=== PATIENT | female | born 1965 | race Caucasian/White ===

== ENCOUNTER 2016-12-08 18:38 | Emergency (ER) | payer OTHER ==
[~2016-12-08] VITALS: Ht 154.9 cm; Wt 57.7 kg
[2016-12-08 18:45] VITALS: TEMP 36.6; Ht 154.9 cm; Wt 57.7 kg
[2016-12-08] MEDS ORDERED: SODIUM CHLORIDE 0.9% 1000ML 1,000 ML IV STA (19:01)
[2016-12-08] MEDS ORDERED: TIZA4CAP PO (19:08)
[2016-12-08] MEDS ORDERED: MYCO250C26 PO (19:08)
[2016-12-08] MEDS ORDERED: MELATAB2 PO (19:08)
[2016-12-08] MEDS ORDERED: PRLSR20 PO (19:08)
[2016-12-08] MEDS ORDERED: B-COTAB18 PO (19:08)
[2016-12-08] MEDS ORDERED: DULO60CA44 PO (19:08)
[2016-12-08] MEDS ORDERED: CHOL1000 PO (19:08)
[2016-12-08] MEDS ORDERED: VITACAP26 PO (19:08)
[2016-12-08] MEDS ORDERED: MELO15TA4 PO (19:08)
[2016-12-08 19:22] LABS: BASO % 0.5 %; BASO ABS # 0.03 K/uL (0-0.2); COMPLETE YES; EOS % 1.7 %; HEMATOCRIT 37.5 % (37-47); IG% 0.2 %; LYMPH % 45.7 %; LYMPH ABS # 2.89 K/uL (1.2-3.4); MEAN CORPUSCULAR HEMOGLOBIN 29.9 pg (25-34); MEAN CORPUSCULAR HGB CONC 34.4 g/dl (32-36); MEAN PLATELET VOLUME 10.2 fL (7.4-10.4); MONO % 5.8 %; NEUT % 46.1 %; PLATELET COUNT 196 K/uL (130-400); RED BLOOD COUNT 4.31 M/uL (4.2-5.4); WHITE BLOOD COUNT 6.33 K/uL (4.8-10.8)
[2016-12-08 19:44] LABS: ALT/SGPT 57 U/L (12-78); AST/SGOT 30 U/L (15-37); BLOOD UREA NITROGEN 13 mg/dl (7-18); BUN/CREATININE RATIO 17.7 (10-20); CARBON DIOXIDE 28 mmol/L (21-32); CHLORIDE 108 mmol/L (98-107); CREATININE 0.73 mg/dl (0.60-1.20); GLUCOSE 97 mg/dl (70-99); POTASSIUM 3.7 mmol/L (3.5-5.1); SODIUM 143 mmol/L (136-145)
[2016-12-08 19:47] LABS: ALKALINE PHOSPHATASE 75 U/L (45-117)
--- NOTE | 2016-12-08 20:46 | DIAGNOSTIC IMAGING REPORT ---
PA CHEST WITH ABDOMINAL SERIES CLINICAL HISTORY: Constipation. Generalized abdominal pain. FINDINGS: A PA chest radiograph is obtained. No prior studies are available for comparison at the time of dictation. The examination is degraded by patient rotation. The cardiomediastinal silhouette is unremarkable. Nonspecific interstitial thickening is noted. A tiny calcified granulomas noted in the right lung base. There is no airspace consolidation or pleural effusion. No pneumothorax is seen. The bony thorax is grossly intact. Supine and erect abdominal radiographs are obtained. No prior studies are available for comparison at the time of dictation. There is a nonobstructed abdominal bowel gas pattern noting moderate to severe constipation. No intraperitoneal free air is seen. Cholecystectomy clips are noted. There are no abnormal abdominal calcifications. A small phlebolith is identified in the pelvis. The lumbosacral spine and bony pelvis appear intact. IMPRESSION: 1. No active disease in the chest. 2. Moderate to severe constipation. Electronically signed by: Bassem Ramos M.D. 12/08/2016 8:44 PM Dictated Date/Time: 12/08/2016 8:43 PM
--- NOTE | 2016-12-08 21:15 | EMERGENCY ROOM VISIT NOTE ---
History First contact with patient: 18:54 Chief Complaint: ABDOMINAL PAIN Stated Complaint: ABD/INTESTINAL PAIN Nursing Triage Summary: Abdomenal pain in right lower and left upper quads. + nausea. Pain in back and legs. Pt has h/o diverticulitis with colostomy x2 with reversal. History of Present Illness The patient is a 51 year old female who presents to the Emergency Room with complaints of abdominal pain and constipation. The patient states that she has had pain in the right lower quadrant and left upper quadrants for one month but the pain has increased over the past several days. The patient has not had a bowel movement since November 22. The patient did a fleets enema 2 days ago without any results. The patient is now complaining of nausea but denies any vomiting. The patient denies any urinary symptoms of frequency, urgency or dysuria. The patient has a history of diverticulitis with rupture 2. The patient had colostomies with reversals 2. Her last: Surgery was in 2002 and this was performed in [place]. The patient saw her PCP on November 26 for her abdominal pain and was referred to Dr. dalton. She does not have an appointment for another 2 weeks therefore she came to the emergency room. The patient denies any chronic narcotic use. She has not tried anything orally for the constipation such as MiraLAX, Dulcolax, magnesium citrate. Review of Systems 10 system review was performed and was negative unless stated otherwise history of present illness. Social History Smoking Status: Current Every Day Smoker Alcohol Use: none Drug Use: none Marital Status: single Housing Status: other (lives with her mother and her grandson) Occupation Status: unemployed Current/Historical Medications Scheduled B-Complex Vitamins (Vitamin B Complex), 1 TAB PO DAILY Cholecalciferol (Vitamin D3), 1 TAB PO DAILY Duloxetine Hcl (Cymbalta), 60 MG PO DAILY Melatonin (Melatonin Maximum Strengt), 1 TAB PO HS Meloxicam (Meloxicam), 1 TAB PO DAILY Mycophenolate Mofetil (Cellcept), 2 CAP PO BID Omeprazole (Prilosec), 20 MG PO DAILY Tizanidine (Zanaflex), 4 MG PO BID Vitamins C & E (Vitamin C), 1 CAP PO DAILY Allergies Coded Allergies: Aspirin (Unverified Allergy, Unknown, unknown, 12/08/16) Sulfamethoxazole w/Trimethoprim (Unverified Allergy, Unknown, unknown, 12/08) Physical Exam Vital Signs Date Time Temp Pulse Resp B/P Pulse Ox O2 Delivery O2 Flow Rate FiO2 12/08/16 20:17 60 20 129/80 99 Room Air 12/08/16 18:45 36.6 96 18 138/82 96 Room Air Physical Exam GENERAL: 51-year-old white female appears in no acute distress. MENTAL Status: Alert and oriented 3 MOUTH: Mucosa is moist NECK: Supple, no lymphadenopathy noted. No carotid bruits noted. LUNGS: Clear auscultation without wheezes rales or rhonchi. CARDIAC: Regular rate and rhythm without murmur. Pulses is full and equal throughout. BACK: No CVA tenderness noted. ABDOMEN: Patient has hypoactive bowel sounds in bilateral upper quadrants and right lower quadrant. Bowel sounds are absent in the left lower quadrant. The patient's abdomen is firm and has diffuse tenderness to palpation. EXTREMITIES: No cyanosis or edema noted. Medical Decision & Procedures ER Provider Diagnostic Interpretation: PA CHEST WITH ABDOMINAL SERIES CLINICAL HISTORY: Constipation. Generalized abdominal pain. FINDINGS: A PA chest radiograph is obtained. No prior studies are available for comparison at the time of dictation. The examination is degraded by patient rotation. The cardiomediastinal silhouette is unremarkable. Nonspecific interstitial thickening is noted. A tiny calcified granulomas noted in the right lung base. There is no airspace consolidation or pleural effusion. No pneumothorax is seen. The bony thorax is grossly intact. Supine and erect abdominal radiographs are obtained. No prior studies are available for comparison at the time of dictation. There is a nonobstructed abdominal bowel gas pattern noting moderate to severe constipation. No intraperitoneal free air is seen. Cholecystectomy clips are noted. There are no abnormal abdominal calcifications. A small phlebolith is identified in the pelvis. The lumbosacral spine and bony pelvis appear intact. IMPRESSION: 1. No active disease in the chest. 2. Moderate to severe constipation. Electronically signed by: Bassem Ramos M.D. 12/08/2016 8:44 PM Laboratory Results 12/08/16 19:10 Red Blood Count 4.31, Mean Corpuscular Volume 87.0, Mean Corpuscular Hemoglobin 29.9, Mean Corpuscular Hemoglobin Concent 34.4, Mean Platelet Volume 10.2, Neutrophils (%) (Auto) 46.1, Lymphocytes (%) (Auto) 45.7, Monocytes (%) (Auto) 5.8, Eosinophils (%) (Auto) 1.7, Basophils (%) (Auto) 0.5, Neutrophils # (Auto) 2.92, Lymphocytes # (Auto) 2.89, Monocytes # (Auto) 0.37, Eosinophils # (Auto) 0.11, Basophils # (Auto) 0.03 12/08/16 19:10 Test 12/08/16 19:10 White Blood Count 6.33 K/uL (4.8-10.8) Red Blood Count 4.31 M/uL (4.2-5.4) Hemoglobin 12.9 g/dL (12.0-16.0) Hematocrit 37.5 % (37-47) Mean Corpuscular Volume 87.0 fL (80-100) Mean Corpuscular Hemoglobin 29.9 pg (25-34) Mean Corpuscular Hemoglobin Concent 34.4 g/dl (32-36) Platelet Count 196 K/uL (130-400) Mean Platelet Volume 10.2 fL (7.4-10.4) Neutrophils (%) (Auto) 46.1 % Lymphocytes (%) (Auto) 45.7 % Monocytes (%) (Auto) 5.8 % Eosinophils (%) (Auto) 1.7 % Basophils (%) (Auto) 0.5 % Neutrophils # (Auto) 2.92 K/uL (1.4-6.5) Lymphocytes # (Auto) 2.89 K/uL (1.2-3.4) Monocytes # (Auto) 0.37 K/uL (0.11-0.59) Eosinophils # (Auto) 0.11 K/uL (0-0.5) Basophils # (Auto) 0.03 K/uL (0-0.2) RDW Standard Deviation 41.3 fL (36.4-46.3) RDW Coefficient of Variation 12.9 % (11.5-14.5) Immature Granulocyte % (Auto) 0.2 % Immature Granulocyte # (Auto) 0.01 K/uL (0.00-0.02) Anion Gap 7.0 mmol/L (3-11) Est Creatinine Clear Calc Drug Dose 76.1 ml/min Estimated GFR () 112.1 Estimated GFR (Non- 96.7 BUN/Creatinine Ratio 17.7 (10-20) Calcium Level 9.0 mg/dl (8.5-10.1) Total Bilirubin 0.5 mg/dl (0.2-1) Direct Bilirubin < 0.1 mg/dl (0-0.2) Aspartate Amino Transf (AST/SGOT) 30 U/L (15-37) Alanine Aminotransferase (ALT/SGPT) 57 U/L (12-78) Alkaline Phosphatase 75 U/L (45-117) Total Protein 7.5 gm/dl (6.4-8.2) Albumin 4.0 gm/dl (3.4-5.0) Lipase 148 U/L (73-393) Medications Administered Medications (Trade) Dose Ordered Sig/Arnold Route Start Time Stop Time Status Last Admin Dose Admin Sodium Chloride (Nss 1000ml) 1,000 ml @ 999 mls/hr Q1H1M STAT IV 12/08/16 19:01 12/08/16 20:01 DC 12/08/16 19:20 999 MLS/HR ED Course The patient was evaluated. IV access was obtained. The patient was given 1 L normal saline wide-open. The patient was offered pain medication but declined. CBC and differential, renal profile, LFTs and lipase levels were ordered. Abdominal series x-ray was ordered and interpreted by the radiologist and myself as above with moderate to severe constipation no obstruction was noted.. Labs are reviewed and were unremarkable. The patient was informed of all findings. The patient's case was discussed with Dr. Stearns who agreed with treatment plan. He recommended that the patient do magnesium Citrate followed by MiraLAX daily. I spoke with the patient. She states she has done that magnesium Citrate and does not tolerate it. She states she vomits immediately. The patient was then given instructions on taking an alternate plan of MiraLAX and Dulcolax. This will be given to the patient at discharge. The patient was discharged home in stable condition. Medical Decision Differential diagnosis include bowel obstruction, fecal impaction, constipation Impression Primary Impression: Constipation Departure Information Dispostion Home / Self-Care Condition GOOD Referrals No Doctor, Assigned (PCP) Forms Call Back Authorization, HOME CARE DOCUMENTATION FORM, IMPORTANT VISIT INFORMATION Patient Instructions Constipation, [employer] Additional Instructions Push fluids. Take half a bottle of MiraLAX with 32 ounces of Gatorade. 4-6 hours later take the second half of the bottle of MiraLAX with 32 ounces of Gatorade and 4 Ducolav. If you do not have a bowel movement within 24 hours, return to the ER. Recommend continuing MiraLAX daily as directed on the label. Follow-up with your family doctor next week for reevaluation. Keep your scheduled appointment with Dr. dalton
[2016-12-08 21:19] VITALS: BP 133/90; PULSE 57; O2SAT 97
[2017-02-01] MEDS ORDERED: B-COTAB18 PO (12:55)
[2017-02-01] MEDS ORDERED: LINA1CAP PO (12:55)
[2017-02-01] MEDS ORDERED: CHOL100010 PO (12:55)
[2017-02-01] MEDS ORDERED: ASCA500 PO (12:55)
[2017-02-01] MEDS ORDERED: CETI10TA10 PO (12:55)
== END 2016-12-08 21:29 | disposition home or self-care (01) ==
LOC: C.EDB 18:40 → C.EDA 21:29
DX: K59.00 Constipation, unspecified (principal); R11.0 Nausea; F17.210 Nicotine dependence, cigarettes, uncomplicated; Z79.899 Other long term (current) drug therapy

== ENCOUNTER → 2017-01-31 | Outpatient (CLI) | payer OTHER ==
[~2017-01-31] MED LIST: ASCA500 PO; B-COTAB18 PO; CETI10TA10 PO; CHOL1000 PO; CHOL100010 PO; DULO60CA44 PO; LINA1CAP PO; MELATAB2 PO; MELO15TA4 PO; MYCO250C26 PO; OPTIRAY 320 IV PRN; PRLSR20 PO; TIZA4CAP PO; VITACAP26 PO
--- NOTE | 2017-01-31 13:43 | DIAGNOSTIC IMAGING REPORT ---
CT OF THE ABDOMEN AND PELVIS WITH CONTRAST CLINICAL HISTORY: Abdominal pain of multiple sites. Constipation. COMPARISON STUDY: The bowel series December 08, 2016. TECHNIQUE: Following IV administration of 110 mL of Optiray-320, axial images of the abdomen and pelvis were obtained from the lung bases to the proximal femurs. Images were reviewed in the axial, sagittal, and coronal planes. IV contrast was administered without complication. Oral contrast was administered. CT DOSE: 273.79 mGy.cm FINDINGS: The liver, spleen, adrenal glands and pancreas are unremarkable. There is no significant biliary ductal dilatation status post cholecystectomy. There is no hydronephrosis. A 6 mm hypodense lesion within the midpole of the right kidney is too small to characterize but likely reflects a cyst. There is no hydronephrosis. There is no evidence for a bowel obstruction. There is a large amount stool within the colon. There is minimal stool within the rectum. The appendix is not visualized. There is no lymphadenopathy or ascites. There is moderate atherosclerotic plaque of the abdominal aorta which is normal in caliber. No suspicious osseous lesions are present. IMPRESSION: 1. No acute process within the abdomen or pelvis. 2. Large amount of stool within the colon. No bowel obstruction. Electronically signed by: Malcolm Christine M.D. 01/31/2017 1:42 PM Dictated Date/Time: 01/31/2017 1:35 PM
== END | disposition home or self-care (01) ==
LOC: C.CTS 10:19
PROVIDERS: ATTEND Internal Medicine
DX: R10.9 Unspecified abdominal pain (principal)

== ENCOUNTER → 2017-02-11 | Day surgery (SDC) | payer OTHER ==
[2017-02-01 12:58] VITALS: Ht 154.9 cm; Wt 58.6 kg
[~2017-02-11] VITALS: Ht 154.9 cm; Wt 58.6 kg
[~2017-02-11] MED LIST changes: -CHOL1000 PO; +LIDOCAINE HCL 2% 2 ML VIAL (20MG/ML) ONE; +MIDAZOLAM HCL 1 MG/ML 2ML VIAL ONE; +ONDANSETRON INJ 2 MG/ML 2 ML VIAL ONE; -OPTIRAY 320 IV PRN; +PROPOFOL IV EMULSION 10 MG/ML 20 ML VIAL IV ONE; -VITACAP26 PO
--- NOTE | 2017-02-11 14:16 | Endo History and Physical ---
History & Physical Date of Service: February 11, 2017. Chief Complaint: abdominal pain,bloating and constipation Referring Physician: no PCP assigned History of Present Illness 52 yo CF who presents for Colonoscopy secondary to abdominal pain, bloating and constipation. Past Surgical History Hx Cardiac Surgery: No Hx Internal Defibrillator: No Hx Pacemaker: No Hx Abdominal Surgery: Yes (COLON RESECTION WITH COLOSTOMY AND REVERSAL X2, ABD SURGERY FOR INFECTION) Hx of Implantable Prosthesis: No Hx Post-Op Nausea and Vomiting: No Hx Cancer Surgery: No Hx Thoracic Surgery: No Hx Orthopedic: Yes (TRIGGER FINGER) Hx Urinary Tract Surgery: No Family History Colon CA, IBD Social History Smoking Status: Current Every Day Smoker Hx Substance Use: No Hx Alcohol Use: No Allergies Coded Allergies: Aspirin (Verified Allergy, Unknown, NOSE BLEEDS, 02/11/17) Sulfamethoxazole w/Trimethoprim (Verified Allergy, Unknown, HIVES, 02/11/17) Current Medications Reported Home Medications Medications Dose Route/Sig Max Daily Dose Days Date Category Vitamin C (Ascorbic Acid) 500 Mg Tab 1 Tab PO QAM 02/01/17 Reported Vitamin B Complex (B-Complex Vitamins) 1 Tab Tab 1 Tab PO QAM 02/01/17 Reported Vitamin D (Cholecalciferol) 1,000 Unit Tab 1 Tab PO QAM 02/01/17 Reported Zyrtec (Cetirizine Hcl) 10 Mg Tab 10 Mg PO QAM 02/01/17 Reported Linzess (Linaclotide) 145 Mcg Cap 1 Cap PO QAM 02/01/17 Reported Melatonin Maximum Strengt (Melatonin) 5 Mg Tab 1 Tab PO HS 12/08/16 Reported Cellcept (Mycophenolate Mofetil) 250 Mg Cap 1 Cap PO BID 12/08/16 Reported Meloxicam 15 Mg Tab 1 Tab PO HS 12/08/16 Reported Zanaflex (Tizanidine HCl) 4 Mg Cap 4 Mg PO BID 12/08/16 Reported Prilosec (Omeprazole) 20 Mg Capcr 20 Mg PO HS 12/08/16 Reported Cymbalta (Duloxetine Hcl) 60 Mg Cap 60 Mg PO HS 12/08/16 Reported Vital Signs Weight (Kilograms): 58.64 Height (Feet): 5 Height (Inches): 1 Date Time Temp Pulse Resp B/P Pulse Ox O2 Delivery O2 Flow Rate FiO2 02/11/17 13:51 36.7 95 20 117/79 96 Room Air Physical Exam General Appearance: WD/WN, no apparent distress Respiratory/Chest: Auscultation: breath sounds normal Cardiovascular: Heart Auscultation: RRR Abdomen: Bowel Sounds: normal Inspection & Palpation: soft, non-distended, no tenderness, guarding & rebound Assessment and Plan Assessment: 52 yo CF who presents for Colonoscopy secondary to abdominal pain, bloating and constipation. Plan: Proceed with colonoscopy.
--- NOTE | 2017-02-11 14:49 | Discharge Instructions ---
Endoscopy Patient Instructions Date / Procedure(s) Performed February 11, 2017. Colonoscopy Allergy Information Coded Allergies: Aspirin (Verified Allergy, Unknown, NOSE BLEEDS, 02/11/17) Sulfamethoxazole w/Trimethoprim (Verified Allergy, Unknown, HIVES, 02/11/17) Discharge Date / Findings February 11, 2017. Normal colonoscopy Medication Instructions Stopped Medication(s): stopped all meds on Saturday OK to resume all medications today as prescribed Reported Home Medications Medications Dose Route/Sig Max Daily Dose Days Date Category Vitamin C (Ascorbic Acid) 500 Mg Tab 1 Tab PO QAM 02/01/17 Reported Vitamin B Complex (B-Complex Vitamins) 1 Tab Tab 1 Tab PO QAM 02/01/17 Reported Vitamin D (Cholecalciferol) 1,000 Unit Tab 1 Tab PO QAM 02/01/17 Reported Zyrtec (Cetirizine Hcl) 10 Mg Tab 10 Mg PO QAM 02/01/17 Reported Linzess (Linaclotide) 145 Mcg Cap 1 Cap PO QAM 02/01/17 Reported Melatonin Maximum Strengt (Melatonin) 5 Mg Tab 1 Tab PO HS 12/08/16 Reported Cellcept (Mycophenolate Mofetil) 250 Mg Cap 1 Cap PO BID 12/08/16 Reported Meloxicam 15 Mg Tab 1 Tab PO HS 12/08/16 Reported Zanaflex (Tizanidine HCl) 4 Mg Cap 4 Mg PO BID 12/08/16 Reported Prilosec (Omeprazole) 20 Mg Capcr 20 Mg PO HS 12/08/16 Reported Cymbalta (Duloxetine Hcl) 60 Mg Cap 60 Mg PO HS 12/08/16 Reported Provider Instructions Activity Restrictions - No exercising or heavy lifting for 24 hours. - Do not drink alcohol the day of the procedure. - Do not drive a car or operate machinery until the day after the procedure. - Do not make any important decisions or sign important papers in 24 hours after the procedure. Following Day: - Return to full activity which may include returning to work/school. Diet Start your diet with liquids and light foods (jello, soup, juice, toast). Then eat your usual diet if not nauseated. Treatment For Common After Affects For mild abdominal pain, bloating, or excessive gas: - Rest - Eat lightly - Lie on right side Follow-Up Information Follow-up with no PCP assigned as scheduled Anesthesia Information What You Should Know You have had a procedure that required some medicine to reduce anxiety and discomfort. This treatment is called moderate sedation. After receiving the treatment, you may be sleepy, but you will be able to breathe on your own. The effects of the treatment may last for several hours. Follow these instructions along with Activity/Diet recommendations noted above: * Do NOT do anything where dizziness or clumsiness would be dangerous. * Rest quietly at home today, then you can be up and about tomorrow. * Have a responsible person stay with you the rest of today. * You may have had an I.V. today. If so, you may take the dressing off later today. Recommendations Call your doctor if: * Trouble breathing * Continuous vomiting for more than 24 hours * Temperature above 101 degrees * Severe abdominal pain or bloating * Pain not relieved by pain medicine ordered * There is increased drainage or redness from any incision * A large amount of rectal bleeding greater than 2-3 tablespoons. (If you had a polyp/s removed or have hemorrhoids, a small amount of blood - from the rectum is to be expected.) * You have any unanswered questions or concerns. IN THE EVENT OF A SERIOUS EMERGENCY, GO TO THE NEAREST EMERGENCY ROOM Your discharge instructions were prepared by provider Jeff Stapleton. Patient Instructions Signature Page Glenny Silva Patient (or Guardian) Signature/Date: I have read and understand the instructions given to me by my caregivers. Caregiver/RN/Doctor Signature/Date: The above-named patient and/or guardian has received patient instructions on this date. + Original Patient Signature Page (only) stays with chart. Please make copy for patient.
--- NOTE | 2017-02-11 14:58 | GI REPORT ---
Procedure Date: 02/11/2017 2:16 PM Procedure: Colonoscopy Indications: Generalized abdominal pain, Incidental constipation noted Medicines: Monitored Anesthesia Care Complications: No immediate complications. Estimated Blood Loss: Estimated blood loss: none. Procedure: Pre-Anesthesia Assessment: - Prior to the procedure, a History and Physical was performed, and patient medications and allergies were reviewed. The patient's tolerance of previous anesthesia was also reviewed. The risks and benefits of the procedure and the sedation options and risks were discussed with the patient. All questions were answered, and informed consent was obtained. Prior Anticoagulants: The patient has taken no previous anticoagulant or antiplatelet agents. ASA Grade Assessment: II - A patient with mild systemic disease. After reviewing the risks and benefits, the patient was deemed in satisfactory condition to undergo the procedure. After I obtained informed consent, the scope was passed under direct vision. Throughout the procedure, the patient's blood pressure, pulse, and oxygen saturations were monitored continuously. The scope was introduced through the anus and advanced to the ileocolonic anastomosis. The colonoscopy was performed without difficulty. The patient tolerated the procedure well. The quality of the bowel preparation was good. The terminal ileum, ileocecal valve, appendiceal orifice, and rectum were photographed. Findings: There was evidence of a prior end-to-side ileo-colonic anastomosis in the ascending colon. This was patent and was characterized by healthy appearing mucosa. The anastomosis was not traversed. Impression: - Patent end-to-side ileo-colonic anastomosis, characterized by healthy appearing mucosa. - No specimens collected. Recommendation: - Resume previous diet. - Continue present medications. - Repeat colonoscopy in 10 years for surveillance. - Return to primary care physician as previously scheduled. Jeff Stapleton, 02/11/2017 2:57:30 PM This report has been signed electronically. Note Initiated On: 02/11/2017 2:16 PM I attest to the content of the Intraoperative Record and orders documented therein, exceptions below
[2017-02-11 15:15] VITALS: BP 109/78; PULSE 78; O2SAT 98
--- NOTE | 2017-02-11 16:02 | Anesthesiology Progress Note ---
Anesthesia Post Op Note Date & Time February 11, 2017 at 16:01 Vital Signs Pain Intensity: 0 Vital Signs Past 12 Hours Date Time Temp Pulse Resp B/P Pulse Ox O2 Delivery O2 Flow Rate FiO2 02/11/17 15:15 78 20 109/78 98 Room Air 02/11/17 14:59 75 16 101/58 98 Room Air 02/11/17 14:43 84 16 93/56 96 Room Air 02/11/17 13:51 36.7 95 20 117/79 96 Room Air Notes Mental Status: alert / awake / arousable, participated in evaluation Pt Amnestic to Procedure: Yes Nausea / Vomiting: adequately controlled Pain: adequately controlled Airway Patency, RR, SpO2: stable & adequate BP & HR: stable & adequate Hydration State: stable & adequate Anesthetic Complications: no major complications apparent
== END | disposition home or self-care (01) ==
LOC: C.GI 13:31
PROVIDERS: ATTEND Internal Medicine
DX: R10.84 Generalized abdominal pain (principal); K59.00 Constipation, unspecified; F17.200 Nicotine dependence, unspecified, uncomplicated; Z90.49 Acquired absence of other specified parts of digestive tract; Z80.0 Family history of malignant neoplasm of digestive organs

== ENCOUNTER 2017-11-29 16:56 | Inpatient (IN) | payer OTHER ==
[~2017-11-29] VITALS: Ht 154.9 cm; Wt 55.6 kg
[~2017-11-29 16:56] MED LIST changes: -DULO60CA44 PO; -LIDOCAINE HCL 2% 2 ML VIAL (20MG/ML) ONE; -MELATAB2 PO; -MELO15TA4 PO; -MIDAZOLAM HCL 1 MG/ML 2ML VIAL ONE; -MYCO250C26 PO; -ONDANSETRON INJ 2 MG/ML 2 ML VIAL ONE; -PRLSR20 PO; -PROPOFOL IV EMULSION 10 MG/ML 20 ML VIAL IV ONE; -TIZA4CAP PO
[2017-11-29] MEDS ORDERED: SODIUM CHLORIDE 0.9% 1000ML 1,000 ML IV STA (17:22)
[2017-11-29] MEDS ORDERED: CEFEPIME IV 2,000 MG in DEXTROSE 5% 100ML 100 ML IV STA (17:22)
[2017-11-29] MEDS ORDERED: ACETAMINOPHEN IV 100 ML IV STA (17:22)
[2017-11-29] MEDS ORDERED: VANCOMYCIN INJ 1,250 MG in SODIUM CHLORIDE 0.9% 500ML 500 ML IV STA (17:22)
[2017-11-29] MEDS ORDERED: VANCOMYCIN CONSULT ACTIVE PRN ×2 (17:30→19:45)
[2017-11-29] MEDS ORDERED: CYM/30 PO (17:48)
[2017-11-29] MEDS ORDERED: LINA72CA PO (17:48)
--- NOTE | 2017-11-29 17:55 | EMERGENCY ROOM VISIT NOTE ---
ED Visit Note First contact with patient: 17:06 CHIEF COMPLAINT: Left hand/arm infection HISTORY OF PRESENTING ILLNESS: This is a 52-year-old female who presents to the emergency department with complaint of left arm infection that started a few days ago. Patient states that she was playing with a puppy and got scratched on her left hand 5 days ago. She began to have some redness and swelling in the hand and went to another emergency department on Saturday evening, where she was given IM Rocephin and sent home on Keflex, which she has been taking. She states that the pain and swelling in her hand and arm have been getting progressively worse and last night she noticed red streaking up her arm. She saw her PCP today and he sent her to the ER for further evaluation. She states that she has constant pain, cannot move her fingers or make a fist due to pain and swelling, has excruciating pain with bending or straightening the elbow, rates her pain as 10/10. She has been taking Tylenol for her pain without improvement. She reports some associated chills, but denies any fevers, denies any numbness or tingling in the arm or fingers. She has noticed a small amount of yellow drainage from the wound on her left hand. She is right-hand dominant. Her tetanus is up-to-date. She is a current every day smoker, but is not a diabetic. She is on CellCept as a treatment for lupus. REVIEW OF SYSTEMS: A complete 10 point review of systems was reviewed with the patient with pertinent positives and negatives as per history of present illness. All else were negative. PAST MEDICAL HISTORY: Reviewed in chart. SOCIAL HISTORY: Lives at home with family. She is a current everyday smoker. She denies alcohol and recreational drugs. ALLERGIES: Reviewed in chart. PHYSICAL EXAM: CONSTITUTIONAL: Pleasant and cooperative. No acute distress, but appears in significant pain during exam. Mildly dehydrated, but otherwise well appearing and well nourished. HEENT: Normocephalic, atraumatic. Pupils equal, round and reactive to light, EOMI. TMs normal. Pharynx normal. Tacky mucous membranes. NECK: Supple, full active range of motion without discomfort. RESPIRATORY: Clear to auscultation bilaterally with no wheezing, crackles, rhonchi or stridor. Equal expansion bilaterally. CARDIOVASCULAR: Regular rate and rhythm with no murmurs, rubs or gallops. Normal peripheral perfusion. No edema. GASTROINTESTINAL: Soft, nontender, nondistended. No palpable masses or HSM. Bowel sounds present in all quadrants. MUSCULOSKELETAL: There is a superficial wound noted over the MCP joint of the left fifth finger, tender to palpation, with a small amount of yellow purulent discharge noted. There is diffuse erythema and swelling of the left hand, wrist , forearm, extending up to the mid upper arm. Significantly tender to palpation. There is red streaking noted on the anterior portion of the forearm extending proximal to the elbow joint. Patient has significant tenderness with passive flexion and extension of the fingers and wrist, unable to fully bend or straighten the elbow due to pain. The forearm compartments are soft to palpation. She is unable to approximate her thumb and fingers of the left hand , unable to make a fist. Sensation intact to light touch. Full range of motion of all other joints without discomfort. INTEGUMENTARY: No rash or other significant dermatologic conditions noted. NEUROLOGIC: Alert and oriented X 4 with normal affect. Normal speech. Normal gait observed. ED COURSE AND MEDICAL DECISION MAKING: CC: Patient presenting with complaint of left hand/arm cellulitis DIFFERENTIAL DIAGNOSIS: Includes, but not limited to cellulitis, abscess, MRSA infection, osteomyelitis, tenosynovitis, joint infection, sepsis/bacteremia, among others. INTERPRETATION OF LABS: No leukocytosis, no anemia, no significant electrolyte abnormality, normal renal function, normal liver enzymes. Coagulation factors within normal limits. ESR and CRP are elevated. IMAGING: L HAND MIN 3 VIEWS ROUTINE CLINICAL HISTORY: Cellulitis. Possible osteomyelitis. Redness. COMPARISON: None. DISCUSSION: No fractures or dislocations are visualized. There are no radiopaque foreign bodies. No air is visualized in the soft tissues. There are minor arthritic changes. There are no conventional radiographic findings to indicate acute osteomyelitis IMPRESSION: 1. No evidence of fracture 2. No evidence of osteomyelitis ----- L FOREARM 2 VIEWS ROUTINE CLINICAL HISTORY: Left forearm pain. Infection. EVALUATE FOR OSTEOMYELITIS COMPARISON: None. DISCUSSION: No fractures or dislocations are visualized. There are no radiopaque foreign bodies. There is no conventional radiographic evidence of osteomyelitis. IMPRESSION: 1. No evidence of fracture 2. No evidence of osteomyelitis ----- L HUMERUS MIN 2 VIEWS ROUTINE CLINICAL HISTORY: Left upper arm pain INFECTION COMPARISON: None. DISCUSSION: No fractures or dislocations are visualized. No radiopaque foreign bodies are visualized. There is no evidence of osteomyelitis. IMPRESSION: Unremarkable conventional radiographic evaluation of the left humerus. MEDICATION RECONCILIATION: I attest that I have personally reviewed the patient 's current medication list. INITIAL VITAL SIGNS REVIEW: I reviewed the patient's initial vital signs and interpret them as follows: T: Afebrile; BP: Normotensive; HR: Tachycardic; RR : Within the; Pulse Ox: Limits within normal limits on room air. Blood pressure screening: The patient was found to have normal blood pressure on screening and does not require follow-up for repeat blood pressure check. SUMMARY: Patient was evaluated at bedside, history and physical exam performed. Patient is alert and oriented, no acute distress, but does appear to be in significant pain, resting in the stretcher. Patient has moderate swelling of the left hand and forearm with red streaking noted extending from the hand to mid upper arm. Patient has significant pain with passive flexion and extension of the fingers, wrist, and elbow, as well as pain with palpation of the tendons in the wrist and hand. Orders were placed at bedside for labs, IV fluids, wound culture, blood cultures , IV cefepime and vancomycin for broad coverage, x-rays of the left hand, forearm, and humerus to evaluate for cellulitis. I offered the patient something for pain, she does not want any narcotics, therefore IV Tylenol was ordered for pain. Given the patient's pain with manipulation of the tendons, I am concerned for tenosynovitis, as well as worsening cellulitis and potential bacteremia given the streaking up the arm. Patient discussed with Dr. Mcbride, who also examined the patient and agrees with my assessment and plan. Labs and imaging reviewed as above, consistent with findings of cellulitis, no evidence of osteomyelitis, soft tissue gas, or fluid collections. On my review of the patient's x-rays, there is a small lucency overlying the mid proximal phalanx of the fifth finger, which does correlate with patient's open wound. I spoke on the phone with Dr. Corley, radiologist, who reassessed the films and feels that this lucency represents a bony process and is not consistent with a soft tissue foreign body. I spoke with Dr. Blank, orthopedics, who agrees with our management thus far the patient. He did not recommend placing the patient in a splint at this time , he agrees to the consult and requested the patient be kept NPO after midnight if the potential for surgery arises. [facility] Patient reassessed multiple times throughout ED stay, she remained stable and appears comfortable. Patient was updated on all results and plan for admission, she verbalized understanding and was agreeable to this plan. Patient was stable at time of admission. Current/Historical Medications Scheduled Ascorbic Acid (Vitamin C), 500 MG PO QAM B-Complex Vitamins (Vitamin B Complex), 1 TAB PO QAM Cetirizine Hcl (Zyrtec), 10 MG PO QAM Cholecalciferol (Vitamin D), 1,000 INTER.UNIT PO QAM Duloxetine HCl (Cymbalta), 30 MG PO DAILY Duloxetine Hcl (Cymbalta), 60 MG PO HS Linaclotide (Linzess), 72 MCG PO QAM Melatonin (Melatonin Maximum Strengt), 5 MG PO HS Meloxicam (Meloxicam), 15 MG PO HS Mycophenolate Mofetil (Cellcept), 250 MG PO BID Omeprazole (Prilosec), 20 MG PO HS Tizanidine (Zanaflex), 4 MG PO BID Allergies Coded Allergies: Aspirin (Verified Allergy, Unknown, NOSE BLEEDS, 02/11/17) Sulfamethoxazole w/Trimethoprim (Verified Allergy, Unknown, HIVES, 02/11/17) Vital Signs Date Time Temp Pulse Resp B/P (MAP) Pulse Ox O2 Delivery O2 Flow Rate FiO2 11/29/17 19:00 89 16 109/59 96 Room Air 11/29/17 17:02 36.8 110 20 106/64 97 Room Air Laboratory Results 11/29/17 17:58 Red Blood Count 4.37, Mean Corpuscular Volume 87.9, Mean Corpuscular Hemoglobin 29.7, Mean Corpuscular Hemoglobin Concent 33.9, Mean Platelet Volume 10.3, Neutrophils (%) (Auto) 69.1, Lymphocytes (%) (Auto) 22.3, Monocytes (%) (Auto) 7.2, Eosinophils (%) (Auto) 0.9, Basophils (%) (Auto) 0.2, Neutrophils # (Auto) 7.00, Lymphocytes # (Auto) 2.26, Monocytes # (Auto) 0.73, Eosinophils # (Auto) 0.09, Basophils # (Auto) 0.02 11/29/17 17:58 Test 11/29/17 17:58 White Blood Count 10.13 K/uL (4.8-10.8) Red Blood Count 4.37 M/uL (4.2-5.4) Hemoglobin 13.0 g/dL (12.0-16.0) Hematocrit 38.4 % (37-47) Mean Corpuscular Volume 87.9 fL (80-100) Mean Corpuscular Hemoglobin 29.7 pg (25-34) Mean Corpuscular Hemoglobin Concent 33.9 g/dl (32-36) Platelet Count 171 K/uL (130-400) Mean Platelet Volume 10.3 fL (7.4-10.4) Neutrophils (%) (Auto) 69.1 % Lymphocytes (%) (Auto) 22.3 % Monocytes (%) (Auto) 7.2 % Eosinophils (%) (Auto) 0.9 % Basophils (%) (Auto) 0.2 % Neutrophils # (Auto) 7.00 K/uL (1.4-6.5) Lymphocytes # (Auto) 2.26 K/uL (1.2-3.4) Monocytes # (Auto) 0.73 K/uL (0.11-0.59) Eosinophils # (Auto) 0.09 K/uL (0-0.5) Basophils # (Auto) 0.02 K/uL (0-0.2) RDW Standard Deviation 41.4 fL (36.4-46.3) RDW Coefficient of Variation 12.8 % (11.5-14.5) Immature Granulocyte % (Auto) 0.3 % Immature Granulocyte # (Auto) 0.03 K/uL (0.00-0.02) Erythrocyte Sedimentation Rate 34 mm/hr (0-21) Prothrombin Time 9.7 SECONDS (9.0-12.0) Prothromb Time International Ratio 0.9 (0.9-1.1) Activated Partial Thromboplast Time 30.6 SECONDS (21.0-31.0) Partial Thromboplastin Ratio 1.2 Anion Gap 5.0 mmol/L (3-11) Est Creatinine Clear Calc Drug Dose 68.6 ml/min Estimated GFR () 109.5 Estimated GFR (Non- 94.5 BUN/Creatinine Ratio 28.7 (10-20) Calcium Level 9.3 mg/dl (8.5-10.1) Total Bilirubin 0.9 mg/dl (0.2-1) Direct Bilirubin 0.2 mg/dl (0-0.2) Aspartate Amino Transf (AST/SGOT) 30 U/L (15-37) Alanine Aminotransferase (ALT/SGPT) 46 U/L (12-78) Alkaline Phosphatase 104 U/L (45-117) C-Reactive Protein 14.40 mg/dl (0-0.29) Total Protein 8.2 gm/dl (6.4-8.2) Albumin 3.7 gm/dl (3.4-5.0) Medications Administered Medications (Trade) Dose Ordered Sig/Arnold Route Start Time Stop Time Status Last Admin Dose Admin Sodium Chloride 1,000 ml @ 999 mls/hr Q1H1M STAT IV 11/29/17 17:22 11/29/17 18:22 DC 11/29/17 18:49 999 MLS/HR Acetaminophen 100 ml @ 400 mls/hr NOW STAT IV 11/29/17 17:22 11/29/17 17:36 DC 11/29/17 18:50 400 MLS/HR Cefepime HCl 2000 mg/Dextrose 112.5 ml @ 200 mls/hr NOW STAT IV 11/29/17 17:22 11/29/17 17:55 DC 11/29/17 18:49 200 MLS/HR Vancomycin HCl 1250 mg/Sodium Chloride 275 ml @ 125 mls/hr 1800 IV 11/29/17 18:00 11/29/17 20:11 DC 11/29/17 18:00 125 MLS/HR Departure Information Referrals Matthew Dudley PA-C (PCP) Patient Instructions [facility]
[2017-11-29] MEDS ORDERED: VANCOMYCIN INJ 1,250 MG in SODIUM CHLORIDE 0.9% 250ML 250 ML IV SCH (18:00)
[2017-11-29 18:19] LABS: BASO % 0.2 %; BASO ABS # 0.02 K/uL (0-0.2); EOS % 0.9 %; EOS ABS # 0.09 K/uL (0-0.5); HEMATOCRIT 38.4 % (37-47); IG# 0.03 K/uL (0.00-0.02); LYMPH % 22.3 %; LYMPH ABS # 2.26 K/uL (1.2-3.4); MEAN CELL VOLUME 87.9 fL (80-100); MEAN CORPUSCULAR HEMOGLOBIN 29.7 pg (25-34); MEAN CORPUSCULAR HGB CONC 33.9 g/dl (32-36); MEAN PLATELET VOLUME 10.3 fL (7.4-10.4); MONO % 7.2 %; MONO ABS # 0.73 K/uL (0.11-0.59); NEUT % 69.1 %; PLATELET COUNT 171 K/uL (130-400); RED CELL DISTRIBUTION WIDTH CV 12.8 % (11.5-14.5); RED CELL DISTRIBUTION WIDTH SD 41.4 fL (36.4-46.3); WHITE BLOOD COUNT 10.13 K/uL (4.8-10.8)
[2017-11-29 18:30] LABS: INR 0.9 (0.9-1.1); PTT PATIENT 30.6 SECONDS (21.0-31.0)
[2017-11-29 18:41] LABS: ALBUMIN 3.7 gm/dl (3.4-5.0); CALCIUM 9.3 mg/dl (8.5-10.1); CREATININE 0.74 mg/dl (0.60-1.20); POTASSIUM 3.5 mmol/L (3.5-5.1)
--- NOTE | 2017-11-29 18:42 | DIAGNOSTIC IMAGING REPORT ---
L HAND MIN 3 VIEWS ROUTINE CLINICAL HISTORY: Cellulitis. Possible osteomyelitis. Redness. COMPARISON: None. DISCUSSION: No fractures or dislocations are visualized. There are no radiopaque foreign bodies. No air is visualized in the soft tissues. There are minor arthritic changes. There are no conventional radiographic findings to indicate acute osteomyelitis IMPRESSION: 1. No evidence of fracture 2. No evidence of osteomyelitis Electronically signed by: Rodo Corley M.D. 11/29/2017 6:41 PM Dictated Date/Time: 11/29/2017 6:40 PM
[2017-11-29 18:43] LABS: TOTAL PROTEIN 8.2 gm/dl (6.4-8.2)
--- NOTE | 2017-11-29 18:46 | DIAGNOSTIC IMAGING REPORT ---
L HUMERUS MIN 2 VIEWS ROUTINE CLINICAL HISTORY: Left upper arm pain INFECTION COMPARISON: None. DISCUSSION: No fractures or dislocations are visualized. No radiopaque foreign bodies are visualized. There is no evidence of osteomyelitis. IMPRESSION: Unremarkable conventional radiographic evaluation of the left humerus. Electronically signed by: Rodo Corley M.D. 11/29/2017 6:45 PM Dictated Date/Time: 11/29/2017 6:44 PM
--- NOTE | 2017-11-29 18:47 | DIAGNOSTIC IMAGING REPORT ---
L FOREARM 2 VIEWS ROUTINE CLINICAL HISTORY: Left forearm pain. Infection. EVALUATE FOR OSTEOMYELITIS COMPARISON: None. DISCUSSION: No fractures or dislocations are visualized. There are no radiopaque foreign bodies. There is no conventional radiographic evidence of osteomyelitis. IMPRESSION: 1. No evidence of fracture 2. No evidence of osteomyelitis Electronically signed by: Rodo Corley M.D. 11/29/2017 6:46 PM Dictated Date/Time: 11/29/2017 6:45 PM
[2017-11-29] MEDS ORDERED: MELO-83 PO (19:08)
[2017-11-29] MEDS ORDERED: MYCO250C26 PO (19:08)
[2017-11-29] MEDS ORDERED: PRLSR20 PO (19:08)
[2017-11-29] MEDS ORDERED: MELATAB2 PO (19:08)
[2017-11-29] MEDS ORDERED: DULO60CA44 PO (19:08)
[2017-11-29] MEDS ORDERED: TIZA4CAP PO (19:08)
[2017-11-29] MEDS ORDERED: POLYETHYLENE (MIRALAX) 17 GM PACK PO PRN (19:30)
[2017-11-29] MEDS ORDERED: ALUMINUM/MAGNESIUM/SIMETH (MAALOX MAX) 30 ML UDC PO PRN (19:30)
[2017-11-29] MEDS ORDERED: ZOLPIDEM TARTRATE 5 MG TAB PO PRN (19:30)
[2017-11-29] MEDS ORDERED: ACETAMINOPHEN 325 MG TAB PO PRN (19:30)
[2017-11-29] MEDS ORDERED: MAGNESIUM HYDROXIDE SUSP 30 ML UDC PO PRN (19:30)
[2017-11-29] MEDS ORDERED: PIPERACILL/TAZOBAC CONSULT ACTIVE PRN (19:45)
[2017-11-29 20:18] VITALS: O2SAT 96
--- NOTE | 2017-11-29 20:25 | Pharmacy Progress Note ---
Pharmacy Abx Initial Consult Date of Service Nov 29, 2017. Pharmacy Dosing Scope Date of Consult: 11/29/17 Consultation requested by: Dr. Ramírez Pharmacy is consulted to initiate Vancomycin and Zosyn IV dosing therapy, order appropriate labs and adjust drug dose/frequency. Subjective The patient is a 52 year old female admitted on . Objective Height (Feet): 5 Height (Inches): 1.00 Weight (Kilograms): 55.600 Vital Signs (Past 12Hrs) Vital Signs Past 12 Hours Date Time Temp Pulse Resp B/P (MAP) Pulse Ox O2 Delivery O2 Flow Rate FiO2 11/29/17 19:00 89 16 109/59 96 Room Air 11/29/17 17:02 36.8 110 20 106/64 97 Room Air Lab Results (24Hrs) Laboratory Tests (24 Hours) Test 11/29/17 17:58 C-Reactive Protein 14.40 mg/dl (0-0.29) H Erythrocyte Sedimentation Rate 34 mm/hr (0-21) H White Blood Count 10.13 K/uL (4.8-10.8) Red Blood Count 4.37 M/uL (4.2-5.4) Hemoglobin 13.0 g/dL (12.0-16.0) Hematocrit 38.4 % (37-47) Mean Corpuscular Volume 87.9 fL (80-100) Mean Corpuscular Hemoglobin 29.7 pg (25-34) Mean Corpuscular Hemoglobin Concent 33.9 g/dl (32-36) Platelet Count 171 K/uL (130-400) Mean Platelet Volume 10.3 fL (7.4-10.4) Neutrophils (%) (Auto) 69.1 % Lymphocytes (%) (Auto) 22.3 % Monocytes (%) (Auto) 7.2 % Eosinophils (%) (Auto) 0.9 % Basophils (%) (Auto) 0.2 % Neutrophils # (Auto) 7.00 K/uL (1.4-6.5) H Lymphocytes # (Auto) 2.26 K/uL (1.2-3.4) Monocytes # (Auto) 0.73 K/uL (0.11-0.59) H Eosinophils # (Auto) 0.09 K/uL (0-0.5) Basophils # (Auto) 0.02 K/uL (0-0.2) Micro Results Date/Time Source Procedure Growth Status 11/29/17 18:31 Blood Blood Culture Pending Received 11/29/17 17:58 Blood Blood Culture Pending Received 11/29/17 17:30 Abscess Swab Gram Stain - Preliminary Resulted 11/29/17 17:30 Abscess Swab Wound Culture Pending Resulted Risk Factors for Resistance * Immunocompromised: on cellcept for lupus * Antimicrobial use within the last 90 days: Had one dose of rocephin and a course of keflex as an outpatient. Assessment & Plan Assessment 52 year old female admitted for IV antibiotic treatment for cellulitis after a puppy scratch. Symptoms grew worse after starting keflex. She noticed a small amount of yellow drainage from the wound this morning. * Blood and abscess cultures pending * Renal function at baseline Plan Vancomycin and Zosyn for treatment of cellulitis/abscess. Vancomycin IV * Loading dose: 1250 mg (22 mg/kg) * Maintenance dose: 750 mg IV (13 mg/kg) every 14 hours * Goal trough level for cellulitis : 10 to 15 mcg/mL * Trough level ordered for 12/01 @0730 Piperacillin/tazobactam * 3.375g bolus administered over 30 minutes, then 3.375 g IV extended infusion every 8 hours for CrCl greater than 20 mL/min Pharmacy will continue to follow and will adjust dose/frequency as necessary. Thank you.
[2017-11-29 20:40] VITALS: BP 114/68; PULSE 83; TEMP 36.8; Ht 154.9 cm; Wt 55.6 kg
[2017-11-29] MEDS ORDERED: NON-FORMULARY MEDICATION (Melatonin (Melatonin Maximum Strengt) 5 MG) PO SCH (21:00)
[2017-11-29] MEDS: MYCOPHENOLATE MOFETIL 250 MG CAP (CELLCEPT) PO SCH (21:36)
[2017-11-29] MEDS: KETOROLAC TROMETHAMINE 15 MG/ML VIAL IV PRN (21:36)
[2017-11-29] MEDS: DULOXETINE (CYMBALTA) 30 MG CAP PO SCH (21:38)
[2017-11-29] MEDS: PANTOprazole SOD 40 MG TAB PO SCH (21:38)
--- NOTE | 2017-11-29 21:58 | History and Physical ---
History & Physical Date & Time of Service: Nov 29, 2017 at 21:58 Chief Complaint: Left Arm Cellulitis, Left Upper Extremity Swelling Primary Care Physician: Matthew Dudley PA-C History of Present Illness Source: patient, hospital records The patient is a 52-year-old female presents to the emergency department with left arm discomfort, redness and swelling after a dog bite to her left hand 5 days ago. She reports that the swelling and redness initially began in her hand , since that time extended up her arm not involving the axilla. She is unable to clench her fists or bend her elbow. She had been seen at a local emergency department 2 evenings ago, was given IM ceftriaxone, and sent home on Keflex which she has been taking. She denies fevers, but has had chills. She has noticed a small amount of yellow drainage from the wound on her left hand. She is on CellCept as a treatment for lupus. Family History Noncontributory Social History Smoking Status: Current Every Day Smoker Smokeless Tobacco Use: No Alcohol Use: none Drug Use: none Marital Status: single Housing status: lives with family Occupational Status: unemployed Immunizations History of Influenza Vaccine: Unknown History of Tetanus Vaccine?: Yes History of Pneumococcal: No History of Hepatitis B Vaccine: Unknown Multi-Drug Resistant Organisms History of MDRO: No Allergies Coded Allergies: Aspirin (Verified Allergy, Unknown, NOSE BLEEDS, 02/11/17) Sulfamethoxazole w/Trimethoprim (Verified Allergy, Unknown, HIVES, 02/11/17) Home Medications Scheduled Ascorbic Acid (Vitamin C), 500 MG PO QAM B-Complex Vitamins (Vitamin B Complex), 1 TAB PO QAM Cetirizine Hcl (Zyrtec), 10 MG PO QAM Cholecalciferol (Vitamin D), 1,000 INTER.UNIT PO QAM Duloxetine HCl (Cymbalta), 30 MG PO DAILY Duloxetine Hcl (Cymbalta), 60 MG PO HS Linaclotide (Linzess), 72 MCG PO QAM Melatonin (Melatonin Maximum Strengt), 5 MG PO HS Meloxicam (Meloxicam), 15 MG PO HS Mycophenolate Mofetil (Cellcept), 250 MG PO BID Omeprazole (Prilosec), 20 MG PO HS Tizanidine (Zanaflex), 4 MG PO BID Review of Systems The patient denies chest pain, palpitations, shortness of breath, dyspnea on exertion, cough, lower extremity swelling, sore throat, fevers, sweats, weight change, nausea, vomiting, diarrhea , constipation, abdominal pain, pelvic pain, blood in urine or stool, dysuria, urinary frequency or urgency, lightheadedness , dizziness, headache, memory loss, loss of consciousness, abnormal bruising or bleeding, imbalance, focal or generalized weakness, numbness or tingling in right arm or bilateral legs, generalized arthralgias or myalgias, back or neck pain, or night sweats. The review of systems is otherwise negative other than for that already noted above, and at least 10 systems have been reviewed. Physical Exam Vital Signs Date Time Temp Pulse Resp B/P (MAP) Pulse Ox O2 Delivery O2 Flow Rate FiO2 11/29/17 20:40 36.8 83 18 114/68 Room Air 11/29/17 20:18 72 16 110/62 96 Room Air 11/29/17 19:00 89 16 109/59 96 Room Air 11/29/17 17:02 36.8 110 20 106/64 97 Room Air The patient is awake, alert and oriented 3, well developed and well nourished, normocephalic and atraumatic, lying in bed and in no acute distress. HEENT--PERRL, EOMI, mucous membranes and oropharynx normal. Neck--supple. No JVD. No bruits. Thyroid normal, trachea midline, no adenopathy. Heart--normal S1 and S2. No murmurs, rubs or gallops. Lungs--clear bilaterally, no respiratory distress, no accessory muscle use. Abdomen--normal bowel sounds and soft. Nontender. Nondistended, no hernias or masses. Extremities--right upper extremity with no cyanosis or clubbing or edema. Left upper extremity extremely tender to touch proximity to elbow, wrist and warm, decreased range of motion. Healing open wound between fourth and fifth fingers at bases. Dermatologic-- as above Neurologic--cranial nerves II through XII grossly intact. Rheumatologic--normal range of motion. Psychiatric--normal affect. Diagnostics Laboratory Results Results Past 24 Hours Test 11/29/17 17:58 Range/Units White Blood Count 10.13 4.8-10.8 K/uL Red Blood Count 4.37 4.2-5.4 M/uL Hemoglobin 13.0 12.0-16.0 g/dL Hematocrit 38.4 37-47 % Mean Corpuscular Volume 87.9 80-100 fL Mean Corpuscular Hemoglobin 29.7 25-34 pg Mean Corpuscular Hemoglobin Concent 33.9 32-36 g/dl Platelet Count 171 130-400 K/uL Mean Platelet Volume 10.3 7.4-10.4 fL Neutrophils (%) (Auto) 69.1 % Lymphocytes (%) (Auto) 22.3 % Monocytes (%) (Auto) 7.2 % Eosinophils (%) (Auto) 0.9 % Basophils (%) (Auto) 0.2 % Neutrophils # (Auto) 7.00 1.4-6.5 K/uL Lymphocytes # (Auto) 2.26 1.2-3.4 K/uL Monocytes # (Auto) 0.73 0.11-0.59 K/uL Eosinophils # (Auto) 0.09 0-0.5 K/uL Basophils # (Auto) 0.02 0-0.2 K/uL RDW Standard Deviation 41.4 36.4-46.3 fL RDW Coefficient of Variation 12.8 11.5-14.5 % Immature Granulocyte % (Auto) 0.3 % Immature Granulocyte # (Auto) 0.03 0.00-0.02 K/uL Erythrocyte Sedimentation Rate 34 0-21 mm/hr Prothrombin Time 9.7 9.0-12.0 SECONDS Prothromb Time International Ratio 0.9 0.9-1.1 Activated Partial Thromboplast Time 30.6 21.0-31.0 SECONDS Partial Thromboplastin Ratio 1.2 Sodium Level 134 136-145 mmol/L Potassium Level 3.5 3.5-5.1 mmol/L Chloride Level 103 98-107 mmol/L Carbon Dioxide Level 26 21-32 mmol/L Anion Gap 5.0 3-11 mmol/L Blood Urea Nitrogen 21 7-18 mg/dl Creatinine 0.74 0.60-1.20 mg/dl Est Creatinine Clear Calc Drug Dose 68.6 ml/min Estimated GFR () 109.5 Estimated GFR (Non- 94.5 BUN/Creatinine Ratio 28.7 10-20 Random Glucose 93 70-99 mg/dl Calcium Level 9.3 8.5-10.1 mg/dl Total Bilirubin 0.9 0.2-1 mg/dl Direct Bilirubin 0.2 0-0.2 mg/dl Aspartate Amino Transf (AST/SGOT) 30 15-37 U/L Alanine Aminotransferase (ALT/SGPT) 46 12-78 U/L Alkaline Phosphatase 104 45-117 U/L C-Reactive Protein 14.40 0-0.29 mg/dl Total Protein 8.2 6.4-8.2 gm/dl Albumin 3.7 3.4-5.0 gm/dl Microbiology Results 11/29/17 Blood Culture, Received Pending 11/29/17 Blood Culture, Received Pending 11/29/17 Gram Stain - Preliminary, Resulted 11/29/17 Wound Culture, Resulted Pending Diagnostic Radiology Patient Name: RALPH VEGA Unit Number: [id number] Dictated: 11/29/171843 Transcribed: 11/29/171843 ARG Printed Date/Time: [~ rep prt dt]/[~ rep prt tm] [~ rep ct labl] - [~ rep ct ivnm] [facility] [place] [address] Dictated: 11/29/171843 Transcribed: 11/29/171843 ARG Printed Date/Time: [~ rep prt dt]/[~ rep prt tm] [~ rep ct labl] - [~ rep ct ivnm] [~ rep ct add3]] L HUMERUS MIN 2 VIEWS ROUTINE CLINICAL HISTORY: Left upper arm pain INFECTION COMPARISON: None. DISCUSSION: No fractures or dislocations are visualized. No radiopaque foreign bodies are visualized. There is no evidence of osteomyelitis. IMPRESSION: Unremarkable conventional radiographic evaluation of the left humerus. Electronically signed by: Rodo Corley M.D. 11/29/2017 6:45 PM Dictated Date/Time: 11/29/2017 6:44 PM The status of this report is Signed. Draft = Not yet reviewed or approved by Radiologist. Signed = Reviewed and approved by Radiologist. <AttendingPhy></AttendingPhy> <FamilyPhy>Matthew Dudley PA-C</FamilyPhy> < PrimaryPhy>Matthew Dudley PA-C</PrimaryPhy> <UnitNumber>[id number]</ UnitNumber> <VisitNumber>[id number]</VisitNumber> <PatientName>RALPH VEGA</PatientName> <DateOfBirth>1965</DateOfBirth> <Location>[facility]</ Location> <ServiceDate>11/29/17</ServiceDate> <MNE>ESINDI</MNE> <OrderingPhy> Ivonne Mallory</OrderingPhy> <OrderingPhyMNE>f rep ord dr greene</ OrderingPhyMNE> <DictatingPhyMNE>f rep dict dr greene</DictatingPhyMNE> <CCListMNE> f rep ct mne</CCListMNE> <AdmittingPhyMNE>f pt admit dr greene</AdmittingPhyMNE> < AttendingPhyMNE>f pt attend dr greene</AttendingPhyMNE> <ConsultingPhyMNE>f pt consult dr greene</ConsultingPhyMNE> <FamilyPhyMNE>f pt fam dr greene</FamilyPhyMNE> <OtherPhyMNE>f pt other dr greene</OtherPhyMNE> < PrimaryPhyMNE>f pt prim care dr greene</PrimaryPhyMNE> <ReferringPhyMNE>f pt referring dr greene</ReferringPhyMNE> Patient Name: RALPH VEGA Unit Number: [id number] Dictated: 11/29/171839 Transcribed: 11/29/171839 ARG Printed Date/Time: [~ rep prt dt]/[~ rep prt tm] [~ rep ct labl] - [~ rep ct ivnm] [facility] [place] [place] [address] Dictated: 11/29/171839 Transcribed: 11/29/171839 ARG Printed Date/Time: [~ rep prt dt]/[~ rep prt tm] [~ rep ct labl] - [~ rep ct ivnm] [~ rep ct add3]] L HAND MIN 3 VIEWS ROUTINE CLINICAL HISTORY: Cellulitis. Possible osteomyelitis. Redness. COMPARISON: None. DISCUSSION: No fractures or dislocations are visualized. There are no radiopaque foreign bodies. No air is visualized in the soft tissues. There are minor arthritic changes. There are no conventional radiographic findings to indicate acute osteomyelitis IMPRESSION: 1. No evidence of fracture 2. No evidence of osteomyelitis Electronically signed by: Rodo Corley M.D. 11/29/2017 6:41 PM Dictated Date/Time: 11/29/2017 6:40 PM The status of this report is Signed. Draft = Not yet reviewed or approved by Radiologist. Signed = Reviewed and approved by Radiologist. <AttendingPhy></AttendingPhy> <FamilyPhy>Matthew Dudley PA-C</FamilyPhy> < PrimaryPhy>Matthew Dudley PA-C</PrimaryPhy> <UnitNumber>[id number]</ UnitNumber> <VisitNumber>[id number]</VisitNumber> <PatientName>GARY RALPH Tabatha</PatientName> <DateOfBirth>1965</DateOfBirth> <Location>[facility]</ Location> <ServiceDate>11/29/17</ServiceDate> <MNE>ESINDI</MNE> <OrderingPhy> Ivonne Mallory JOB PLACEMENT COUNSELOR</OrderingPhy> <OrderingPhyMNE>f rep ord dr greene</ OrderingPhyMNE> <DictatingPhyMNE>f rep dict dr greene</DictatingPhyMNE> <CCListMNE> f rep ct jc</CCListMNE> <AdmittingPhyMNE>f pt admit dr greene</AdmittingPhyMNE> < AttendingPhyMNE>f pt attend dr greene</AttendingPhyMNE> <ConsultingPhyMNE>f pt consult dr greene</ConsultingPhyMNE> <FamilyPhyMNE>f pt fam dr greene</FamilyPhyMNE> <OtherPhyMNE>f pt other dr greene</OtherPhyMNE> < PrimaryPhyMNE>f pt prim care dr greene</PrimaryPhyMNE> <ReferringPhyMNE>f pt referring dr greene</ReferringPhyMNE> L FOREARM 2 VIEWS ROUTINE CLINICAL HISTORY: Left forearm pain. Infection. EVALUATE FOR OSTEOMYELITIS COMPARISON: None. DISCUSSION: No fractures or dislocations are visualized. There are no radiopaque foreign bodies. There is no conventional radiographic evidence of osteomyelitis. IMPRESSION: 1. No evidence of fracture 2. No evidence of osteomyelitis Electronically signed by: Rodo Corley M.D. 11/29/2017 6:46 PM Dictated Date/Time: 11/29/2017 6:45 PM The status of this report is Signed. Draft = Not yet reviewed or approved by Radiologist. Signed = Reviewed and approved by Radiologist. <AttendingPhy></AttendingPhy> <FamilyPhy>Matthew Dudley PA-C</FamilyPhy> < PrimaryPhy>Matthew Dudley PA-C</PrimaryPhy> <UnitNumber>[id number]</ UnitNumber> <VisitNumber>[id number]</VisitNumber> <PatientName>GARYRALPH</PatientName> <DateOfBirth>1965</DateOfBirth> <Location>[facility]</ Location> <ServiceDate>11/29/17</ServiceDate> <MNE>ESINDI</MNE> <OrderingPhy> Ivonne Mallory</OrderingPhy> <OrderingPhyMNE>f rep ord dr greene</ OrderingPhyMNE> <DictatingPhyMNE>f Impression Assessment and Plan Left upper extremity cellulitis/tenosynovitis/immunocompromised patient-- Admit to medical surgical floor. N.p.o. after midnight Vancomycin IV, Zosyn IV. Orthopedic consult to see in the a.m. Hold Mobic. Place on Toradol 15 mg IV every 4 hours as needed. Lupus-- Continue CellCept, duloxetine and tizanidine. GERD/irritable bowel syndrome-- Patient will bring in her own Linzess. Change omeprazole to 40 mg at bedtime Seasonal allergy-- Cetirizine 10 mg daily. Level of Care Med/Surg Advanced Directives Existing Advance Directive: No Existing Living Will: No Existing Power of Treating Plant Pumper: No Resuscitation Status FULL RESUSCITATION VTE Prophylaxis VTE Risk Assessment Done? Y/N: Yes Risk Level: Low Given or contraindicated: SCD's Social Service Consult None Apply
[2017-11-29] MEDS: PIPERACILL/TAZOBAC IV 3.375 GM in DEXTROSE 5% 100ML 100 ML IV SCH (22:26)
[2017-11-29 23:18] VITALS: BP 77/41; PULSE 62; TEMP 36.6; O2SAT 97
[2017-11-29 23:31] VITALS: BP 81/49; PULSE 75
[2017-11-29 23:44] VITALS: BP 78/48; PULSE 64
[2017-11-30] MEDS ORDERED: INFLUENZA VIRUS QUAD VACCINE 0.5 ML SYR IM. ONE (01:00)
[2017-11-30] MEDS ORDERED: INFLUENZA ADMINISTRATION CHARGE ONE (01:00)
[2017-11-30] MEDS: VANCOMYCIN INJ 750 MG in SODIUM CHLORIDE 0.9% 250ML 250 ML IV SCH ×2 (03:30→17:39)
[2017-11-30] MEDS: PIPERACILL/TAZOBAC IV 3.375 GM in DEXTROSE 5% 100ML 100 ML IV SCH ×3 (05:37→21:14)
[2017-11-30] MEDS: KETOROLAC TROMETHAMINE 15 MG/ML VIAL IV PRN ×3 (05:45→16:27)
[2017-11-30 07:13] VITALS: BP 112/72; PULSE 75; TEMP 36.6; O2SAT 99
[2017-11-30] MEDS: LINZESS~ORDER AWAITING ACTION SCH ×2 (08:00)
[2017-11-30] MEDS: LACTOBACILLUS ACIDOPHILUS (FLORANEX) TAB PO SCH ×4 (09:13→20:00)
[2017-11-30] MEDS: MYCOPHENOLATE MOFETIL 250 MG CAP (CELLCEPT) PO SCH ×2 (09:14→20:00)
[2017-11-30] MEDS: CETIRIZINE HCL 10 MG TAB PO SCH (09:14)
[2017-11-30] MEDS: VITAMIN B COMPLEX TAB PO SCH (09:15)
[2017-11-30] MEDS: ASCORBIC ACID 500 MG TAB PO SCH (09:15)
[2017-11-30] MEDS: CHOLECALCIFEROL 1000 INTER.UNIT TAB PO SCH (09:16)
[2017-11-30 10:19] LABS: CREATININE 0.61 mg/dl (0.60-1.20)
[2017-11-30] MEDS: D5NSS + 20MEQ KCL 1,000 ML IV SCH ×2 (11:41→21:14)
--- NOTE | 2017-11-30 12:57 | Orthopedic Consultation ---
Orthopedic Consultation Date of Consultation: Nov 30, 2017. Attending Physician: Galen Cai MD Reason for Consultation: Left hand infection History of Present Illness The patient is a 52-year-old female who has developed redness and swelling after a dog nail scratch to her left hand 6 days ago. She did not really have any pain or erythema until about 3 days after the scratch from the nail. She states that the swelling and redness initially began in her hand. She initially went to [place] emergency room where she was given intramuscular injection of ceftriaxone and sent home with Keflex. This was on Saturday. On Saturday she had increasing pain and erythema. She is evaluated by her parents care physician who referred her to the emergency room. She has been admitted for treatment for IV antibiotics and further evaluation. She is on CellCept as a treatment for lupus. Past Medical/Surgical History Medical Problems: (1) Constipation Status: Acute Social History Smoking Status: Current Every Day Smoker Smokeless Tobacco Use: No Alcohol Use: none Drug Use: none Marital Status: single Housing Status: other Occupation Status: unemployed Allergies Coded Allergies: Aspirin (Verified Allergy, Unknown, NOSE BLEEDS, 02/11/17) Sulfamethoxazole w/Trimethoprim (Verified Allergy, Unknown, HIVES, 02/11/17) Home Medications Scheduled Ascorbic Acid (Vitamin C), 500 MG PO QAM B-Complex Vitamins (Vitamin B Complex), 1 TAB PO QAM Cetirizine Hcl (Zyrtec), 10 MG PO QAM Cholecalciferol (Vitamin D), 1,000 INTER.UNIT PO QAM Duloxetine HCl (Cymbalta), 30 MG PO DAILY Duloxetine Hcl (Cymbalta), 60 MG PO HS Linaclotide (Linzess), 72 MCG PO QAM Melatonin (Melatonin Maximum Strengt), 5 MG PO HS Meloxicam (Meloxicam), 15 MG PO HS Mycophenolate Mofetil (Cellcept), 250 MG PO BID Omeprazole (Prilosec), 20 MG PO HS Tizanidine (Zanaflex), 4 MG PO BID Current Inpatient Medications Current Inpatient Medications Medications (Trade) Dose Ordered Sig/Arnold Route Start Time Stop Time Status Last Admin Dose Admin Acetaminophen (Tylenol Tab) 650 mg Q4H PRN PO 11/29/17 19:30 12/29/17 19:29 Al Hydrox/Mg Hydrox/Simethicone (Maalox Max Susp) 15 ml Q4H PRN PO 11/29/17 19:30 12/29/17 19:29 Magnesium Hydroxide (Milk Of Magnesia Susp) 30 ml Q6H PRN PO 11/29/17 19:30 12/29/17 19:29 Polyethylene (Miralax Powder Packet) 17 gm DAILY PRN PO 11/29/17 19:30 12/29/17 19:29 Zolpidem Tartrate (Ambien Tab) 5 mg HSZ PRN PO 11/29/17 19:30 12/29/17 19:29 Ascorbic Acid (Vitamin C Tab) 500 mg QAM PO 11/30/17 09:00 12/30/17 08:59 11/30/17 09:15 500 MG Cetirizine HCl (zyrTEC TAB) 10 mg QAM PO 11/30/17 09:00 12/30/17 08:59 11/30/17 09:14 10 MG Cholecalciferol (Vitamin D Tab) 1,000 inter.unit QAM PO 11/30/17 09:00 12/30/17 08:59 11/30/17 09:16 1,000 INTER.UNIT Duloxetine HCl (Cymbalta Cap) 90 mg HS PO 11/29/17 21:00 12/29/17 20:59 11/29/17 21:38 90 MG Mycophenolate Mofetil (Cellcept Cap) 250 mg BID PO 11/29/17 21:00 12/29/17 20:59 11/30/17 09:14 250 MG Vitamin B Complex (Vitamin B Complex) 1 tab QAM PO 11/30/17 09:00 12/30/17 08:59 11/30/17 09:15 1 TAB Miscellaneous Information (Order Awaiting Action) 1 ea QS N/A 11/30/17 00:00 12/30/17 00:00 Pantoprazole Sodium (Protonix Tab) 40 mg HS PO 11/29/17 21:00 12/29/17 20:59 11/29/17 21:38 40 MG Tizanidine HCl (Zanaflex Tab) 4 mg BID PO 11/29/17 21:00 12/29/17 20:59 11/30/17 09:14 4 MG Vancomycin HCl 750 mg/Sodium Chloride 265 ml @ 125 mls/hr Q14H IV 11/30/17 04:00 12/09/17 17:59 11/30/17 03:30 125 MLS/HR Miscellaneous Information (Consult) 1 ea UD PRN N/A 11/29/17 19:45 12/29/17 19:44 Piperacillin Sod/ Tazobactam Sod 3.375 gm/Dextrose 115 ml @ 28.75 mls/ hr Q8H IV 11/29/17 22:00 12/09/17 21:59 11/30/17 05:37 28.75 MLS/HR Miscellaneous Information (Consult) 1 ea UD PRN N/A 11/29/17 19:45 12/29/17 19:44 Ketorolac Tromethamine (Toradol Inj) 15 mg Q4H PRN IV 11/29/17 19:45 12/04/17 19:44 11/30/17 11:41 15 MG Lactobacillus Acidophilus (Floranex Tab) 4 tab QIDM PO 11/30/17 08:30 12/30/17 08:29 11/30/17 11:49 4 TAB Potassium Chloride/Dextrose/ Sod Cl 1,000 ml @ 100 mls/hr Q10H IV 11/30/17 11:30 12/30/17 10:44 11/30/17 11:41 100 MLS/HR Physical Exam Date Time Temp Pulse Resp B/P (MAP) Pulse Ox O2 Delivery O2 Flow Rate FiO2 11/30/17 07:40 Room Air 11/30/17 07:13 36.6 75 18 112/72 (85) 99 Room Air 11/29/17 23:44 64 78/48 (58) 11/29/17 23:31 75 81/49 (60) 11/29/17 23:25 Room Air 11/29/17 23:18 36.6 62 18 77/41 (53) 97 Room Air 11/29/17 20:40 36.8 83 18 114/68 Room Air 11/29/17 20:18 72 16 110/62 96 Room Air 11/29/17 19:00 89 16 109/59 96 Room Air 11/29/17 17:02 36.8 110 20 106/64 97 Room Air Left upper extremity: There is an abrasion over the dorsal aspect of the fourth webspace. There is erythema along the ulnar border of the hand. No significant erythema along the volar aspect along the flexor tendon course of the fifth digit. There is some erythema on the volar aspect of the distal portion of the forearm just distal to the flexor crease of the wrist. She is tender to palpation in this region. She only has minor tenderness to palpation along the flexor tendon course of the hand and over the erythematous portion of the ulnar border of the hand. She does not have a lot of pain with passive flexion-extension of the finger. Palpation of the wrist joint does not elicit a lot of pain. Passive dorsiflexion of the wrist generates a fair amount of pain at terminal flexion that she locates to the region where there is some erythema. There is some mild erythema going up the rest the arm shows place a small erythema up into the ulnar side of the distal aspect of the humerus. She was normal pulses. Light touch sensation and motor function is intact. She is able to fully extend all digits she can achieve mainly full flexion she short about 10 or 20 of full flexion. She states that she was unable to do that at all prior to initiation of the IV antibiotics. She states that the pain and erythema and swelling have significantly improved since she is been started on the IV antibiotics. General Appearance: WD/WN Head: normocephalic Eyes: normal inspection ENT: normal ENT inspection Neck: supple Respiratory/Chest: chest non-tender Cardiovascular: regular rate, rhythm Laboratory Results Last 24 Hours Test 11/29/17 17:58 11/30/17 09:04 White Blood Count 10.13 K/uL Red Blood Count 4.37 M/uL Hemoglobin 13.0 g/dL Hematocrit 38.4 % Mean Corpuscular Volume 87.9 fL Mean Corpuscular Hemoglobin 29.7 pg Mean Corpuscular Hemoglobin Concent 33.9 g/dl Platelet Count 171 K/uL Mean Platelet Volume 10.3 fL Neutrophils (%) (Auto) 69.1 % Lymphocytes (%) (Auto) 22.3 % Monocytes (%) (Auto) 7.2 % Eosinophils (%) (Auto) 0.9 % Basophils (%) (Auto) 0.2 % Neutrophils # (Auto) 7.00 K/uL Lymphocytes # (Auto) 2.26 K/uL Monocytes # (Auto) 0.73 K/uL Eosinophils # (Auto) 0.09 K/uL Basophils # (Auto) 0.02 K/uL RDW Standard Deviation 41.4 fL RDW Coefficient of Variation 12.8 % Immature Granulocyte % (Auto) 0.3 % Immature Granulocyte # (Auto) 0.03 K/uL Erythrocyte Sedimentation Rate 34 mm/hr Prothrombin Time 9.7 SECONDS Prothromb Time International Ratio 0.9 Activated Partial Thromboplast Time 30.6 SECONDS Partial Thromboplastin Ratio 1.2 Sodium Level 134 mmol/L Potassium Level 3.5 mmol/L Chloride Level 103 mmol/L Carbon Dioxide Level 26 mmol/L Anion Gap 5.0 mmol/L Blood Urea Nitrogen 21 mg/dl Creatinine 0.74 mg/dl 0.61 mg/dl Est Creatinine Clear Calc Drug Dose 68.6 ml/min 83.2 ml/min Estimated GFR () 109.5 122.5 Estimated GFR (Non- 94.5 105.7 BUN/Creatinine Ratio 28.7 Random Glucose 93 mg/dl Calcium Level 9.3 mg/dl Total Bilirubin 0.9 mg/dl Direct Bilirubin 0.2 mg/dl Aspartate Amino Transf (AST/SGOT) 30 U/L Alanine Aminotransferase (ALT/SGPT) 46 U/L Alkaline Phosphatase 104 U/L C-Reactive Protein 14.40 mg/dl Total Protein 8.2 gm/dl Albumin 3.7 gm/dl Assessment & Plan Left hand infection, cellulitis, questionable flexor tenosynovitis She has been responding pretty well to the IV antibiotics. The region in her hand has improved and the motion or has significantly improved. She still has erythema over the ulnar aspect of the hand. There is also the region of the volar aspect of the wrist that is erythematous and tender to palpation. No tenderness of the wrist joint itself. Passive motion elicits pain in the volar region of the wrist. She has an MRI of both the hand and wrist ordered. We will await the results of this. And see if there is significant fluid in the flexor tendons or if there is any fluid within the region of the hand or wrist that might need surgical intervention. We will keep her nothing by mouth for now.
[2017-11-30] MEDS ORDERED: LIDOCAINE HCL 2% 2 ML VIAL (20MG/ML) ONE ×2 (14:12)
[2017-11-30] MEDS ORDERED: EpHEDrine SULFATE INJ 50 MG/ML AMP ONE (14:12)
[2017-11-30] MEDS ORDERED: SODIUM CHLORIDE 0.9% INJ 10 ML VIAL ONE (14:12)
[2017-11-30] MEDS ORDERED: PROPOFOL IV EMULSION 10 MG/ML 20 ML VIAL IV ONE (14:12)
[2017-11-30 16:21] VITALS: BP 116/70; PULSE 66; TEMP 36.6; O2SAT 99
--- NOTE | 2017-11-30 16:40 | DIAGNOSTIC IMAGING REPORT ---
MRI THE LEFT HAND WITHOUT A WITH GADOLINIUM CLINICAL HISTORY: cellulitis dog bite. COMPARISON STUDY: Conventional radiographic study dated 11/29/2017 FINDINGS: Imaging was performed before and after the administration of 5.5 cc of intravenous Gadavist. There are no areas of marrow edema to indicate osteomyelitis. There are no fluid collections to indicate an abscess. There are no pathologically enhancing masses. No tendon tears are visualized. There is superficial and deep edema within the volar aspect of the wrist. IMPRESSION: 1. Superficial and deep edema within the volar aspect of the wrist 2. No evidence of abscess 3. No evidence of osteomyelitis Electronically signed by: Rodo Corley M.D. 11/30/2017 4:39 PM Dictated Date/Time: 11/30/2017 4:37 PM
--- NOTE | 2017-11-30 16:43 | DIAGNOSTIC IMAGING REPORT ---
MRI OF THE LEFT WRIST WITHOUT A WITH GADOLINIUM CLINICAL HISTORY: cellulitis/dog bite left hand; impaired function of digits 2/3 COMPARISON STUDY: Conventional radiographic study of the hand dated 11/29/2017 FINDINGS: Imaging was performed before and after the administration of 5.5 cc of intravenous Gadavist There are no areas of marrow edema to indicate osteomyelitis. There are no fluid collections to indicate an abscess. There is superficial and deep soft tissue edema within the volar aspect of the wrist. There are no pathologically enhancing masses. There is post gadolinium bolus are tendon sheath enhancement consistent with an inflammatory process. IMPRESSION: 1. No evidence of osteomyelitis 2. No evidence of abscess 3. Inflammatory changes within the superficial and deep soft tissues of the volar wrist. Electronically signed by: Rodo Corley M.D. 11/30/2017 4:42 PM Dictated Date/Time: 11/30/2017 4:40 PM
--- NOTE | 2017-11-30 17:53 | Progress Note ---
Subjective Date of Service: Nov 30, 2017. Subjective Pt evaluation today including: conversation w/ patient, physical exam, chart review, lab review, review of studies (x-rays of left arm/hand; MRIs of left hand/wrist), conversation w/ csm consultant (ernestina PACK), review of inpatient medication list Pain: left hand, wrist, and arm - improved from yesterday PO Intake: npo for possible procedure, if deemed necessary Voiding: no voiding problems no fever/chills overnight overall the hand/wrist/arm on left feel better, but she still has hard time flexing digits 2/3 on left swelling slightly better in the hand hurts to actively flex/extend the left wrist can move the elbow and left shoulder w/o difficulty Problem List Medical Problems: (1) Constipation Status: Acute Review of Systems Constitutional: No fever, No chills Respiratory: No shortness of breath Cardiac: No chest pain Abdomen: No pain Objective Vital Signs Date Time Temp Pulse Resp B/P (MAP) Pulse Ox O2 Delivery O2 Flow Rate FiO2 11/30/17 16:30 Room Air 11/30/17 16:21 36.6 66 18 116/70 (85) 99 Room Air 11/30/17 07:40 Room Air 11/30/17 07:13 36.6 75 18 112/72 (85) 99 Room Air 11/29/17 23:44 64 78/48 (58) 11/29/17 23:31 75 81/49 (60) 11/29/17 23:25 Room Air 11/29/17 23:18 36.6 62 18 77/41 (53) 97 Room Air 11/29/17 20:40 36.8 83 18 114/68 Room Air 11/29/17 20:18 72 16 110/62 96 Room Air 11/29/17 19:00 89 16 109/59 96 Room Air Physical Exam General Appearance: no apparent distress ENT: pharynx normal Neck: no JVD Respiratory/Chest: lungs clear, no respiratory distress, no accessory muscle use Cardiovascular: regular rate, rhythm, no gallop, no murmur Abdomen: normal bowel sounds, non tender, soft, no organomegaly Extremities: no pedal edema, + pertinent finding (unable to fully flex digits 2 & 3 of the left hand; other fingers are intact w/ respect to flexion; painful to flex/extend the left wrist ) Neurologic/Psychiatric: alert, oriented x 3 Skin: + pertinent finding (dog bite/minor wound in the webspace between digits 4/5 on left hand, dorsal aspect; no drainage; scant erythema; mild erythema noted over hypothenar eminence of palmar aspect, left hand; gross swelling of entire left hand extending to the wrist; mild erythema tracking up the medial, volar aspect of the forearm stopping prior to the elbow; mild swelling of the forearm) Laboratory Results Last 24 Hours Test 11/29/17 17:58 11/30/17 09:04 White Blood Count 10.13 K/uL Red Blood Count 4.37 M/uL Hemoglobin 13.0 g/dL Hematocrit 38.4 % Mean Corpuscular Volume 87.9 fL Mean Corpuscular Hemoglobin 29.7 pg Mean Corpuscular Hemoglobin Concent 33.9 g/dl Platelet Count 171 K/uL Mean Platelet Volume 10.3 fL Neutrophils (%) (Auto) 69.1 % Lymphocytes (%) (Auto) 22.3 % Monocytes (%) (Auto) 7.2 % Eosinophils (%) (Auto) 0.9 % Basophils (%) (Auto) 0.2 % Neutrophils # (Auto) 7.00 K/uL Lymphocytes # (Auto) 2.26 K/uL Monocytes # (Auto) 0.73 K/uL Eosinophils # (Auto) 0.09 K/uL Basophils # (Auto) 0.02 K/uL RDW Standard Deviation 41.4 fL RDW Coefficient of Variation 12.8 % Immature Granulocyte % (Auto) 0.3 % Immature Granulocyte # (Auto) 0.03 K/uL Erythrocyte Sedimentation Rate 34 mm/hr Prothrombin Time 9.7 SECONDS Prothromb Time International Ratio 0.9 Activated Partial Thromboplast Time 30.6 SECONDS Partial Thromboplastin Ratio 1.2 Sodium Level 134 mmol/L Potassium Level 3.5 mmol/L Chloride Level 103 mmol/L Carbon Dioxide Level 26 mmol/L Anion Gap 5.0 mmol/L Blood Urea Nitrogen 21 mg/dl Creatinine 0.74 mg/dl 0.61 mg/dl Est Creatinine Clear Calc Drug Dose 68.6 ml/min 83.2 ml/min Estimated GFR () 109.5 122.5 Estimated GFR (Non- 94.5 105.7 BUN/Creatinine Ratio 28.7 Random Glucose 93 mg/dl Calcium Level 9.3 mg/dl Total Bilirubin 0.9 mg/dl Direct Bilirubin 0.2 mg/dl Aspartate Amino Transf (AST/SGOT) 30 U/L Alanine Aminotransferase (ALT/SGPT) 46 U/L Alkaline Phosphatase 104 U/L C-Reactive Protein 14.40 mg/dl Total Protein 8.2 gm/dl Albumin 3.7 gm/dl Assessment and Plan 52yo female - 1. left hand dog bite with resulting cellulitis of hand and forearm - MRI of left hand & wrist failed to show septic flexor tenosynovitis, abscess, or osteomyelitis. Orthopedic csm consultant appreciated - no surgical intervention at this time. Cont broad-spectrum IV antibiotics. Follow wound cx & blood cx's. Pain control. 2. SLE - cellcept; controlled. 3. DVT proph - since no surgery planned today start lovenox 40mg daily. 4. FEN - IVF - D5NS with KCL at 100cc/hr. Repeat BMP am. Continued [facility] stay due to: multiple IV medications needed
[2017-11-30] MEDS ORDERED: ENOXAPARIN 40 MG/0.4 ML SYR SQ ONE (18:30)
--- NOTE | 2017-11-30 19:03 | PROGRESS NOTE ---
DATE: 11/30/2017 SUBJECTIVE: Glenny is seen at the bedside today. She does have some interval improvement with antibiotics. She has complaints of pain in the left lower extremity, mostly in the volar aspect of the wrist. She has pain worse with wrist flexion and extension. OBJECTIVE: Left hand exam does show an open wound with eschar formation over the dorsal aspect of the small finger proximal phalanx. There is no gross purulent drainage. She has negative Kanavel signs in all of her fingers, and she has no significant erythema in the fingers or the digits. Left wrist exam shows mild pain with flexion and extension of the wrist. She has no evidence of acute septic joint. She has no palpable effusion in the wrist. She does have patchy erythema extending up to above the elbow by approximately 2 inches. Review of MRI of the upper extremity does not show evidence of abscess, does show edema within the volar wrist. No evidence of osteomyelitis, no evidence of fluid collection. ASSESSMENT: Cellulitis, left hand and wrist status post dog bite. PLAN: At this point in time, I feel this likely represents cellulitis. I do not see definitive evidence of abscess either in Parona's space or in the flexor tendons. I do not see convincing evidence of septic flexor tenosynovitis at this point in time. At this point, we will monitor. No surgical indications at this point in time. I would hold patient's immunosuppressive medications for now. We will continue to follow.
[2017-11-30] MEDS: PANTOprazole SOD 40 MG TAB PO SCH (20:01)
[2017-11-30] MEDS: DULOXETINE (CYMBALTA) 30 MG CAP PO SCH (20:01)
[2017-11-30] MEDS ORDERED: NURSING VERBAL MED ORDER ONE (21:30)
[2017-11-30 23:00] VITALS: BP 111/69; PULSE 59; TEMP 36.6; O2SAT 99
[2017-12-01] MEDS: PIPERACILL/TAZOBAC IV 3.375 GM in DEXTROSE 5% 100ML 100 ML IV SCH ×2 (05:45→14:27)
[2017-12-01 07:23] VITALS: BP 108/63; PULSE 76; TEMP 36.9; O2SAT 99
[2017-12-01 07:58] LABS: BASO % 0.6 %; BASO ABS # 0.03 K/uL (0-0.2); EOS % 3.4 %; EOS ABS # 0.16 K/uL (0-0.5); HEMATOCRIT 32.5 % (37-47); HEMOGLOBIN 10.9 g/dL (12.0-16.0); IG# 0.01 K/uL (0.00-0.02); LYMPH % 47.2 %; LYMPH ABS # 2.19 K/uL (1.2-3.4); MEAN CELL VOLUME 88.3 fL (80-100); MEAN CORPUSCULAR HEMOGLOBIN 29.6 pg (25-34); MEAN CORPUSCULAR HGB CONC 33.5 g/dl (32-36); MEAN PLATELET VOLUME 10.3 fL (7.4-10.4); MONO % 9.1 %; MONO ABS # 0.42 K/uL (0.11-0.59); NEUT % 39.5 %; NEUT ABS # 1.83 K/uL (1.4-6.5); PLATELET COUNT 156 K/uL (130-400); RED CELL DISTRIBUTION WIDTH CV 12.9 % (11.5-14.5); RED CELL DISTRIBUTION WIDTH SD 41.7 fL (36.4-46.3); WHITE BLOOD COUNT 4.64 K/uL (4.8-10.8)
[2017-12-01] MEDS: VANCOMYCIN INJ 750 MG in SODIUM CHLORIDE 0.9% 250ML 250 ML IV SCH (08:03)
[2017-12-01] MEDS: MYCOPHENOLATE MOFETIL 250 MG CAP (CELLCEPT) PO SCH (08:46)
[2017-12-01] MEDS: ASCORBIC ACID 500 MG TAB PO SCH (08:46)
[2017-12-01] MEDS: CHOLECALCIFEROL 1000 INTER.UNIT TAB PO SCH (08:47)
[2017-12-01] MEDS: CETIRIZINE HCL 10 MG TAB PO SCH (08:47)
[2017-12-01] MEDS: LACTOBACILLUS ACIDOPHILUS (FLORANEX) TAB PO SCH ×3 (08:47→17:09)
[2017-12-01] MEDS: VITAMIN B COMPLEX TAB PO SCH (08:47)
[2017-12-01 08:54] LABS: CALCIUM 8.6 mg/dl (8.5-10.1); CREATININE 0.6 mg/dl (0.60-1.20)
[2017-12-01] MEDS ORDERED: LINACLOTIDE 72 MCG PO SCH (09:00)
--- NOTE | 2017-12-01 09:13 | Orthopedic Progress Note ---
Orthopedic Progress Note Date of Service Dec 01, 2017. Subjective Reports: feeling well, pain controlled w PO medications, Denies: complaints Additional Notes: States the left hand and wrist are significantly better. No complaints of the LUE. Objective N/V intact, capillary refill less than 2 sec., A&O x3 Left hand: healing puncture wound at the dorsal aspect of the 4th interspace near the MCP joints. No erythema. No fluctuance. Little to no erythema noted on the volar or dorsal aspect of the hand, wrist, or forearm. Full ROM of the fingers and wrist LUE. Date Time Temp Pulse Resp B/P (MAP) Pulse Ox O2 Delivery O2 Flow Rate FiO2 12/01/17 07:23 36.9 76 18 108/63 (78) 99 Room Air 12/01/17 00:00 Room Air 11/30/17 23:00 36.6 59 16 111/69 (83) 99 Room Air 11/30/17 16:30 Room Air 11/30/17 16:21 36.6 66 18 116/70 (85) 99 Room Air Laboratory Results 24 Hours: Test 12/01/17 07:36 White Blood Count 4.64 K/uL Red Blood Count 3.68 M/uL Hemoglobin 10.9 g/dL Hematocrit 32.5 % Mean Corpuscular Volume 88.3 fL Mean Corpuscular Hemoglobin 29.6 pg Mean Corpuscular Hemoglobin Concent 33.5 g/dl Platelet Count 156 K/uL Mean Platelet Volume 10.3 fL Neutrophils (%) (Auto) 39.5 % Lymphocytes (%) (Auto) 47.2 % Monocytes (%) (Auto) 9.1 % Eosinophils (%) (Auto) 3.4 % Basophils (%) (Auto) 0.6 % Neutrophils # (Auto) 1.83 K/uL Lymphocytes # (Auto) 2.19 K/uL Monocytes # (Auto) 0.42 K/uL Eosinophils # (Auto) 0.16 K/uL Basophils # (Auto) 0.03 K/uL Assessment & Plan Assessment: LUE cellulitis secondary to dog bite. Plan: MRI shows no fluid collection. Exam is improving greatly with IV antibiotics. No surgical intervention at this time. Ortho to sign off. Patient may follow up with us on a prn basis.
[2017-12-01] MEDS ORDERED: ENOXAPARIN 40 MG/0.4 ML SYR SQ SCH (10:00)
[2017-12-01 14:37] VITALS: BP 108/63; PULSE 76; TEMP 36.9; O2SAT 99
[2017-12-01] MEDS ORDERED: DOXYCYCLINE HYCLATE 100 MG CAP PO SCH (15:00)
[2017-12-01 15:03] VITALS: BP 123/67; PULSE 63; TEMP 36.9; O2SAT 97
[2017-12-01] MEDS ORDERED: VANCOMYCIN INJ 1,250 MG in SODIUM CHLORIDE 0.9% 250ML 250 ML IV SCH (16:00)
[2017-12-01] MEDS ORDERED: VANCOMYCIN INJ 750 MG in SODIUM CHLORIDE 0.9% 250ML 250 ML IV SCH (16:00)
--- NOTE | 2017-12-01 16:07 | Pharmacy Progress Note ---
Pharmacy Abx Dose Short Note Date of Service Dec 01, 2017. Assessment & Plan Assessment 52 year old female receiving Vancomycin and Zosyn for treatment of cellulitis from dog bite. Doxycycline PO added today. Day # 3 of antimicrobial therapy. * Abscess culture grew coag neg staph * Blood cultures have NGTD * Renal function stable Item Value Date Time Vancomycin Level Trough 7.7 mcg/ml 12/01/17 0736 Plan Vancomycin * Trough level of 7.7 mcg/mL is subtherapeutic. * Change to 750 mg IV every 8 hours * Goal trough level for cellulitis: ~15 mcg/mL * Trough or random level ordered for: 12/02@1530 Pharmacy will continue to follow and will adjust dose/frequency as necessary. Thank you.
[2017-12-01] MEDS ORDERED: DXY100 PO (17:06)
[2017-12-01] MEDS ORDERED: LCTX PO (17:06)
[2017-12-01] MEDS ORDERED: AMOX875T PO (17:06)
--- NOTE | 2017-12-01 17:19 | Discharge Instructions ---
Discharge Instructions Date of Service Dec 01, 2017. Admission Reason for Admission: Left Arm Cellulitis due to left hand dog bite Discharge Discharge Diagnosis / Problem: Left hand and arm cellulitis - improving Discharge Goals Goal(s): Learn about illness, Diagnostic testing, Therapeutic intervention Activity Recommendations Activity Limitations: as noted below Would avoid heavy lifting with the left arm until all pain and discomfort is gone. Would lift no more than 20 pounds. . Instructions / Follow-Up Instructions / Follow-Up From Dr. Cai - You were treated for cellulitis (skin infection) of your left hand and left arm due to a recent dog bite. You responded very nicely with IV antibiotics. Your blood cultures remained negative during your stay (this means that you do NOT have bacteria in your bloodstream). Orthopedics evaluated you and based on your MRI test results you did not need surgery as there was no infection of the bone, tendons, or joints. There was NO drainable fluid collection/abscess either under the skin. Please take the following - 1. augmentin (amoxicillin-clavulanate) 875mg twice a day for 10 days. Start this TOMORROW AM on 12/02/17. 2. doxycycline 100mg twice a day for 10 days. Start this TOMORROW AM on . 3. lactinex (probiotics) 3 tabs three times a day for 10 days. These may help prevent diarrhea from #1 and #2. Also start these tomorrow. The doxycycline can cause a skin rash if you go out in the sun while taking it. If you do go out in the sun over the next 10 days be sure to use sunscreen and cover up. The doxycycline can sometimes cause heartburn as well. You likely can return to work the middle of this week (Saturday). Ideally the original dog bite location on the left hand should be well-healed and without any open area. You should also be able to perform your job duties without significant pain/ discomfort. Return to [facility] if - * you develop fever over 100.4 degrees * the dog bite starts to drain pus * the redness and swelling of the left hand/arm comes back * you are unable to move your fingers, wrist, or arm * any other concerns Follow-up - Please see your family doctor THIS 12/03/17, to recheck the arm/hand prior to going back to work. You do not need to follow-up with Dr. Lucia, the orthopedic surgeon, unless your symptoms return. I have included his office address and phone number just in case. Current Hospital Diet Patient's current hospital diet: Low Fiber Diet Discharge Diet Recommended Diet: Low Fiber Diet Procedures Procedures Performed: MRI of left hand and wrist - no evidence of abscess, fluid collection, bone infection, or tendon infection. Pending Studies Studies pending at discharge: yes List of pending studies: blood cultures, but thus far negative Work Instructions Return To Work: 3 days Lifting Limitations: no more than 20 pounds (if left arm is still uncomfortable /painful) Additional Instructions: Ms. Silva was hospitalized at [facility] from 11/29/17 to 12/01/17. She likely can return to work on 12/04/17, pending release from her primary care doctor. Medical Emergencies . Who to Call and When: Medical Emergencies: If at any time you feel your situation is an emergency, please call 911 immediately. . Non-Emergent Contact Non-Emergency issues call your: Primary Care Provider Call Non-Emergent contact if: temperature is above 100.5, your pain is not controlled, your pain is worsening, your pain is unusual for you, your pain is concerning you, wound has increased drainage, wound has increased redness, wound has increased pain, you have any medication questions . . "Provider Documentation" section prepared by Galen Cai. . VTE Core Measure Inpt VTE Proph given/why not?: Enoxaparin (Lovenox)SQ, SCD's
--- NOTE | 2017-12-01 18:48 | Discharge Summary ---
Discharge Summary Date of Service Dec 01, 2017. Discharge Summary Admission Date: Nov 29, 2017 at 19:20 Discharge Date: Dec 01, 2017 Discharge Disposition: Home Principal Diagnosis: left hand/arm cellulitis 2nd to dog bite Problems/Secondary Diagnoses: SLE Immunizations: Have You Had Influenza Vaccine: Unknown History of Tetanus Vaccine?: Yes History of Pneumococcal: No History of Hepatitis B Vaccine: Unknown Procedures: 1. MRI left hand - IMPRESSION: 1. Superficial and deep edema within the volar aspect of the wrist 2. No evidence of abscess 3. No evidence of osteomyelitis 2. MRI left wrist - IMPRESSION: 1. No evidence of osteomyelitis 2. No evidence of abscess 3. Inflammatory changes within the superficial and deep soft tissues of the volar wrist. Consultations: orthopedics - Alexander Blank MD Medication Reconciliation New Medications: Amoxicillin & Pot Clavulanate (Augmentin 875-125 mg) 1 Tab Tab 875 MG PO BID for 10 Days, #20 TAB 0 Refills start AM 12/02/17 Doxycycline Hyclate (Doxycycline Hyclate) 100 Mg Cap 100 MG PO BID for 10 Days, #20 CAP 0 Refills start AM 12/02/17 Lactobacillus Acidophilus (Floranex) 1 Tab Tab 3 TAB PO TID for 10 Days, #90 TAB 0 Refills Continued Medications: Ascorbic Acid (Vitamin C) 500 Mg Tab 500 MG PO QAM B-Complex Vitamins (Vitamin B Complex) 1 Tab Tab 1 TAB PO QAM Cetirizine Hcl (Zyrtec) 10 Mg Tab 10 MG PO QAM Cholecalciferol (Vitamin D) 1,000 Unit Tab 1000 INTER.UNIT PO QAM Duloxetine Hcl (Cymbalta) 60 Mg Cap 60 MG PO HS TAKE ONE 60 MG CAPSULE ALONG WITH ONE 30 MG CAPSULE TO EQUAL 90 MG DAILY DOSE Duloxetine HCl (Cymbalta) 30 Mg Cap 30 MG PO DAILY, CAP TAKE ONE 30 MG CAPSULE ALONG WITH ONE 60 MG CAPSULE TO EQUAL 90 MG DAILY DOSE Linaclotide (Linzess) 72 Mcg Cap 72 MCG PO QAM Melatonin (Melatonin Maximum Strengt) 5 Mg Tab 5 MG PO HS Meloxicam (Meloxicam) 15 Mg Tab 15 MG PO HS Mycophenolate Mofetil (Cellcept) 250 Mg Cap 250 MG PO BID Omeprazole (Prilosec) 20 Mg Capcr 20 MG PO HS Tizanidine (Zanaflex) 4 Mg Cap 4 MG PO BID, CAP Referrals At Discharge Follow up Referrals: Orthopedics Referral - First Available with Juvenal Lucia MD Discharge Exam Physical Exam: General Appearance: WD/WN, no apparent distress ENT: pharynx normal Neck: no JVD Respiratory/Chest: lungs clear, no respiratory distress, no accessory muscle use Cardiovascular: regular rate, rhythm, no gallop, no murmur, normal peripheral pulses Abdomen / GI: normal bowel sounds, non tender, soft, no organomegaly Extremities: no pedal edema, + pertinent finding (left hand - able to flex/ extend ALL fingers. Gross swelling of left hand is markedly improved from prior exam. No tenderness with palpation of any small joint of the left hand. left wrist with scant swelling today; able to flex/extend wrist w/o pain today; forearm - swelling much improved today. left elbow - minimal swelling, able to flex/extend the elbow without pain. ) Neurologic/Psychiatric: alert, oriented x 3 Skin: + pertinent finding (minimal erythema of left forearm and dorsal/ palmar aspect of left hand; healing superficial wound/ulcer in the webspace between digits 4/5; no drainage from this superficial wound) Hospital Course HISTORY OF PRESENT ILLNESS: The patient is a 52-year-old female with h/o Lupus who presented to the emergency department with left arm discomfort, redness and swelling after a dog bite to her left hand 5 days ago. She reported that the swelling and redness initially began in her hand and since that time extended up her to about the level of the left elbow. She was unable to clench her left fist or bend her elbow. She had been seen at a local emergency department 2 evenings ago, was given IM ceftriaxone, and sent home on Keflex which she had been taking. She denied fevers, but had had chills. She had noticed a small amount of yellow drainage from the wound on her left hand. She reported she was on CellCept as a treatment for lupus. HOSPITAL COURSE: The patient was treated with IV zosyn & vancomycin for her left hand/arm cellulitis that was due to her recent dog bite near the 5th finger. Blood cultures remained negative while hospitalized. A wound culture was taken from the original dog bite/wound and grew coag negative staph. There was initially some concern for septic flexor tenosynovitis of several fingers of the left hand but fortunately the MRI of the left hand failed to show such. It also did not show abscess or osteomyelitis. Left wrist MRI was negative for any deep tissue infection, abscess, etc. There was never evidence of any compartment syndrome. Orthopedics was consulted during her stay but due to the reassuring MRIs no surgery was recommended. She had a remarkable improvement within 48 hours of all symptoms including the ability to move the elbow, wrist, and left hand fingers. Her swelling and erythema also improved greatly with IV antibiotics. At discharge she will transition to a 10-day course each of augmentin 875mg BID as well as doxycycline 100mg BID (for MRSA and coag negative staph coverage). Of note - MRSA [employer] [employer] swab was negative during this stay. She will remain on cellcept for her SLE as previous. She was asked to f/u with her PCP within 48 hours for a recheck of the left hand /arm. She also confirmed prior to discharge that her tetanus booster was up-to-date. Total Time Spent: Less than 30 minutes This includes examination of the patient, discharge planning, medication reconciliation, and communication with other providers. Discharge Instructions Please refer to the electronic Patient Visit Report (Discharge Instructions) for additional information. Follow-Up see PCP within 48 hours for recheck of left arm/hand Additional Copies To Juvenal Lucia MD; Matthew Dudley PA-C
[2017-12-02] MEDS ORDERED: VANCOMYCIN TROUGH ONE (15:30)
== END 2017-12-01 18:28 | disposition home or self-care (01) | DRG 603 ==
LOC: C.EDB 16:58 → C.MSW 19:20 → EDBEDREQ 19:27 → EDBEDREQSVC 19:27 → ENRESERV 20:15
PROVIDERS: ADMIT Hospitalist; ATTEND Internal Medicine
DX: L03.114 Cellulitis of left upper limb (principal); M32.9 Systemic lupus erythematosus, unspecified; K21.9 Gastro-esophageal reflux disease without esophagitis; K58.9 Irritable bowel syndrome, unspecified; J30.2 Other seasonal allergic rhinitis; D89.9 Disorder involving the immune mechanism, unspecified; F17.200 Nicotine dependence, unspecified, uncomplicated; W54.0XXA Bitten by dog, initial encounter; Z88.6 Allergy status to analgesic agent; Z88.2 Allergy status to sulfonamides

== ENCOUNTER 2022-06-24 11:47 | Inpatient (IN) ==
--- NOTE | 2022-06-24 13:36 | Ultrasound Report ---
US arterial duplex LE LT CLINICAL HISTORY: blockage? discoloration. TECHNIQUE: Real-time grayscale and color and spectral Doppler ultrasound imaging of the bilateral low er extremity arteries was performed. Measurements calculated based on NASCET criteria. COMPARISON: Comparison is made to CT abdomen pelvis 01/31/2017 FINDINGS: LEFT: Common femoral artery: Monophasic waveforms. Peak systolic velocity (PSV) 82 cm/s. Deep femoral artery: Monophasic waveforms. PSV 21 cm/s. Superficial femoral artery: Monophasic waveforms. PSV 37 cm/s. Popliteal artery: Monophasic waveforms. PSV 22 cm/s. Anterior tibial artery: Monophasic waveforms. PSV 80 cm/s. Posterior tibial artery: Monophasic waveforms. PSV 22 cm/s. Peroneal artery: Monophasic waveforms. PSV attending cm/s. Dorsalis pedis: Monophasic waveforms. PSV 70 cm/s. External iliac artery: Monophasic waveforms. Peak systolic velocity: 33 cm/s. IMPRESSION: Monophasic waveforms throughout with diminished velocities. Findings compatible with proximal stenosi s. ACT 112: Negative or not required by law. Electronically signed by: Yayo Patel M.D. 06/24/2022 1:34 PM
--- NOTE | 2022-06-24 14:46 | Emergency Department Note ---
History of Present Illness General Chief complaint: Leg Injury/Pain Stated complaint: REF BY , LEG PAIN Time Seen by Provider: 06/24/22 14:32 Source: patient History of Present Illness Provider complaint: Left leg pain Onset (ago): month(s) Location: lower extremity and left Radiation: non-radiation Pain Consistency: + intermittent Maximum Pain Intensity: 10 Quality: + aching and + other (Sharp with ambulation) Relieved By: + rest Exacerbated By: + other (Ambulation) Associated symptoms: no chest pain, no cough, no fever/chills, no headaches, no nausea/vomiting or no shortness of breath This is a 67-year-old female sent here from her doctor's office for evaluation of left leg pain. The patient has had symptoms consistent with claudication since May 07. She was initially evaluated by rheumatology due to her history of lupus and RA and then eventually sent to neurology. She states that about a week ago she started having purplish and black discoloration to her left foot with an increase in pain. She describes the pain as an aching sensation throughout the left leg without pain in the back. She states it is worse when she ambulates and better with rest. She states that it is sometimes sharp when she ambulates. She had an ultrasound of her left leg 2 days ago and was told that there was a blockage and that she would probably need some sort of bypass. She noticed today that her pain seem to be increased and the discoloration spread into the top of her foot. She called her doctor who advised her to come here for further evaluation. She denies any other symptoms at this time. She has had no fever, cough or cold symptoms, chest pain, shortness of breath, abdominal pain, vomiting, diarrhea or urinary symptoms. She has had no black or bloody stools or history of major bleed. She is currently on CellCept for RA and SLE. She denies any history of CVA or SC. Home Medications Medication Instructions Recorded Confirmed Type DULOXETINE HCL (CYMBALTA) 60 mg PO HS ##0 12/08/16 06/24/22 History MELATONIN (MELATONIN MAXIMUM 5 mg PO HS ##0 12/08/16 06/24/22 History STRENGT) MYCOPHENOLATE MOFETIL (CELLCEPT) 500 mg PO BID ##0 12/08/16 06/24/22 History OMEPRAZOLE (PRILOSEC) 20 mg PO HS ##0 12/08/16 06/24/22 History Tizanidine (Zanaflex) 4 mg PO BID #0 caps 12/08/16 06/24/22 History CETIRIZINE HCL (ZYRTEC) 10 mg PO QAM PRN allergies ##0 02/01/17 06/24/22 History Cholecalciferol (Vitamin D) 3,000 inter.unit PO QAM ##0 02/01/17 06/24/22 History Duloxetine HCl (Cymbalta) 30 mg PO DAILY #0 caps 11/29/17 06/24/22 History Allergies Allergy/AdvReac Type Severity Reaction Status Date / Time morphine Allergy Intermediate Swelling Verified 06/24/22 16:25 of Lip/Tongue/Throat aspirin Allergy Unknown NOSE BLEEDS Verified 02/11/17 13:41 Bactrim Allergy Unknown HIVES Verified 02/11/17 13:41 sulfamethoxazole [Bactrim] Allergy Unknown HIVES Verified 06/24/22 16:25 trimethoprim [Bactrim] Allergy Unknown HIVES Verified 06/24/22 16:25 Past Med/Surg History Medical History Rheumatoid arthritis SLE (systemic lupus erythematosus related syndrome) Social History Smoking Status: Current every day smoker Hx Alcohol Use: No Hx Substance Use: No Preferred Language: [employer] Tech Required: No Beliefs That Will Affect Care: None Feels Safe at Home: Yes Assistive Devices: Glasses Review of Systems See HPI for pertinent positives & negatives. and A total of 10 systems reviewed and were otherwise negative Physical Exam Vital Signs Vital Signs - 24 hr 06/24/22 12:06 06/24/22 14:30 06/24/22 16:00 Temperature 36.8 C Temperature Source Temporal Artery Scan Pulse Rate 90 Pulse Rate [Right Finger] 67 66 Pulse Rhythm [Right Finger] Regular Pulse Strength [Right Finger] Normal Respiratory Rate 18 16 18 Respiratory Effort / Characteristics Non-Labored Spontaneous Non-Labored Spontaneous Respiratory Depth Normal Normal Respiratory Pattern Regular Blood Pressure 138/84 Blood Pressure [Right Arm] 118/64 148/81 H Blood Pressure Mean 102 Blood Pressure Mean [Right Arm] 82 103 Pulse Oximetry 99 96 96 Oxygen Delivery Method Room Air Room Air Sepsis Recent Fever Within 48 Hours No Sepsis New/Unexplained Change in Mental Status No Sepsis Action Taken by Nursing No Action Required Constitutional: Vital signs reviewed. Eyes: Pupils are equal round reactive to light. Conjunctiva are noninjected. ENT: Pharynx is clear without erythema or exudate. Mucous membranes are moist. Neck supple without meningeal signs. Respiratory: Clear to auscultation bilaterally. Breath sounds are equal bilaterally. Cardiovascular: Regular rate and rhythm. No rubs or gallops. GI: Soft, nondistended and nontender. Bowel sounds are present. Musculoskeletal: No peripheral edema. Weak femoral and dorsalis pedis pulse on the left side. Foot is appropriate temperature. There is no necrosis. Slight purplish red discoloration of the toes especially the left great toe with delayed capillary refill. Integumentary: No cyanosis. or jaundice. Neurological: The patient is awake and alert. No focal deficits. Psychiatric: Normal affect. Not anxious appearing. Course Administered Medications Heparin Sodium/Dextrose (Heparin Sodium/Dextrose) 25,000 units in 500 mls @ 0.02 mls/hr IV .Q24H [facility]; Protocol Stop: 07/24/22 15:14 Last Titration: 06/24/22 19:06 Dose: 600 units/hr, 12 mls/hr Documented By: INGRID Co-signed By: CONRAD Admin: 06/24/22 15:41 Dose: 600 units/hr, 12 mls/hr Documented By: TIFFANY Co-signed By: RSChip Discontinued Medications Fentanyl Citrate (Fentanyl Citrate 100 Mcg/2 Ml Vial) 50 mcg IV NOW STA Stop: 06/24/22 16:45 Last Admin: 06/24/22 16:48 Dose: 50 mcg Documented By: SCOTT Heparin Sodium (Porcine) (Heparin Sod (Porcine) 1000 Unit/Ml) 1 units IV NOW ONE Stop: 06/24/22 15:11 Last Admin: 06/24/22 15:42 Dose: 3,000 units Documented By: TIFFANY Co-signed By: RSChip Morphine Sulfate (Morphine Sulfate 2 Mg/Ml Carp) 2 mg IV NOW STA Stop: 06/24/22 16:20 Last Admin: 06/24/22 18:09 Dose: Not Given Documented By: TW Ondansetron HCl (Ondansetron Inj 2 Mg/Ml 2 Ml Vial) 4 mg IV NOW STA Stop: 06/24/22 16:20 Last Admin: 06/24/22 16:48 Dose: 4 mg Documented By: SCOTT Medical Decision Making Differential Diagnosis Claudication, vascular insufficiency, vascular stenosis, arterial occlusion, infection, DVT Medical Records Attestation: I reviewed the patient's medical records. I did perform a limited focused review of portions of the patient's old chart on the electronic medical record. The patient has had no recent pertinent visits to this hospital. Home Medications Current Medication List: was personally reviewed by me Laboratory Data Result diagrams: 06/24/22 15:15 06/24/22 15:15 Lab Results 06/24/22 06/24/22 06/24/22 Range/Units 15:15 15:15 15:15 WBC 4.41 L (4.8-10.8) K/ul RBC 3.76 L (3.93-5.22) M/uL Hgb 10.9 L (12.0-16.0) g/dl Hct 34.1 (34.1-44.9) % MCV 90.7 (80.0-100.0) fL MCH 29.0 (25.0-34.0) pg MCHC 32.0 (32.0-36.0) g/dL RDW Std Deviation 45.8 (36.4-46.3) fL RDW Coeff of Shey 13.9 (11.5-14.5) % Plt Count 184 (130-400) K/uL MPV 11.1 (9.4-12.3) fL Immature Gran % (Auto) 0.2 % Neut % (Auto) 42.0 % Lymph % (Auto) 51.2 % Barber % (Auto) 5.4 % Eos % (Auto) 0.7 % Baso % (Auto) 0.5 % Neut # (Auto) 1.85 (1.4-6.5) K/uL Lymph # (Auto) 2.26 (1.2-3.4) K/uL Barber # (Auto) 0.24 (0.24-0.82) K/uL Eos # (Auto) 0.03 (0-0.50) K/uL Baso # (Auto) 0.02 (0-0.2) K/uL Immature Gran # (Auto) 0.01 (0.00-0.02) K/uL PT 9.8 (9.0-12.0) Seconds INR 0.9 (0.9-1.1) APTT 26.1 (21.0-31.0) Seconds PTT Ratio 0.9 Sodium 139 (136-145) mmol/L Potassium 4.2 (3.5-5.1) mmol/L Chloride 106 (98-107) mmol/L Carbon Dioxide 28 (21-32) mmol/L Anion Gap 5 (3-11) BUN 12 (6-23) mg/dl Creatinine 0.67 (0.6-1.2) mg/dl Est Cr Clr Drug Dosing 71.6 ml/min Est GFR ( Amer) 114.7 ml/min Est GFR (Non-Af Amer) 99.0 ml/min BUN/Creatinine Ratio 17.9 (10-20) Glucose 75 (70-99(Fasting)) mg/dl Calcium 9.7 (8.5-10.1) mg/dl Total Bilirubin 0.5 (0.2-1.0) mg/dl AST 21 (13-39) U/L ALT 23 (7-52) U/L Alkaline Phosphatase 65 (34-104) U/L Total Protein 7.0 (6.0-8.3) gm/dl Albumin 4.2 (3.4-5.0) gm/dl Globulin 2.8 (2.5-4.0) gm/dl Albumin/Globulin Ratio 1.5 (0.9-2) SARS-CoV-2, RNA, NAAT (NEGATIVE) 06/24/22 Range/Units 15:15 WBC (4.8-10.8) K/ul RBC (3.93-5.22) M/uL Hgb (12.0-16.0) g/dl Hct (34.1-44.9) % MCV (80.0-100.0) fL MCH (25.0-34.0) pg MCHC (32.0-36.0) g/dL RDW Std Deviation (36.4-46.3) fL RDW Coeff of Shey (11.5-14.5) % Plt Count (130-400) K/uL MPV (9.4-12.3) fL Immature Gran % (Auto) % Neut % (Auto) % Lymph % (Auto) % Barber % (Auto) % Eos % (Auto) % Baso % (Auto) % Neut # (Auto) (1.4-6.5) K/uL Lymph # (Auto) (1.2-3.4) K/uL Barber # (Auto) (0.24-0.82) K/uL Eos # (Auto) (0-0.50) K/uL Baso # (Auto) (0-0.2) K/uL Immature Gran # (Auto) (0.00-0.02) K/uL PT (9.0-12.0) Seconds INR (0.9-1.1) APTT (21.0-31.0) Seconds PTT Ratio Sodium (136-145) mmol/L Potassium (3.5-5.1) mmol/L Chloride (98-107) mmol/L Carbon Dioxide (21-32) mmol/L Anion Gap (3-11) BUN (6-23) mg/dl Creatinine (0.6-1.2) mg/dl Est Cr Clr Drug Dosing ml/min Est GFR ( Amer) ml/min Est GFR (Non-Af Amer) ml/min BUN/Creatinine Ratio (10-20) Glucose (70-99(Fasting)) mg/dl Calcium (8.5-10.1) mg/dl Total Bilirubin (0.2-1.0) mg/dl AST (13-39) U/L ALT (7-52) U/L Alkaline Phosphatase (34-104) U/L Total Protein (6.0-8.3) gm/dl Albumin (3.4-5.0) gm/dl Globulin (2.5-4.0) gm/dl Albumin/Globulin Ratio (0.9-2) SARS-CoV-2, RNA, NAAT NEGATIVE (NEGATIVE) Imaging Data Radiologist's Impression: Duplex Scan Lower Extremity Artery 06/24/22 12:20 US arterial duplex LE LT CLINICAL HISTORY: blockage? discoloration. TECHNIQUE: Real-time grayscale and color and spectral Doppler ultrasound imaging of the bilateral lower extremity arteries was performed. Measurements calculated based on NASCET criteria. COMPARISON: Comparison is made to CT abdomen pelvis 01/31/2017 FINDINGS: LEFT: Common femoral artery: Monophasic waveforms. Peak systolic velocity (PSV) 82 cm/s. Deep femoral artery: Monophasic waveforms. PSV 21 cm/s. Superficial femoral artery: Monophasic waveforms. PSV 37 cm/s. Popliteal artery: Monophasic waveforms. PSV 22 cm/s. Anterior tibial artery: Monophasic waveforms. PSV 80 cm/s. Posterior tibial artery: Monophasic waveforms. PSV 22 cm/s. Peroneal artery: Monophasic waveforms. PSV attending cm/s. Dorsalis pedis: Monophasic waveforms. PSV 70 cm/s. External iliac artery: Monophasic waveforms. Peak systolic velocity: 33 cm/s. IMPRESSION: Monophasic waveforms throughout with diminished velocities. Findings compatible with proximal stenosis. ACT 112: Negative or not required by law. Electronically signed by: Yayo Patel M.D. 06/24/2022 1:34 PM [facility] Narrative I did evaluate the patient as noted above. She is presenting with claudication symptoms for months. These have gotten worse over the past week and now she has significant discoloration and pain to her foot. An arterial Doppler of the leg was ordered in triage. I did review the images myself as well as the radiology report as described above. This showed monophasic waveforms throughout with diminished velocities consistent with proximal stenosis. She does state that she had an ultrasound done 2 days ago but I do not have access to those records. I did discuss case with Dr. Gamboa of vascular surgery. He recommended admitting the patient to the hospitalist and he will see her tomorrow for a revascularization procedure. He did recommend treatment with heparin. He did also ask for a CT angiogram of the abdomen pelvis with runoff into the left leg. I did discuss this with the patient. I did discuss risks and benefits of IV heparin with her. She has no history of major bleed and denies any black or bloody stools. She is agreeable to heparinization. IV access was established. I did place an order for IV heparin with bolus and continuous drip. I did treat the patient with IV fentanyl and Zofran. I did order and review the patient's blood work as noted in the electronic medical record. CBC demonstrates some leukopenia and anemia with a hemoglobin of 10.9. Her last hemoglobin in 2018 was also 10.9. Her last white blood cell count was 4.6 in 2018. Coagulation studies and CMP are within normal limits. Screening for COVID-[address] angiogram was ordered and is pending at this time. I did discuss the case w ith the hospitalist and case management coordinator. Impression & Plan Stenosis of artery of left lower extremity, Arterial insufficiency of lower extremity, Chronic anemia, Leukopenia Discharge Plan Visit Data Chief Complaint: Leg Injury/Pain Stated Complaint: REF BY , LEG PAIN ED Provider: Bienvenido Rondon Discharge Problem: Stenosis of artery of left lower extremity, Arterial insufficiency of lower extremity, Chronic anemia, Leukopenia Patient Disposition: Admitted As Inpatient Discharge Instructions Interventions: ED Discharge Assessment Last Done: 06/24/22 18:18
[2022-06-24] MEDS ORDERED: HEPARIN SOD (PORCINE) 1000 UNIT/ML IV ONE ×2 (15:10→23:30)
[2022-06-24] MEDS ORDERED: HEPARIN SODIUM/DEXTROSE 25,000 UNITS/500 ML BAG IV SCH (15:15)
[2022-06-24 15:33] LABS: Hematocrit (blood only) 34.1 % (34.1-44.9); Hemoglobin 10.9 g/dl (12.0-16.0); Mean Corpuscular Volume 90.7 fL (80.0-100.0); Mean Platelet Volume 11.1 fL (9.4-12.3); Platelet Count 184 K/uL (130-400); RDW Coefficient of Variation 13.9 % (11.5-14.5); RDW Standard Deviation 45.8 fL (36.4-46.3); Red Blood Count 3.76 M/uL (3.93-5.22); White Blood Count 4.41 K/ul (4.8-10.8)
[2022-06-24 15:51] LABS: Albumin Globulin Ratio 1.5 (0.9-2); Albumin Level 4.2 gm/dl (3.4-5.0); BUN Creatinine Ratio 17.9 (10-20); Bilirubin,Total 0.5 mg/dl (0.2-1.0); Calcium 9.7 mg/dl (8.5-10.1); Creatinine Clr Calc Pharmacy 71.6 ml/min; Est GFR (African American) 114.7 ml/min; Globulin 2.8 gm/dl (2.5-4.0); Potassium 4.2 mmol/L (3.5-5.1)
[2022-06-24 15:57] LABS: INR 0.9 (0.9-1.1); Partial Thromboplastin Ratio 0.9; Partial Thromboplastin Time 26.1 Seconds (21.0-31.0); Prothrombin Time 9.8 Seconds (9.0-12.0)
--- NOTE | 2022-06-24 16:00 | History & Physical Report ---
Date of Service June 24, 2022 History of Present Illness Primary Care Provider: Matthew Murrieta is a 57-year-old female with a past medical history of SLE, RA Per ER record review: 67-year-old female who presents with left leg pain. Symptoms of claudication for approximately 2 months. In the last 1 week has had dark purple/black discoloration of the left foot with worsening pain with an aching sensation. Consistent with prior claudication or pain worsens with ambulation. No prior history of cardiac disease/GA/CVA Left lower extremity arterial insufficiency - LLE Duplex: LEFT: Common femoral artery: Monophasic waveforms. Peak systolic velocity (PSV) 82 cm/s. Deep femoral artery: Monophasic waveforms. PSV 21 cm/s. Superficial femoral artery: Monophasic waveforms. PSV 37 cm/s. Popliteal artery: Monophasic waveforms. PSV 22 cm/s. Anterior tibial artery: Monophasic waveforms. PSV 80 cm/s. Posterior tibial artery: Monophasic waveforms. PSV 22 cm/s. Peroneal artery: Monophasic waveforms. PSV attending cm/s. Dorsalis pedis: Monophasic waveforms. PSV 70 cm/s. External iliac artery: Monophasic waveforms. Peak systolic velocity: 33 cm/s. IMPRESSION: Monophasic waveforms throughout with diminished velocities. Findings compatible with proximal stenosis. No leukocytosis Hemoglobin 10.9 INR: Creatinine with normal baseline less than 1 Admitting creatinine 0.67 Vascular surgery consulted [] Started on heparin gtt. Lipid panel pending Depression/anxiety Continue duloxetine 90 mg daily IBS Continue Linzess 72 mcg daily SLE rheumatoid arthritis On mycophenolate 250 mg p.o. twice daily, hold pending surgical intervention Allergies Allergy/AdvReac Type Severity Reaction Status Date / Time aspirin Allergy Unknown NOSE BLEEDS Verified 02/11/17 13:41 Bactrim Allergy Unknown HIVES Verified 02/11/17 13:41 Home Medications Medication Instructions Recorded Confirmed Type DULOXETINE HCL (CYMBALTA) 60 mg PO HS ##0 12/08/16 History MELATONIN (MELATONIN MAXIMUM 5 mg PO HS ##0 12/08/16 History STRENGT) MYCOPHENOLATE MOFETIL (CELLCEPT) 250 mg PO BID ##0 12/08/16 History Meloxicam 15 mg PO HS ##0 12/08/16 History OMEPRAZOLE (PRILOSEC) 20 mg PO HS ##0 12/08/16 History Tizanidine (Zanaflex) 4 mg PO BID #0 caps 12/08/16 History Ascorbic Acid (Vitamin C) 500 mg PO QAM ##0 02/01/17 History B-COMPLEX VITAMINS (VITAMIN B 1 tab PO QAM ##0 02/01/17 History COMPLEX) CETIRIZINE HCL (ZYRTEC) 10 mg PO QAM ##0 02/01/17 History Cholecalciferol (Vitamin D) 1,000 inter.unit PO QAM ##0 02/01/17 History Duloxetine HCl (Cymbalta) 30 mg PO DAILY #0 caps 11/29/17 History Linaclotide (Linzess) 72 mcg PO QAM ##0 11/29/17 History Amoxicillin & Pot Clavulanate 875 mg PO BID 10 days #20 tabs 12/01/17 Rx (Augmentin 875-125 mg) Doxycycline Hyclate 100 mg PO BID 10 days #20 caps 12/01/17 Rx Lactobacillus Acidophilus 3 tab PO TID 10 days #90 tabs 12/01/17 Rx (Floranex) Past Med/Surg History Medical History Rheumatoid arthritis SLE (systemic lupus erythematosus related syndrome) Social History Smoking Status: Current some day smoker Feels Safe at Home: Yes Results & Data Results & Data ([facility]) Vital Signs (Past 12 Hours) Vital Signs Temp Pulse Pulse Resp BP BP Pulse Ox 06/24/22 14:30 67 16 118/64 96 06/24/22 12:06 36.8 C 90 18 138/84 99 O2 Del Method 06/24/22 14:30 Room Air 06/24/22 12:06 Room Air PG Care Time/CCT Total # of Minutes Spent Total Time Spent with Patient: Total time spent is greater than 50% in coordination of care (as documented) at patient's floor/unit and/or counseling patient: Coding
[2022-06-24] MEDS ORDERED: MoRPHine SULFATE 2 MG/ML CARP IV STA (16:19)
[2022-06-24] MEDS ORDERED: ONDANSETRON INJ 2 MG/ML 2 ML VIAL IV STA (16:19)
--- NOTE | 2022-06-24 16:26 | History & Physical Report ---
Date of Service June 24, 2022 Assessment & Plan (1) Stenosis of artery of left lower extremity: Plan: Glenny is a 57-year-old female with a past medical history of SLE, RA who presents with L claudication and darkening of the L foot/toe with dopplers showing monophasic flow and proximal lesion Left lower extremity arterial insufficiency - LEFT LE Doppler: Common femoral artery: Monophasic waveforms. Peak systolic velocity (PSV) 82 cm/s. Deep femoral artery: Monophasic waveforms. PSV 21 cm/s. Superficial femoral artery: Monophasic waveforms. PSV 37 cm/s. Popliteal artery: Monophasic waveforms. PSV 22 cm/s. Anterior tibial artery: Monophasic waveforms. PSV 80 cm/s. Posterior tibial artery: Monophasic waveforms. PSV 22 cm/s. Peroneal artery: Monophasic waveforms. PSV attending cm/s. Dorsalis pedis: Monophasic waveforms. PSV 70 cm/s. External iliac artery: Monophasic waveforms. Peak systolic velocity: 33 cm/s. IMPRESSION: Monophasic waveforms throughout with diminished velocities. Findings compatible with proximal stenosis. - CTA Runoff: pending No leukocytosis - No hx cilastozol use Hemoglobin 10.9 INR: 0.9 Creatinine with normal baseline less than 1 Admitting creatinine 0.67 Started on heparin gtt. Lipid panel pending - Discussed w/ ER provider, Vascular consulted --> recommended to heparinize and admit to medicine. Surgical intervention tomorrow. CTA-runoff pending - No prior hx aspirin use. - Smoking cessation counseling provided. Depression/anxiety Continue duloxetine 90 mg daily SLE rheumatoid arthritis On mycophenolate 500 mg p.o. twice daily, hold pending surgical intervention - PPI switched to protonix while inpt DVT prophylaxis: Heparin eyes Diet: N.p.o. CODE STATUS: Full (2) Peripheral arterial disease: (3) SLE (systemic lupus erythematosus related syndrome): (4) Rheumatoid arthritis: (5) Left arm cellulitis: (6) Left upper extremity swelling: History of Present Illness Primary Care Provider: Matthew Dudley Glenny is a 57-year-old female with a past medical history of SLE, RA who presents with L claudication and darkening of the L foot/toe with dopplers showing monophasic flow and proximal lesion Per ER record review: 67-year-old female who presents with left leg pain. Symptoms of claudication for approximately 2 months. In the last 1 week has had dark purple/black discoloration of the left foot with worsening pain with an aching sensation. Consistent with prior claudication or pain worsens with ambulation. Foot black and purple since Saturday. Morales doppler on Saturday. Today the discoloration started spreading to top of the foot. No prior history of cardiac disease/GA/CVA Per Pt: Started having pain in her calves in May this year. Since Saturday her foot started turning darker and more purple Not sure if it darkens when hanging over the bed. When she walks the foot gets much darker in color CUrrently 4th digit feels 'like its going to blow up' Pain in her calf occurs when she is ambulating, OK at rest. With rest calf pain gradually recedes. Can walk 20-40 yards before pain starts to set into mid L calf and then spreads proximally. At bedside foot coloration is actually improving and more pink/warm. No history of GA/Strokes/Blood Clots Endorses hx of renauds and tobacco ise Med Review: On cellcept for 5-6 years. Previously on MTX stopped for fatigue. NO DM. No CKD/kidney disease. Duloxetine 90mg NO more Linzess NO meloxicam Melatonin qus Prilosec --> protonix while inpt 500mg Cellcept AM and PM --> increased from 250mg BID since last hx Zanaflex 4mg BID Zy PRNrtek Vitamin D3 1-3000u d Medical History: Reviewed Medications: Reviewed Surgical History: Reviewed Allergies: Reviewed Social History:Endorses current cigarette use. 1pack per 3 days, ~40 year history. No alcohol use. No recreational drug use. Code Status: Full Code Allergies Allergy/AdvReac Type Severity Reaction Status Date / Time morphine Allergy Intermediate Swelling Verified 06/24/22 16:25 of Lip/Tongue/Throat aspirin Allergy Unknown NOSE BLEEDS Verified 02/11/17 13:41 Bactrim Allergy Unknown HIVES Verified 02/11/17 13:41 sulfamethoxazole [Bactrim] Allergy Unknown HIVES Verified 06/24/22 16:25 trimethoprim [Bactrim] Allergy Unknown HIVES Verified 06/24/22 16:25 Home Medications Medication Instructions Recorded Confirmed Type DULOXETINE HCL (CYMBALTA) 60 mg PO HS ##0 12/08/16 06/24/22 History MELATONIN (MELATONIN MAXIMUM 5 mg PO HS ##0 12/08/16 06/24/22 History STRENGT) MYCOPHENOLATE MOFETIL (CELLCEPT) 500 mg PO BID ##0 12/08/16 06/24/22 History OMEPRAZOLE (PRILOSEC) 20 mg PO HS ##0 12/08/16 06/24/22 History Tizanidine (Zanaflex) 4 mg PO BID #0 caps 12/08/16 06/24/22 History CETIRIZINE HCL (ZYRTEC) 10 mg PO QAM PRN allergies ##0 02/01/17 06/24/22 History Cholecalciferol (Vitamin D) 3,000 inter.unit PO QAM ##0 02/01/17 06/24/22 History Duloxetine HCl (Cymbalta) 30 mg PO DAILY #0 caps 11/29/17 06/24/22 History Past Med/Surg History Medical History Rheumatoid arthritis SLE (systemic lupus erythematosus related syndrome) Social History Smoking Status: Current some day smoker Feels Safe at Home: Yes Review of Systems Review of Systems: All systems reviewed & are unremarkable except as noted in Subjective Physical Exam Physical Exam: General: A&Ox3. NAD. Cooperative. HEENT: Atraumatic, normocephalic. Vision/hearing grossly intact. No bruits Pulm: CTAB A&P. -wheezes, -rales, -rhonchi. Symmetrical chest rise. No increased work of breathing. No respiratory distress. Cardiac: RRR, -mrg. Radial pulses intact and symmetrical. Abdominal: Nontender, nondistended, soft. BS present. Extremities: L foot warm, dry. distal hallux and 4th toe dusky. Sensation to soft touch intact. No edema. R foot warm/dry without darkening. R DP/PT pulse palable. L PT/DP not palpable. Results & Data Results & Data ([facility]) Vital Signs (Past 12 Hours) Vital Signs Temp Pulse Pulse Resp BP BP Pulse Ox 06/24/22 14:30 67 16 118/64 96 06/24/22 12:06 36.8 C 90 18 138/84 99 O2 Del Method 06/24/22 14:30 Room Air 06/24/22 12:06 Room Air PG Care Time/CCT Total # of Minutes Spent Total Time Spent with Patient: Total time spent is greater than 50% in coordination of care (as documented) at patient's floor/unit and/or counseling patient: Coding Level of Care Code 99010 Initial Inpt Care Lvl 2 Diagnoses Stenosis of artery of left lower extremity I70.202 Peripheral arterial disease I73.9 SLE (systemic lupus erythematosus related syndrome) M32.9 Rheumatoid arthritis M06.9 Left arm cellulitis L03.114 Left upper extremity swelling M79.89
[2022-06-24 16:27] LABS: Basophils # (auto) 0.02 K/uL (0-0.2); Basophils % (auto) 0.5 %; Eosinophils # (auto) 0.03 K/uL (0-0.50); Eosinophils % (auto) 0.7 %; Immature Granulocytes # (auto) 0.01 K/uL (0.00-0.02); Immature Granulocytes % (auto) 0.2 %; Lymphocytes # (auto) 2.26 K/uL (1.2-3.4); Lymphocytes % (auto) 51.2 %; Monocytes # (auto) 0.24 K/uL (0.24-0.82); Monocytes % (auto) 5.4 %; Neutrophils # (auto) 1.85 K/uL (1.4-6.5)
[2022-06-24] MEDS ORDERED: fentaNYL citrate 100 MCG/2 ML VIAL IV STA (16:44)
[2022-06-24] MEDS ORDERED: ACETAMINOPHEN 325 MG TAB PO PRN (18:45)
[2022-06-24] MEDS ORDERED: HYDROmorphone INJ 1 MG/ML SYRINGE IV PRN (18:45)
[2022-06-24] MEDS ORDERED: HYDROmorphone INJ 0.5 MG/0.5 ML SYR IV PRN (18:45)
[2022-06-24] MEDS ORDERED: ONDANSETRON INJ 2 MG/ML 2 ML VIAL IV PRN (18:45)
[2022-06-24] MEDS ORDERED: POLYETHYLENE (MIRALAX) 17 GM PACK PO PRN (18:45)
[2022-06-24] MEDS ORDERED: OPTIRAY 300 500mL IV ONE (21:40)
[2022-06-24] MEDS ORDERED: Heparin IV Adult Wt-Based Low-Dose WITH Bolus Protocol IV SCH (21:41)
[2022-06-24] MEDS: MELATONIN 3 MG TAB PO PRN (22:32)
[2022-06-24 22:56] LABS: Partial Thromboplastin Ratio 1.1; Partial Thromboplastin Time 30.2 Seconds (21.0-31.0)
[2022-06-25] MEDS ORDERED: NSS + 20MEQ KCL 20 MEQ/1,000 ML BAG IV SCH
[2022-06-25 06:23] LABS: Hematocrit (blood only) 32.1 % (34.1-44.9); Hemoglobin 10.5 g/dl (12.0-16.0); Mean Corpuscular Hgb Conc 32.7 g/dL (32.0-36.0); Mean Corpuscular Volume 88.7 fL (80.0-100.0); Mean Platelet Volume 10.9 fL (9.4-12.3); Platelet Count 157 K/uL (130-400); RDW Coefficient of Variation 14.1 % (11.5-14.5); RDW Standard Deviation 45.2 fL (36.4-46.3); Red Blood Count 3.62 M/uL (3.93-5.22); White Blood Count 4.77 K/ul (4.8-10.8)
[2022-06-25 06:41] LABS: BUN Creatinine Ratio 19.5 (10-20); Chol HDL Ratio 6.7 (0-5); Creatinine Clr Calc Pharmacy 62.3 ml/min; Est GFR (African American) 100.7 ml/min; Est GFR (Non-African American) 86.9 ml/min; Potassium 4.1 mmol/L (3.5-5.1)
[2022-06-25 06:53] LABS: Partial Thromboplastin Ratio 2.7
[2022-06-25 07:38] LABS: Partial Thromboplastin Time 73.1 Seconds (21.0-31.0)
--- NOTE | 2022-06-25 08:43 | Consultation ---
Date of Consultation June 25, 2022 Assessment & Plan (1) Aortoiliac occlusive disease: Pt with short L external iliac artery occlusion by CTA. Exam and sx consistent with severe claudication and toe ischemia. Pt discussed with Dr Gamboa, recommends pt undergo LLE angio with intervention this AM. Procedure, risks, benefits, and alternatives discussed with pt by myself at Dr Gamboa's request. Pt agreeable to proceed. Patient was seen, examined, and chart reviewed. Agree with exam and treatment p raf of the Vascular PA. History of Present Illness Reason for Consultation: LLE PAD Attending Physician: Galen Ross MD History of Present Illness 57 yo f with hx of RA and SLE on chronic cellcept, admitted with severe pain in LLE with ambulation for past 6 weeks, and noted to have a L external iliac artery occlusion, seen in consultation today for same. Pt states she began noticing LLE pain with ambulating that started in her calf and quickly her entire leg. States the pain resolves with resting. Also noted L toe purple discoloration intermittently, worse with ambulation as well. Admits slight numbness when ambulating. Denies URBINA, fever, chest pain, SOB, abd pain, N/V, rest pain, ulcerations, edema, other complaints. LLE arterial US demonstrates monophasic inflow to LLE. CTA demonstrates short occlusion of L external iliac artery, but patent flow throughout LLE otherwise. Allergies Allergy/AdvReac Type Severity Reaction Status Date / Time morphine Allergy Intermediate Swelling Verified 06/24/22 16:25 of Lip/Tongue/Throat aspirin Allergy Unknown NOSE BLEEDS Verified 02/11/17 13:41 Bactrim Allergy Unknown HIVES Verified 02/11/17 13:41 sulfamethoxazole [Bactrim] Allergy Unknown HIVES Verified 06/24/22 16:25 trimethoprim [Bactrim] Allergy Unknown HIVES Verified 06/24/22 16:25 Home Medications Medication Instructions Recorded Confirmed Type DULOXETINE HCL (CYMBALTA) 60 mg PO HS ##0 12/08/16 06/24/22 History MELATONIN (MELATONIN MAXIMUM 5 mg PO HS ##0 12/08/16 06/24/22 History STRENGT) MYCOPHENOLATE MOFETIL (CELLCEPT) 500 mg PO BID ##0 12/08/16 06/24/22 History OMEPRAZOLE (PRILOSEC) 20 mg PO HS ##0 12/08/16 06/24/22 History Tizanidine (Zanaflex) 4 mg PO BID #0 caps 12/08/16 06/24/22 History CETIRIZINE HCL (ZYRTEC) 10 mg PO QAM PRN allergies ##0 02/01/17 06/24/22 History Cholecalciferol (Vitamin D) 3,000 inter.unit PO QAM ##0 02/01/17 06/24/22 History Duloxetine HCl (Cymbalta) 30 mg PO DAILY #0 caps 11/29/17 06/24/22 History Patient History Medical History (Updated 06/25/22 @ 08:41 by Nicole Leslie PA-C) Aortoiliac occlusive disease Rheumatoid arthritis SLE (systemic lupus erythematosus related syndrome) Social History Smoking Status: Current every day smoker Hx Alcohol Use: No Hx Substance Use: No Preferred Language: Chinese Assistant Shift Supervisor Required: No Beliefs That Will Affect Care: None Feels Safe at Home: Yes Assistive Devices: Glasses Review of Systems Review of Systems: All systems reviewed & are unremarkable except as noted in HPI & below Physical Exam Constitutional: WD/WN, vitals as above healthy appearing, cooperative and comfortable; not in distress ENMT: Ears: no hearing impairment Neck: trachea midline Respiratory: normal respiratory effort, lungs clear to auscultation Cardiovascular: Rate/Rhythm: regular rate and regular rhythm Vessels: femoral pulses present (RLE +3, LLE absent), posterior tibial pulses present (RLE +3, LLE absent), dorsalis pedis pulses present (RLE +2, LLE +1) and radial pulses present; + abnormal peripheral pulses Extremities: + abnormal capillary refill (LLE toes purple at rest, delayed cap refill) and no edema Gastrointestinal (Abdomen): Inspection/Auscultation: abdomen normal to inspection and normal bowel sounds Percussion/Palpation: abdomen soft; abdomen nontender Musculoskeletal: Extremities: strength 5/5 throughout Skin: no rashes, warm and dry Neurologic: moves all extremities and awake; no focal motor deficits and not confused Psychiatric: A+Ox3, euthymic affect Results & Data ([place]) Vital Signs (Past 12 Hours) Vital Signs Temp Pulse Resp BP Pulse Ox O2 Del Method 06/25/22 08:14 36.7 C 68 16 138/69 98 Room Air 06/24/22 22:05 36.8 C 71 12 157/72 H 98 Room Air
[2022-06-25] MEDS ORDERED: DULoxetine HCL 30 MG CAP PO SCH (09:00)
[2022-06-25] MEDS ORDERED: PANTOprazole 40 MG TAB PO SCH (09:00)
[2022-06-25 09:17] LABS: Basophils # (auto) 0.02 K/uL (0-0.2); Basophils % (auto) 0.4 %; Eosinophils # (auto) 0.06 K/uL (0-0.50); Eosinophils % (auto) 1.3 %; Immature Granulocytes # (auto) 0.02 K/uL (0.00-0.02); Immature Granulocytes % (auto) 0.4 %; Lymphocytes # (auto) 2.84 K/uL (1.2-3.4); Lymphocytes % (auto) 59.5 %; Monocytes # (auto) 0.29 K/uL (0.24-0.82); Monocytes % (auto) 6.1 %; Neutrophils # (auto) 1.54 K/uL (1.4-6.5); Neutrophils % (auto) 32.3 %
[2022-06-25] MEDS ORDERED: MIDAZOLAM HCL 1 MG/ML 2ML VIAL ONE ×2 (09:23→09:47)
[2022-06-25] MEDS ORDERED: fentaNYL citrate 100 MCG/2 ML VIAL ONE (09:23)
[2022-06-25] MEDS ORDERED: HEPARIN SOD (PORCINE) 1000 UNIT/ML ONE (09:47)
[2022-06-25] MEDS ORDERED: ceFAZolin 1000MG 1,000 MG/7.5 ML SYR IV ONE (09:52)
--- NOTE | 2022-06-25 10:12 | Pre Anesthesia Assessment ---
Date of Service June 25, 2022 Pre Sedation Assessment Vital Signs Temp Pulse Pulse Resp BP BP Pulse Ox 06/25/22 10:10 74 16 192/98 H 99 06/25/22 10:05 75 16 198/90 H 99 06/25/22 10:00 68 16 141/69 H 99 06/25/22 09:55 71 16 135/64 99 06/25/22 09:50 69 18 135/64 96 06/25/22 09:45 69 18 168/78 H 96 06/25/22 09:40 66 18 170/77 H 96 06/25/22 09:24 36.7 C 55 L 18 132/66 95 06/25/22 08:14 36.7 C 68 16 138/69 98 06/24/22 22:05 36.8 C 71 12 157/72 H 98 06/24/22 18:47 36.8 C 68 18 129/60 98 06/24/22 16:00 66 18 148/81 H 96 06/24/22 14:30 67 16 118/64 96 06/24/22 12:06 36.8 C 90 18 138/84 99 O2 Del Method O2 Flow Rate 06/25/22 10:10 Oxymask 4 06/25/22 10:05 Oxymask 4 06/25/22 10:00 Oxymask 4 06/25/22 09:55 Oxymask 4 06/25/22 09:50 Oxymask 4 06/25/22 09:45 Oxymask 4 06/25/22 09:40 Oxymask 4 06/25/22 09:24 Room Air 06/25/22 08:14 Room Air 06/24/22 22:05 Room Air 06/24/22 18:47 Room Air 06/24/22 16:00 06/24/22 14:30 Room Air 06/24/22 12:06 Room Air Cardiovascular RRR, no murmur, no edema Respiratory normal respiratory effort, lungs clear to auscultation Pre-Sedation Airway Assessment Smoking Status: Current every day smoker Hx Sleep Apnea: No Short, Thick Neck: No Thyromental Distance: > or= 3.5 Finger Breadths Oral Cavity: + WNL Mallampati Class: II ASA: ASA2 NPO Status Date of Last Intake of Fluids: 06/24/22 Time of Last Intake of Fluids: 21:30 Last Oral Intake of Fluids Comment: sips with medication Date of Last Intake of Solid Food: 06/24/22 Time of Last Intake of Solid Foods: 21:30 Procedure Planning Contraindications for Sedation: none Current Medications Reviewed: No Notes The planned sedation has been discussed with the patient. Informed Consent was obtained. I have identified the patient, determined the appropriateness of sedation and have assessed the patient immediately prior to the procedure. All medicine(s) and interventions are by my order.
[2022-06-25] MEDS ORDERED: LIDOCAINE 1% LOCAL 20 ML VIAL INJ ONE (10:13)
[2022-06-25] MEDS ORDERED: VISIPAQUE IV PRN (10:13)
[2022-06-25] MEDS ORDERED: hydrALAZINE HCL 20 MG/ML VIAL ONE (10:15)
--- NOTE | 2022-06-25 10:20 | Procedure Note ---
Angiogram Post Procedure Fluoroscopy Time (minutes): 1 Conscious Sedation Time (minutes): 47 Radiation (mGy): 51 Contrast: 95. Post Operative Report Pre & Post Diagnosis Operation Date: 06/25/22 09:40 Pre-Op Diagnosis: Left External Iliac Occulsion with Ischemic Toe Post-Op Diagnosis: Left External Iliac Occulsion with Ischemic Toe I identified the patient and participated in the time-out.: Yes Procedure Operation Date: 06/25/22 09:40 Actual Procedures p Stenting of Left External Illiac Artery, Ultrasound Localization of Bilateral Femoral Arteries, Mechanical Closure of Bilateral Bilateral Femoral Arteries, Moderate Sedation [id number](Bilateral) - Osito Gamboa MD Surgeon Osito Gamboa MD [employer] Handicapper none Estimated Blood Loss 10 Findings Consistent with Post-Op Diagnosis Specimens none Anesthesia Type RN Sedation Complications none Disposition Accompanied Patient To Recovery: No Disposition: Recovery Room Indications This is a 57-year-old female who has a 7-week history of left leg claudication which is gotten progressively worse to very short distances of less than 20 yards. She is also developed discoloration of the left great toe. CT angiogram shows an occlusion of her left external iliac artery at its origin. And also stenosis of the common iliac artery left side. Arteriography was recommended with possible intervention. I have discussed the risks options and benefits of the procedure with the patient. The patient understands the risks options and benefits and agrees to the procedure. Description of Procedure The patient was taken to the angiogram suite and placed in supine position. After both groins were prepped and draped in a sterile manner the patient was identified and timeout was performed. Local anesthesia was then administered to the right groin. Ultrasound was used to locate the right common femoral artery which was patent and had good pulsatile flow. Under ultrasound guidance the right common femoral artery was punctured and a 5 Sudanese sheath inserted. 035 wire was then inserted to the sheath and a pigtail. Pigtail was placed in the distal aorta. Aortography was done of the left lower extremity which showed the common iliac artery patent but slightly smaller than the right. There was a very tight stenosis of the left external iliac artery just at its origin. The distal external iliac artery was patent as well as the common femoral arteries. The rest of the runoff on the CAT scan was normal on both sides. Both internal iliacs arteries were patent with the right larger than the left. There was good collateral flow between these 2. It was decided that we would place a Viabahn stent on the left side even though it occluded the internal on the left there was good collateral flow to there be good compensation from the right to left. Using ultrasound the left common femoral artery was identified. This was also patent with sluggish flow. Using ultrasound the left common femoral artery was punctured and a 7 Sudanese sheath was inserted. Using 035 wire the lesion was crossed. Once the wire was in the aorta an angled glide cath was inserted. The wire was removed. Hand-injection was done through the catheter which showed it to be true lumen. We then replaced the 035 wire and remove the angled glide catheter. An 8 x 39 Viabahn was then inserted. It was placed just proximal to the stenosis. It was expanded 8 mm without difficulty. We then advanced the balloon within the common iliac artery and dilated the common iliac artery 8 mm also. Completion angiogram showed excellent flow through the left side. The left internal iliac origin was occluded however there was a very rapid refill of the internal iliac just beyond its origin. That point the wire cath was removed. Both groins were closed with the Star closure device. Added hemosta sis was noted. Sterile dressings were applied. The patient left the operation room in satisfactory condition and tolerated the procedure well. All needle and sponge counts were correct at the end of the procedure.The patient left the operation room in satisfactory condition and tolerated the procedure well. All needle and sponge counts were correct at the end of the procedure. I attest to the content of the Intraoperative Record and any orders documented therein. Any exceptions are noted below.
--- NOTE | 2022-06-25 10:31 | Post Anesthesia Assessment ---
Date of Service June 25, 2022 Post Sedation Assessment Vital Signs Temp Pulse Pulse Resp BP BP Pulse Ox 06/25/22 10:27 72 16 190/89 H 99 06/25/22 10:25 73 16 184/90 H 99 06/25/22 10:20 73 16 192/88 H 99 06/25/22 10:10 74 16 192/98 H 99 06/25/22 10:05 75 16 198/90 H 99 06/25/22 10:15 75 16 195/91 H 99 06/25/22 10:00 68 16 141/69 H 99 06/25/22 09:55 71 16 135/64 99 06/25/22 09:50 69 18 135/64 96 06/25/22 09:45 69 18 168/78 H 96 06/25/22 09:40 66 18 170/77 H 96 06/25/22 09:24 36.7 C 55 L 18 132/66 95 06/25/22 08:14 36.7 C 68 16 138/69 98 06/24/22 22:05 36.8 C 71 12 157/72 H 98 06/24/22 18:47 36.8 C 68 18 129/60 98 06/24/22 16:00 66 18 148/81 H 96 06/24/22 14:30 67 16 118/64 96 06/24/22 12:06 36.8 C 90 18 138/84 99 O2 Del Method O2 Flow Rate 06/25/22 10:27 Oxymask 4 06/25/22 10:25 Oxymask 4 06/25/22 10:20 Oxymask 4 06/25/22 10:10 Oxymask 4 06/25/22 10:05 Oxymask 4 06/25/22 10:15 Oxymask 4 06/25/22 10:00 Oxymask 4 06/25/22 09:55 Oxymask 4 06/25/22 09:50 Oxymask 4 06/25/22 09:45 Oxymask 4 06/25/22 09:40 Oxymask 4 06/25/22 09:24 Room Air 06/25/22 08:14 Room Air 06/24/22 22:05 Room Air 06/24/22 18:47 Room Air 06/24/22 16:00 06/24/22 14:30 Room Air 06/24/22 12:06 Room Air Recovery Score Activity: Moves 4 extremities Respiration: Deep Breath/Cough Circulation: +/-20% PreAnes Value Consciousness: Fully Awake Oxygen Saturation: O2 needed for >90% Post Anesthesia Score: 9 Discharge Sedation Level of Care: Fast Track Phase II Post Sedation Plan On clinical assessment, the patient appears to have tolerated the sedation without complications. Patient is recovering as anticipated. Patient will continue to be monitored by nursing and may be discharged when sedation discharge criteria are met per below protocol. Upon Completions of procedure up to 15 minutes continue every 5 minute vital signs and the P.A.R. score; then discharge to a Phase I or Fast Track to Phase II per the following guidelines: * Discharge Patient to appropriate Phase II area if PAR is 8 or greater or return to pre- procedure baseline. The post - procedure orders will be as directed. * If PAR score is less than 8 or not return to pre-procedure baseline then patient will follow Phase I monitoring till PAR is reached for Phase II. The Phase I may be done in procedure room or may call to secure a Phase I area. * If naloxone or flumazenil are used for reversal, hold in Phase I for continued monitoring from when last reversal dose was given for a minimum of 60 minutes or longer pending the nurse and/or physician discretion of patient condition before discharge to Phase II. Please call the Sedation Physician to re-evaluate and complete post-note for discharge to Phase II area. Do NOT discharge from procedure sedation or Phase 1 until post- sedation evaluation note is complete by procedure /sedation MD Sedation Discharge Instructions to be given to the patient at discharge to home.
[2022-06-25] MEDS ORDERED: CLOPIDOGREL BISULFATE 300 MG TAB PO STA (10:51)
[2022-06-25] MEDS ORDERED: SODIUM CHLORIDE 0.9% 1000ML 1,000 ML IV SCH (10:51)
[2022-06-25] MEDS ORDERED: oxyCODONE/ACETAMINOPHEN 5mg/325mg TAB PO PRN (10:51)
--- NOTE | 2022-06-25 11:09 | CT Scan Report ---
CT ang KENNA dudley jaleel escalona HISTORY: 57 years-old Female pain left leg with stenosis on US peripheral arterial disease with pain of the left lower extremity COMPARISON: CT abdomen and pelvis 01/31/2017, arterial ultrasound 06/24/2022 TECHNIQUE: CTA abdomen and pelvis was obtained following the intravenous administration of 107 mL Optiray. 3-D coronal and sagi ttal MIPS were obtained from the axial data set and were submitted for review. All measurements were obtained according to NASCET criteria. FINDINGS: CTA: Mild cardiomegaly. Moderate to extensive atherosclerosis of the aorta. No abdominal aortic aneurysm or dissection. Small ulcerative plaques are noted within the infrarenal abdominal aorta. There is pat ency of the celiac trunk, superior mesenteric and renal arteries. There is high-grade stenosis at the origin of the inferior mesenteric artery (at least 70%). RIGHT LOWER EXTREMITY: Diffuse atherosclerotic plaque. There is patency of the common and external iliac arteries. The commo n and superficial femoral arteries are patent. There is approximately 50% stenosis involving the dist al superficial femoral artery. Mild stenosis of the popliteal artery. Patent tibioperoneal trunk, ant erior, posterior and peroneal arteries with three-vessel flow extending to level of the ankle. LEFT LOWER EXTREMITY: Diffuse atherosclerotic plaque. There is patency of the common and external iliac arteries. High-grad e stenosis at the left iliac bifurcation and proximal internal and external iliac arteries. The commo n femoral artery is patent. There is approximately 50% luminal narrowing involving the proximal aspec t of the superficial femoral artery. Mild multifocal stenosis involving the distal aspect of the supe rficial femoral artery. The popliteal artery is patent. The tibioperoneal trunk is patent. Patent ant erior, posterior tibial and peroneal arteries. Three-vessel flow extends to the level of the ankle. CT ABDOMEN AND PELVIS: There is a 10 mm subpleural nodular density of the basal right lower lobe on image 75 of series 3 whi ch is new from the prior study. No pneumatosis or pneumoperitoneum. The spleen measures within the up per limits of normal in size. The pancreas and adrenal glands are unremarkable. Cholecystectomy. Enla rged periportal and precaval lymph nodes measure up to 1.6 cm in short axis. Borderline enlarged yessica rohepatic lymph nodes. The liver is within normal limits. Symmetric enhancement of the kidneys. 8 mm cyst within the anterior interpolar right kidney. Partial distention of the urinary bladder with mild wall thickening. Hysterectomy. No adnexal mass lesions. S ubcentimeter bilateral inguinal chain lymph nodes measure within the upper limits of normal in size. No bowel obstruction or bowel wall thickening. Moderate fecal retention. The appendix is not definiti vely seen. Unremarkable soft tissues. No acute fracture identified. IMPRESSION: 1. No acute intra-abdominal or intrapelvic abnormality. 2. Atherosclerotic vascular disease with multifocal arterial stenosis as above, high-grade at the lef t iliac bifurcation. 3. No aneurysm, dissection or arterial occlusion identified. 4. 10 mm subpleural nodule of the basal right lower lobe. 3 month follow-up chest CT recommended. 5. Additional findings as above. ACT 112: Negative or not required by law. The above report was generated using voice recognition software. It may contain grammatical, syntax o r spelling errors. Electronically signed by: Anatoly Calderón M.D. 06/25/2022 11:07 AM
--- NOTE | 2022-06-25 11:36 | Hospitalist Progress Note ---
Date of Service June 25, 2022 Assessment & Plan (1) Stenosis of artery of left lower extremity: Plan: Glenny is a 57-year-old female with a past medical history of SLE, RA who presents with L claudication and darkening of the L foot/toe with dopplers showing monophasic flow and proximal lesion Left lower extremity arterial insufficiency - LEFT LE Doppler: Common femoral artery: Monophasic waveforms. Peak systolic velocity (PSV) 82 cm/s. Deep femoral artery: Monophasic waveforms. PSV 21 cm/s. Superficial femoral artery: Monophasic waveforms. PSV 37 cm/s. Popliteal artery: Monophasic waveforms. PSV 22 cm/s. Anterior tibial artery: Monophasic waveforms. PSV 80 cm/s. Posterior tibial artery: Monophasic waveforms. PSV 22 cm/s. Peroneal artery: Monophasic waveforms. PSV attending cm/s. Dorsalis pedis: Monophasic waveforms. PSV 70 cm/s. External iliac artery: Monophasic waveforms. Peak systolic velocity: 33 cm/s. IMPRESSION: Monophasic waveforms throughout with diminished velocities. Findings compatible with proximal stenosis. - CTA Runoff: pending No leukocytosis - No hx cilastozol use Hemoglobin 10.9 INR: 0.9 Creatinine with normal baseline less than 1 Admitting creatinine 0.67 LDL 56 at goal - POD#0 Stenting of Left External Illiac Artery, performed by Dr Gamboa - easily palpable peripheral pulses following this - No prior hx aspirin use. - Smoking cessation counseling provided. Depression/anxiety Continue duloxetine 90 mg HS SLE rheumatoid arthritis On mycophenolate 500 mg p.o. twice daily, restart - PPI switched to protonix while inpt DVT prophylaxis: Heparin eyes Diet: N.p.o. CODE STATUS: Full (2) Peripheral arterial disease: (3) SLE (systemic lupus erythematosus related syndrome): (4) Rheumatoid arthritis: (5) Chest pain: Plan: EKG with non specific changes. Serial troponin I negative. Consistent with reflux and given famotidine 20mg IV and Maalox with complete relief of pain. Admission and Anticipated Discharge Date Admission Date: June 24, 2022 Subjective Patient seen post operatively with good PT and DP pulses in left foot. No signs of infection. Having bilateral back pain when seen. Developed chest pain 30 minutes after first seen. Associated burping. Lying down flat in bed post operatively. Reports prior history of reflux and this feels similar. Review of Systems Review of Systems: All systems reviewed & are unremarkable except as noted in Subjective Physical Exam Constitutional: WD/WN, vitals as above Eyes: + anicteric sclerae; normal pupil size ENMT: external ear and nose normal, oropharynx normal Neck: trachea midline, no thyromegaly Respiratory: normal respiratory effort, lungs clear to auscultation Cardiovascular: RRR, no murmur, no edema Vessels: posterior tibial pulses present (b/l, easily palpable) and dorsalis pedis pulses present (b/l easily palpable) Extremities: normal capillary refill; no pedal edema Gastrointestinal (Abdomen): normal bowel sounds, soft, nontender, no hepatosplenomegaly Musculoskeletal: no cyanosis or clubbing, extremities motor strength 5/5 Skin: blue tinge to skin on end of toes on left foot Neurologic: moves all extremities and awake; not confused Psychiatric: A+Ox3, euthymic affect Genitourinary: + CVA tenderness (bilateral, resolved in evening) Results & Data Results & Data ([facility]) Vital Signs (Past 12 Hours) Vital Signs Temp Pulse Pulse Resp BP Pulse Ox O2 Del Method 06/25/22 11:10 36.5 C 58 L 16 163/76 H 96 Room Air 06/25/22 10:55 36.5 C 60 16 177/73 H 96 Room Air 06/25/22 10:40 36.7 C 70 18 180/72 H 97 Room Air 06/25/22 10:32 74 16 187/89 H 98 Room Air 06/25/22 10:27 72 16 190/89 H 99 Oxymask 06/25/22 10:25 73 16 184/90 H 99 Oxymask 06/25/22 10:20 73 16 192/88 H 99 Oxymask 06/25/22 10:10 74 16 192/98 H 99 Oxymask 06/25/22 10:05 75 16 198/90 H 99 Oxymask 06/25/22 10:15 75 16 195/91 H 99 Oxymask 06/25/22 10:00 68 16 141/69 H 99 Oxymask 06/25/22 09:55 71 16 135/64 99 Oxymask 06/25/22 09:50 69 18 135/64 96 Oxymask 06/25/22 09:45 69 18 168/78 H 96 Oxymask 06/25/22 09:40 66 18 170/77 H 96 Oxymask 06/25/22 09:24 36.7 C 55 L 18 132/66 95 Room Air 06/25/22 08:14 36.7 C 68 16 138/69 98 Room Air O2 Flow Rate 06/25/22 11:10 06/25/22 10:55 06/25/22 10:40 06/25/22 10:32 06/25/22 10:27 4 06/25/22 10:25 4 06/25/22 10:20 4 06/25/22 10:10 4 06/25/22 10:05 4 06/25/22 10:15 4 06/25/22 10:00 4 06/25/22 09:55 4 06/25/22 09:50 4 06/25/22 09:45 4 06/25/22 09:40 4 06/25/22 09:24 06/25/22 08:14 PG Care Time/CCT Total # of Minutes Spent Total Time Spent with Patient: Total time spent is greater than 50% in coordination of care (as documented) at patient's floor/unit and/or counseling patient: Coding Level of Care Code 13679 Subseq Hosp Care Lvl 3 Diagnoses Stenosis of artery of left lower extremity I70.202 Peripheral arterial disease I73.9 SLE (systemic lupus erythematosus related syndrome) M32.9 Rheumatoid arthritis M06.9 Chest pain R07.9
[2022-06-25] MEDS ORDERED: ALUMINUM/MAGNESIUM SUSP 30 ML UDC PO STA (12:06)
[2022-06-25] MEDS ORDERED: FAMOTIDINE 20 MG in SYRINGE 3 ML IV ONE (12:30)
[2022-06-25] MEDS: lisinopril 10 MG TAB PO SCH (12:40)
[2022-06-25] MEDS: CHOLECALCIFEROL 5,000 UNITS 125 MCG TAB PO SCH (12:41)
[2022-06-25] MEDS: MYCOPHENOLATE MOFETIL 250 MG CAP PO SCH ×2 (12:41→21:09)
[2022-06-25] MEDS: CETIRIZINE HCL 10 MG TABLET PO SCH (12:41)
[2022-06-25 13:17] LABS: Basophils # (auto) 0.02 K/uL (0-0.2); Basophils % (auto) 0.3 %; Eosinophils # (auto) 0.03 K/uL (0-0.50); Eosinophils % (auto) 0.5 %; Hematocrit (blood only) 33.3 % (34.1-44.9); Hemoglobin 10.7 g/dl (12.0-16.0); Immature Granulocytes # (auto) 0.01 K/uL (0.00-0.02); Immature Granulocytes % (auto) 0.2 %; Lymphocytes % (auto) 29.7 %; Mean Corpuscular Hemoglobin 28.9 pg (25.0-34.0); Mean Corpuscular Hgb Conc 32.1 g/dL (32.0-36.0); Mean Platelet Volume 10.9 fL (9.4-12.3); Monocytes # (auto) 0.25 K/uL (0.24-0.82); Monocytes % (auto) 4.4 %; Neutrophils # (auto) 3.71 K/uL (1.4-6.5); Neutrophils % (auto) 64.9 %; Platelet Count 164 K/uL (130-400); RDW Coefficient of Variation 14.1 % (11.5-14.5); RDW Standard Deviation 45.5 fL (36.4-46.3); White Blood Count 5.72 K/ul (4.8-10.8)
--- NOTE | 2022-06-25 13:43 | Electrocardiogram Report ---
Test Reason : Blood Pressure : / mmHG Vent. Rate : 068 BPM Atrial Rate : 068 BPM P-R Int : 132 ms QRS Dur : 092 ms QT Int : 410 ms P-R-T Axes : 029 017 021 degrees QTc Int : 435 ms Normal sinus rhythm Nonspecific T wave abnormality Abnormal ECG No previous ECGs available Confirmed by Tom Johns ([id number]) on 06/25/2022 1:43:01 PM Referred By: Matthew Dudley Confirmed By:Tom Johns
[2022-06-25 13:52] LABS: Troponin I High Sensitivity 3.7 pg/ml (0-14)
[2022-06-25 14:14] LABS: BUN Creatinine Ratio 17.7 (10-20); Calcium 9.1 mg/dl (8.5-10.1); Creatinine Clr Calc Pharmacy 77.4 ml/min; Est GFR (African American) 117.7 ml/min; Est GFR (Non-African American) 101.5 ml/min; Potassium 3.9 mmol/L (3.5-5.1)
--- NOTE | 2022-06-25 14:51 | Communication Note ---
Date of Service: June 25, 2022 Most likely can be d/c tomorrow on plavix
[2022-06-25 15:52] LABS: Partial Thromboplastin Time 26.7 Seconds (21.0-31.0)
[2022-06-25] MEDS ORDERED: OMEPRAZOLE 20 MG PO SCH (21:00)
[2022-06-25] MEDS ORDERED: TIZANIDINE 4 MG PO SCH (21:00)
[2022-06-25] MEDS: MELATONIN 3 MG TAB PO PRN (21:12)
[2022-06-25] MEDS ORDERED: ALUMINUM/MAGNESIUM SUSP 30 ML UDC PO PRN (23:02)
[2022-06-26 08:39] LABS: Basophils # (auto) 0.01 K/uL (0-0.2); Basophils % (auto) 0.2 %; Eosinophils # (auto) 0.03 K/uL (0-0.50); Eosinophils % (auto) 0.5 %; Hematocrit (blood only) 33.7 % (34.1-44.9); Hemoglobin 11.2 g/dl (12.0-16.0); Immature Granulocytes # (auto) 0.02 K/uL (0.00-0.02); Immature Granulocytes % (auto) 0.4 %; Lymphocytes # (auto) 1.57 K/uL (1.2-3.4); Lymphocytes % (auto) 28.6 %; Mean Corpuscular Hemoglobin 29.3 pg (25.0-34.0); Mean Corpuscular Hgb Conc 33.2 g/dL (32.0-36.0); Mean Corpuscular Volume 88.2 fL (80.0-100.0); Monocytes # (auto) 0.42 K/uL (0.24-0.82); Monocytes % (auto) 7.7 %; Neutrophils # (auto) 3.44 K/uL (1.4-6.5); Neutrophils % (auto) 62.6 %; Platelet Count 169 K/uL (130-400); RDW Coefficient of Variation 13.9 % (11.5-14.5); Red Blood Count 3.82 M/uL (3.93-5.22); White Blood Count 5.49 K/ul (4.8-10.8)
[2022-06-26] MEDS ORDERED: CLOPIDOGREL BISULFATE 75 MG TAB PO SCH (09:00)
[2022-06-26 09:18] LABS: BUN Creatinine Ratio 19.2 (10-20); Calcium 9.5 mg/dl (8.5-10.1); Creatinine Clr Calc Pharmacy 65.7 ml/min; Est GFR (African American) 107.5 ml/min; Est GFR (Non-African American) 92.7 ml/min; Potassium 4.2 mmol/L (3.5-5.1)
[2022-06-26] MEDS: lisinopril 10 MG TAB PO SCH (09:20)
[2022-06-26] MEDS: CETIRIZINE HCL 10 MG TABLET PO SCH (09:20)
[2022-06-26] MEDS: CHOLECALCIFEROL 5,000 UNITS 125 MCG TAB PO SCH (09:20)
[2022-06-26] MEDS: MYCOPHENOLATE MOFETIL 250 MG CAP PO SCH (09:21)
--- NOTE | 2022-06-26 10:41 | Surgery Progress Note ---
Date of Service June 26, 2022 Assessment & Plan (1) Aortoiliac occlusive disease: Plan: Pt doing well s/p L ext iliac art stenting. OK for d/c from vascular standpoint. WIll need plavix as outpt. Will follow up in office in a few weeks. Discussed smoking cessation. Admission and Anticipated Discharge Date Admission Date: June 24, 2022 Subjective 57 yo f s/p L external iliac stent placement by Dr Gamboa yesterday, seen inf/u today. Pt states LLE is feeling improved, toes have better color. No new complaints. Review of Systems Review of Systems: All systems reviewed & are unremarkable except as noted in HPI & below Physical Exam Constitutional: WD/WN, vitals as above Cardiovascular: Vessels: femoral pulses present, posterior tibial pulses present and dorsalis pedis pulses present Skin: femoral punctures C/D/I, no ecchymosis or erythema Results & Data ([facility]) Vital Signs (Past 12 Hours) Vital Signs Temp Pulse Resp BP Pulse Ox O2 Del Method 06/26/22 07:27 36.8 C 70 16 176/75 H 95 Room Air 06/26/22 04:08 37.2 C 75 16 148/62 H 95 Room Air 06/25/22 23:40 37 C 71 16 145/52 H 97 Room Air
--- NOTE | 2022-06-26 12:53 | Discharge Summary ---
Date of Service June 26, 2022 Admission HPI Per Admitting Provider Glenny is a 57-year-old female with a past medical history of SLE, RA who presents with L claudication and darkening of the L foot/toe with dopplers showing monophasic flow and proximal lesion Per ER record review: 67-year-old female who presents with left leg pain. Symptoms of claudication for approximately 2 months. In the last 1 week has had dark purple/black discoloration of the left foot with worsening pain with an aching sensation. Consistent with prior claudication or pain worsens with ambulation. Foot black and purple since Saturday. Morales doppler on Saturday. Today the discoloration started spreading to top of the foot. No prior history of cardiac disease/SD/CVA Per Pt: Started having pain in her calves in May this year. Since Saturday her foot started turning darker and more purple Not sure if it darkens when hanging over the bed. When she walks the foot gets much darker in color CUrrently 4th digit feels 'like its going to blow up' Pain in her calf occurs when she is ambulating, OK at rest. With rest calf pain gradually recedes. Can walk 20-40 yards before pain starts to set into mid L calf and then spreads proximally. At bedside foot coloration is actually improving and more pink/warm. No history of SD/Strokes/Blood Clots Endorses hx of renauds and tobacco ise Med Review: On cellcept for 5-6 years. Previously on MTX stopped for fatigue. NO DM. No CKD/kidney disease. Duloxetine 90mg NO more Linzess NO meloxicam Melatonin qus Prilosec --> protonix while inpt 500mg Cellcept AM and PM --> increased from 250mg BID since last hx Zanaflex 4mg BID Zy PRNrtek Vitamin D3 1-3000u d Medical History: Reviewed Medications: Reviewed Surgical History: Reviewed Allergies: Reviewed Social History:Endorses current cigarette use. 1pack per 3 days, ~40 year history. No alcohol use. No recreational drug use. Code Status: Full Code Principal Diagnosis Left external iliac artery occlusion Discharge Exam Constitutional WD/WN, vitals as above Eyes + anicteric sclerae; normal pupil size Respiratory normal respiratory effort, lungs clear to auscultation Cardiovascular RRR, no murmur, no edema Vessels: posterior tibial pulses present (b/l, easily palpable) and dorsalis pedis pulses present (b/l easily palpable) Extremities: normal capillary refill; no pedal edema Gastrointestinal (Abdomen) normal bowel sounds, soft, nontender, no hepatosplenomegaly Musculoskeletal no cyanosis or clubbing, extremities motor strength 5/5 Neurologic moves all extremities and awake; not confused Psychiatric A+Ox3, euthymic affect Genitourinary no CVA tenderness Discharge Data Allergies Allergy/AdvReac Type Severity Reaction Status Date / Time morphine Allergy Intermediate Swelling Verified 06/24/22 16:25 of Lip/Tongue/Throat aspirin Allergy Unknown NOSE BLEEDS Verified 02/11/17 13:41 Bactrim Allergy Unknown HIVES Verified 02/11/17 13:41 sulfamethoxazole [Bactrim] Allergy Unknown HIVES Verified 06/24/22 16:25 trimethoprim [Bactrim] Allergy Unknown HIVES Verified 06/24/22 16:25 Consultations 06/24/22 16:21 ED Decision to Admit Stat 06/24/22 18:45 Consult Vascular Surgery Routine Procedures Performed Operation Date: 06/25/22 09:40 Actual Procedures p Stenting of Left External Illiac Artery, Ultrasound Localization of Bilateral Femoral Arteries, Mechanical Closure of Bilateral Femoral Arteries, Moderate Sedation [id number](Bilateral) - Osito Gamboa MD Ordered Studies 06/24/22 12:20 US leg [US arterial duplex LE LT] Stat IMPRESSION: Monophasic waveforms throughout with diminished velocities. Findings compatible with proximal stenosis. 06/24/22 14:51 CTA abd aorta runof w con [CT ang AA runof w inc wo ifdon] Urgent IMPRESSION: 1. No acute intra-abdominal or intrapelvic abnormality. 2. Atherosclerotic vascular disease with multifocal arterial stenosis as above, high-grade at the left iliac bifurcation. 3. No aneurysm, dissection or arterial occlusion identified. 4. 10 mm subpleural nodule of the basal right lower lobe. 3 month follow-up chest CT recommended. 5. Additional findings as above. 06/25/22 08:50 EV angio LE LT Routine US EV guide vascular access Routine Hospital Course (1) Stenosis of artery of left lower extremity: Glenny Silva is a 57 year old female admitted to [facility] from June 24 - 2021 due to left leg arterial insufficiency. She was diagnosed with left iliac artery occlusion which was treated initially with a heparin intravenous drip and then left external iliac stent performed by Dr Gamboa. She did well post operatively and is now medically stable for discharge. Discussed smoking cessation with the patient. She was started on clopidogrel to resuce the risk of in stent thrombosis. She had heartburn following the procedure. This was treated with famotidine and Maalox and switching her usual omeprazole to pantoprazole per hospital formulary. Recommended she followed up with her primary care provider regarding this. (2) Peripheral arterial disease: (3) SLE (systemic lupus erythematosus related syndrome): (4) Rheumatoid arthritis: (5) Chest pain: Total Time Total Time Spent Total Time Spent (In Minutes): 35 Discharge Plan Discharge Items Patient Disposition: Home - Self-Care Reason For Visit: LLE ARTERIAL INSUFFICIENCY/CLAUDICATION Discharge Diagnosis: Left external iliac artery occlusion Activity: Resume your previous activity Lifting: Gradually increase as tolerated Non-emergency contact: Surgeon Call non-emergency contact if: you have any medication questions and your symptoms worsen Follow-up/Referrals: Matthew Dudley [Primary Care Provider] - Osito Gamboa MD [Physician] - ('s office will call patient with appointment date and time.) Diet: Heart Healthy Addtl Attending Provider Instructions: You were admitted to [facility] from June 24 - 2021 due to left leg arterial insufficiency. You were diagnosed with left iliac artery occlusion which was treated initially with a heparin intravenous drip and then left external iliac stent performed by Dr Gamboa. You did well post operatively and are now medically stable for discharge. You had heartburn following the procedure. This was treated with famotidine and Maalox. Please follow up with your primary care provider if you continue to have heartburn despite your usual omeprazole use as this would be an indication for EGD. Pending Studies at Discharge: No Stand-Alone Forms: [facility], Work/School Release, Smoking Cessation Medications and DC Order Prescriptions: New clopidogrel 75 mg tablet 75 mg PO DAILY Qty: 30 0RF Continued DULOXETINE HCL (CYMBALTA) 60 MG capsule 60 mg PO HS Qty: 0 Label Comments: TAKE ONE 60 MG CAPSULE ALONG WITH ONE 30 MG CAPSULE TO EQUAL 90 MG DAILY DOSE Rx Instructions: total 90mg daily dose MELATONIN (MELATONIN MAXIMUM STRENGT) 5 MG tablet 5 mg PO HS Qty: 0 MYCOPHENOLATE MOFETIL (CELLCEPT) 250 MG capsule 500 mg PO BID Qty: 0 OMEPRAZOLE (PRILOSEC) 20 MG CONTR REL CAP 20 mg PO HS Qty: 0 CETIRIZINE HCL (ZYRTEC) 10 MG tablet 10 mg PO QAM Qty: 0 Cholecalciferol (Vitamin D) 1,000 UNIT tablet 5,000 inter.unit PO QAM Qty: 0 Duloxetine HCl (Cymbalta) 30 MG capsule 30 mg PO HS Qty: 0 Label Comments: TAKE ONE 30 MG CAPSULE ALONG WITH ONE 60 MG CAPSULE TO EQUAL 90 MG DAILY DOSE Rx Instructions: total 90mg daily dose lisinopril 10 mg tablet 10 mg PO QAM Discharge Orders: Discharge Order (Routine); Ordered 06/26/22 Ordered By: Galen Castro/Other Patient Handouts: Understanding Circulation Admission Data Admit Date/Time: 06/24/22 16:49 Attending Provider: Galen Ross Admit Provider: Alexander Earl Primary Care Provider: Matthew Dudley Other Providers: Alexander Earl ; Osito Gamboa Other Interventions: Discharge Summary Assessment (RN) Last Done: 06/26/22 13:35 Coding Level of Care Code D/C DAY MANAGEMENT >30 MINS Diagnoses Stenosis of artery of left lower extremity I70.202 Peripheral arterial disease I73.9 SLE (systemic lupus erythematosus related syndrome) M32.9 Rheumatoid arthritis M06.9 Chest pain R07.9
[2022-06-26] MEDS ORDERED: PANTOprazole 40 MG TAB PO SCH (21:00)
[2022-06-26] MEDS ORDERED: DULoxetine HCL 30 MG CAP PO SCH (21:00)
== END 2022-06-26 14:48 | disposition home or self-care (01) | DRG 254 ==
LOC: ED 11:47 → SUATTDRO 16:49 → 3W 16:49

== ENCOUNTER 2024-07-15 14:46 | Inpatient (IN) ==
--- NOTE | 2024-07-15 14:59 | Emergency Department Note ---
Impression & Plan Myocarditis, Chest pain ED Provider Note NAME: RALPH VEGA AGE: 59 SEX: F : 1965 ARRIVES VIA: Ambulance INFORMANT: [Patient][, ] family at bedside ED PROVIDER(S): Hector Cardenas MD CHIEF COMPLAINT: Chest pain, outpatient referral MEDICAL DECISION MAKING: Patient presented due to concern for chest pains. The patient did have a single elevation in V2 but after discussion with the patient the patient had pleuritic pain that seemed to camila without taking a big deep breath and the patient was also febrile so CT angiography of the chest was ordered along with IV and blood work. Patient did receive aspirin upon arrival. Blood work shows a normal white count hemoglobin of 11. The patient's platelet count is unremarkable. Kidney function unremarkable with a sodium 133. Initial troponin of 32.7. I did order repeat EKG which still showed single elevation in V2. I did receive a secure [place] message from Dr. Donaldson with radiology who asked with the patient could be having an acute or subacute FL. I did discuss that this was a possibility however, the patient had an atypical presentation and also had associated fever and pleuritic pain. He did mention that myocarditis is also a possibility but did notice abnormal changes of the left ventricle. I did speak to the on-call hollow ware maker who did review the patient's EKGs as well as CTs. After further discussion he believes that heparin can be held at this time and believes most likely cause would be pericarditis or myocarditis. I did inform the patient of this finding. The patient has no chest pain at rest along with a big deep breath. The patient also had commented that she cannot lay on her left side which may also lead to more perimyocarditis. He did speak the on-call hospitalist service and the patient was admitted to the medicine service. Discussion w/ other healthcare providers: Dr. Donaldson with radiology Dr. Maddox interventional cardiology Dr. Earl inpatient medicine service Prior /Outside records reviewed: [none] Differential diagnosis: Cardiac ischemia, aortic dissection, pulmonary embolism, pneumothorax, pneumonia, pericarditis, myocarditis, GERD, cholecystitis, pancreatitis, musculoskeletal, as well as other pathologies were considered. Diagnostics, as interpreted by me: ECG: Sinus tachycardia, rate of 112, normal intervals, normal axis, single elevation in V2 not overtly present in V3 or V1. No obvious reciprocal changes. Elevation in V2 does appear to be new from comparison from June 25, 2022. The patient did have T wave inversions in the lateral leads which appear improved today when compared to EKG June 25, 2022. Cardiac monitoring: An order was placed for continuous cardiac monitoring. The monitor shows a rate of 112 with tachycardic and regular rhythm. [Patient was placed on pulse oximetry] Medical decision rules: [none] Imaging studies: [I informally interpreted the patient's CT head does not show obvious ICH with formal report to follow.] [] HPI: Patient presents due to concern for chest pains. The patient states that she was referred from her PCP office earlier today. The patient originally made this appointment just for a follow-up for medication refill but states that she woke up this morning around 4 AM and did have some chest pain and she had gotten up to walk to the bathroom and then woke up on the floor had urinated on herself. Patient is unsure as to whether or not she had any seizure but does not think so. The patient does not have any headache but has felt a sort of "fogginess." Patient denies any posterior neck pain. The patient states that she does have chest pain difficulty with taking a big deep breath pleuritic chest pain and has had some numbness in the left upper extremity. Patient denies any prior history of FL. The patient denies any prior history of known heart disease. The patient denies any prior history of DVT or PE but has had a history of PAD for which she does have a stent to the left lower extremity. Patient also does report that she cannot lay on her left side or she has worsening pain. PAST MEDICAL HISTORY: [See Below] PAST SURGICAL HISTORY: [See Below] SOCIAL HISTORY: [See Below] HOME MEDICATIONS: [See Below] ALLERGIES: [See Below] VITALS: [See Below] PHYSICAL EXAMINATION: GENERAL: NAD, non-toxic. Wearing glasses. EYE EXAM: Normal conjunctiva. PERRL, no anisocoria and EOM's grossly intact w/o pain. OROPHARYNX: Moist mucus membranes, grossly normal dentition. NECK: Trachea midline, no stridor. LUNGS: Clear to auscultation. Normal chest wall mechanics. HEART: Tachycardic and regular, no MRG. ABDOMEN: Abdomen soft, non-tender, no masses, no rebound or guarding. BACK: No CVA TTP. SKIN: No rashes and no bruising. UPPER EXTREMITIES: Upper extremities are grossly normal. LOWER EXTREMITIES: Grossly normal, no edema. Well-perfused in lower extremities. Negative Homans' sign no obvious leg swelling or asymmetry. NEURO EXAM: A&O x3, cranial nerves II-XII grossly intact, normal speech, moves all 4 extremities. Past Med/Surg History Problem List (Updated 07/15/24 @ 22:55 by Hector Cardenas MD) Myocarditis (Acute) Chest pain (Acute) Aortoiliac occlusive disease Arterial insufficiency of lower extremity (Acute) Chronic anemia (Acute) Leukopenia (Acute) H/O: hysterectomy w oopherectomy for endometriosis Peripheral arterial disease Stenosis of artery of left lower extremity (Acute) SLE (systemic lupus erythematosus related syndrome) Rheumatoid arthritis Left arm cellulitis Left upper extremity swelling Social History Smoking Status: Former smoker Tobacco Type: Cigarettes Smoking End Date: September 2022; Hx Alcohol Use: No Hx Substance Use: No Preferred Language: Malagasy Communication Ability: Effective Chicken Catcher Required: No Beliefs That Will Affect Care: None Current Living Situation: Family Current Living Situation Comment: with mother and son Other Information That Helps Us Care for You: No Feels Safe at Home: Yes Safety Concerns: Feels Safe At This Time Assistive Devices: Glasses Allergies Allergies Allergy/AdvReac Type Severity Reaction Status Date / Time morphine Allergy Intermediate Swelling Verified 06/24/22 16:25 of Lip/Tongue/Throat aspirin Allergy Unknown NOSE BLEEDS Verified 02/11/17 13:41 Bactrim Allergy Unknown HIVES Verified 02/11/17 13:41 sulfamethoxazole [Bactrim] Allergy Unknown HIVES Verified 06/24/22 16:25 trimethoprim [Bactrim] Allergy Unknown HIVES Verified 06/24/22 16:25 Home Meds Home Medications Medication Instructions Recorded Confirmed duloxetine 60 mg capsule,delayed 60 mg PO HS ##0 12/08/16 07/15/24 release sprinkle melatonin 10 mg PO HS ##0 12/08/16 07/15/24 mycophenolate mofetil 500 mg tablet 500 mg PO BID ##0 12/08/16 07/15/24 omeprazole 20 mg capsule,delayed 20 mg PO HS ##0 03/04/17 10/09/24 release Vitamin D3 1,000 unit PO QAM ##0 02/01/17 07/15/24 cetirizine 10 mg tablet 10 mg PO QAM ##0 02/01/17 07/15/24 duloxetine 30 mg capsule,delayed 30 mg PO HS #0 caps 11/29/17 07/15/24 release lisinopril 10 mg tablet 10 mg PO UD 06/25/22 07/15/24 albuterol sulfate 90 mcg/actuation 2 puff inhalation .Q4-6H PRN 07/15/24 07/15/24 aerosol inhaler cough/sob/wheezing aspirin 81 mg tablet,delayed 81 mg PO DAILY 07/15/24 07/15/24 release diclofenac potassium 50 mg tablet 50 mg PO BID 07/15/24 07/15/24 fluticasone propionate 50 1 spray intranasal BID 07/15/24 07/15/24 mcg/actuation nasal spray,suspension Results & Data (ED) Vital Signs Vital Signs - 24 hr 07/15/24 15:01 07/15/24 15:01 07/15/24 15:01 Temperature 37.9 C H 37.9 C H Temperature Source Oral Oral Pulse Rate 107 H Pulse Rate [Apical] 107 H Respiratory Rate 18 18 Respiratory Effort / Characteristics Non-Labored Spontaneous Non-Labored Spontaneous Respiratory Depth Normal Normal Respiratory Pattern Blood Pressure 145/88 H Blood Pressure [Right Arm] 145/88 H Blood Pressure Mean 107 Blood Pressure Mean [Right Arm] 107 Blood Pressure Position [Right Arm] Semi-fowlers Pulse Oximetry 97 97 97 Oxygen Delivery Method Room Air Room Air Room Air Sepsis Recent Fever Within 48 Hours Yes Sepsis New/Unexplained Change in Mental Status N/A Sepsis Action Taken by Nursing No Action Required 07/15/24 15:13 07/15/24 15:35 07/15/24 15:35 Temperature Temperature Source Pulse Rate 112 H 99 H Pulse Rate [Apical] 96 H Respiratory Rate 20 28 H Respiratory Effort / Characteristics Non-Labored Spontaneous Respiratory Depth Normal Respiratory Pattern Regular Blood Pressure Blood Pressure [Right Arm] 166/94 H Blood Pressure Mean Blood Pressure Mean [Right Arm] 118 Blood Pressure Position [Right Arm] Semi-fowlers Pulse Oximetry 98 95 Oxygen Delivery Method Room Air Room Air Sepsis Recent Fever Within 48 Hours Sepsis New/Unexplained Change in Mental Status Sepsis Action Taken by Nursing 07/15/24 15:43 07/15/24 15:45 07/15/24 15:51 Temperature Temperature Source Pulse Rate 95 H 93 H Pulse Rate [Apical] Respiratory Rate 21 24 Respiratory Effort / Characteristics Respiratory Depth Respiratory Pattern Blood Pressure 155/75 H Blood Pressure [Right Arm] Blood Pressure Mean 107 Blood Pressure Mean [Right Arm] Blood Pressure Position [Right Arm] Pulse Oximetry 100 99 Oxygen Delivery Method Room Air Room Air Sepsis Recent Fever Within 48 Hours Sepsis New/Unexplained Change in Mental Status Sepsis Action Taken by Nursing 07/15/24 15:57 07/15/24 16:00 07/15/24 16:12 Temperature Temperature Source Pulse Rate 96 H 99 H Pulse Rate [Apical] Respiratory Rate 20 24 Respiratory Effort / Characteristics Respiratory Depth Respiratory Pattern Blood Pressure 143/78 H Blood Pressure [Right Arm] Blood Pressure Mean 94 Blood Pressure Mean [Right Arm] Blood Pressure Position [Right Arm] Pulse Oximetry 99 98 Oxygen Delivery Method Room Air Room Air Sepsis Recent Fever Within 48 Hours Sepsis New/Unexplained Change in Mental Status Sepsis Action Taken by Nursing 07/15/24 16:21 07/15/24 16:31 07/15/24 16:48 Temperature Temperature Source Pulse Rate 97 H 92 H Pulse Rate [Apical] Respiratory Rate 23 Respiratory Effort / Characteristics Respiratory Depth Respiratory Pattern Blood Pressure 146/88 H Blood Pressure [Right Arm] Blood Pressure Mean 112 Blood Pressure Mean [Right Arm] Blood Pressure Position [Right Arm] Pulse Oximetry 97 97 Oxygen Delivery Method Room Air Room Air Sepsis Recent Fever Within 48 Hours Sepsis New/Unexplained Change in Mental Status Sepsis Action Taken by Nursing 07/15/24 16:51 07/15/24 16:54 07/15/24 17:00 Temperature Temperature Source Pulse Rate 92 H 96 H Pulse Rate [Apical] Respiratory Rate 14 16 Respiratory Effort / Characteristics Respiratory Depth Respiratory Pattern Blood Pressure 141/75 H Blood Pressure [Right Arm] Blood Pressure Mean 87 Blood Pressure Mean [Right Arm] Blood Pressure Position [Right Arm] Pulse Oximetry 97 98 Oxygen Delivery Method Room Air Room Air Sepsis Recent Fever Within 48 Hours Sepsis New/Unexplained Change in Mental Status Sepsis Action Taken by Nursing 07/15/24 17:06 07/15/24 17:18 07/15/24 17:27 Temperature Temperature Source Pulse Rate 91 H 90 87 Pulse Rate [Apical] Respiratory Rate 25 H 25 H 14 Respiratory Effort / Characteristics Respiratory Depth Respiratory Pattern Blood Pressure Blood Pressure [Right Arm] Blood Pressure Mean Blood Pressure Mean [Right Arm] Blood Pressure Position [Right Arm] Pulse Oximetry 97 Oxygen Delivery Method Room Air Sepsis Recent Fever Within 48 Hours Sepsis New/Unexplained Change in Mental Status Sepsis Action Taken by Nursing 07/15/24 17:30 Temperature Temperature Source Pulse Rate Pulse Rate [Apical] Respiratory Rate Respiratory Effort / Characteristics Respiratory Depth Respiratory Pattern Blood Pressure 112/78 Blood Pressure [Right Arm] Blood Pressure Mean 86 Blood Pressure Mean [Right Arm] Blood Pressure Position [Right Arm] Pulse Oximetry Oxygen Delivery Method Sepsis Recent Fever Within 48 Hours Sepsis New/Unexplained Change in Mental Status Sepsis Action Taken by Residential Medications Current Medication List: was personally reviewed by me Laboratory Data Attestation: I reviewed the patient's lab results. 07/15/24 15:02 07/15/24 15:02 Lab Results 07/15/24 07/15/24 07/15/24 Range/Units 15:02 15:45 17:21 WBC 7.03 (4.8-10.8) K/ul RBC 4.16 L (4.20-5.40) M/uL Hgb 11.0 L (12.0-16.0) g/dl Hct 34.5 L (37.0-47.0) % MCV 82.9 (80.0-100.0) fL MCH 26.4 (25.0-34.0) pg MCHC 31.9 L (32.0-36.0) g/dL RDW Std Deviation 41.8 (36.4-46.3) fL RDW Coeff of Shey 13.9 (11.5-14.5) % Plt Count 194 (130-400) K/uL MPV 10.6 (9.4-12.4) fL Immature Gran % (Auto) 0.4 % Neut % (Auto) 77.4 % Lymph % (Auto) 13.8 % [place] % (Auto) 8.0 % Eos % (Auto) 0.1 % Baso % (Auto) 0.3 % Neut # (Auto) 5.44 (1.40-6.50) K/uL Lymph # (Auto) 0.97 L (1.20-3.40) K/uL [place] # (Auto) 0.56 (0.11-0.59) K/uL Eos # (Auto) 0.01 (0.00-0.50) K/uL Baso # (Auto) 0.02 (0.00-0.20) K/uL Immature Gran # (Auto) 0.03 (0.01-0.20) K/uL RBC Morphology Unremarkable PT 10.4 (9.0-12.0) Seconds INR 1.0 (0.9-1.1) APTT 25 (21-31) Seconds PTT Ratio 0.9 Sodium 133 L (136-145) mmol/L Potassium 4.5 (3.5-5.1) mmol/L Chloride 101 (98-107) mmol/L Carbon Dioxide 27 (21-32) mmol/L Anion Gap 5 (3-11) BUN 11 (6-23) mg/dl Creatinine 0.71 (0.6-1.2) mg/dl Est Cr Clr Drug Dosing 52.3 ml/min eGFR 99.11 BUN/Creatinine Ratio 15.5 (10-20) Glucose 100 H (70-99(Fasting)) mg/dl Calcium 9.8 (8.6-10.3) mg/dl Total Bilirubin 0.8 (0.2-1.0) mg/dl AST 23 (13-39) U/L ALT 18 (7-52) U/L Alkaline Phosphatase 71 (34-104) U/L Troponin I High Sens 32.7 H 11.4 D (0-14) pg/ml C-Reactive Protein 5.63 H (0-0.5) mg/dl Total Protein 8.6 H (6.0-8.3) gm/dl Albumin 4.3 (3.4-5.0) gm/dl Globulin 4.3 H (2.5-4.0) gm/dl Albumin/Globulin Ratio 1.0 (0.9-2) Lipase 19 (11-82) U/L Adenovirus (PCR) Not Detected (NotDetected) Anaplasma Smear See Comment Babesia Smear See Comment B. pertussis DNA (PCR) Not Detected (NotDetected) B.parapertussis DNA PCR Not Detected (NotDetected) Lyme Disease Screen Negative (Negative) C. pneumoniae DNA (PCR) Not Detected (NotDetected) Coronavirus OC43 (PCR) Not Detected (NotDetected) Coronavirus HKU1 (PCR) Not Detected (NotDetected) Coronavirus 229E (PCR) Not Detected (NotDetected) SARS-CoV-2 (PCR) Not Detected (NotDetected) Coronavirus NL63 (PCR) Not Detected (NotDetected) Monoscreen Negative (Negative) Human Metapneumovir PCR Not Detected (NotDetected) Influenza Type A (PCR) Not Detected (NotDetected) Influenza Type B (PCR) Not Detected (NotDetected) M. pneumoniae (PCR) Not Detected (NotDetected) Parainfluenza 1 (PCR) Not Detected (NotDetected) Parainfluenza 2 (PCR) Not Detected (NotDetected) Parainfluenza 3 (PCR) Not Detected (NotDetected) Parainfluenza 4 (PCR) Not Detected (NotDetected) RSV (PCR) Not Detected (NotDetected) Entero/Rhino (PCR) Not Detected (NotDetected) Administered Medications Colchicine (Colchicine 0.6 Mg Tab) 0.6 mg PO BID KAITLYNN Stop: 08/14/24 21:44 Last Admin: 07/15/24 22:34 Dose: 0.6 mg Documented By: [id number] Diclofenac Sodium (Diclofenac Sodium 25 Mg Tabdr) 50 mg PO BID KAITLYNN Stop: 08/14/24 20:59 Last Admin: 07/15/24 21:15 Dose: 50 mg Documented By: [id number] Duloxetine HCl (Duloxetine Hcl 30 Mg Cap) 30 mg PO HS KAITLYNN Stop: 08/14/24 20:59 Last Admin: 07/15/24 21:15 Dose: 30 mg Documented By: [id number] Duloxetine HCl (Duloxetine Hcl 60 Mg Cap) 60 mg PO HS KAITLYNN Stop: 08/14/24 20:59 Last Admin: 07/15/24 21:15 Dose: 60 mg Documented By: [id number] Enoxaparin Sodium (Enoxaparin Inj 40 Mg/0.4 Ml Syr) 40 mg SQ Q24H KAITLYNN Stop: 08/14/24 20:59 Last Admin: 07/15/24 21:14 Dose: 40 mg Documented By: [id number] Fluticasone Propionate (Fluticasone Propionate Na Spr 16 Gm Btl) 1 sprays NA BID KAITLYNN Stop: 08/14/24 20:59 Last Admin: 07/15/24 21:15 Dose: 1 sprays Documented By: [id number] Melatonin (Melatonin 3 Mg Tab) 9 mg PO HS KAITLYNN Stop: 08/14/24 20:59 Last Admin: 07/15/24 21:15 Dose: 9 mg Documented By: [id number] Mycophenolate Mofetil (Mycophenolate Mofetil 250 Mg Cap) 500 mg PO BID KAITLYNN Stop: 08/14/24 20:59 Last Admin: 07/15/24 21:12 Dose: 500 mg Documented By: [id number] Pantoprazole Sodium (Pantoprazole 40 Mg Tab) 40 mg PO HS KAITLYNN Stop: 08/14/24 20:59 Last Admin: 07/15/24 21:12 Dose: 40 mg Documented By: [id number] Discontinued Medications Sodium Chloride (Nss) 500 mls @ 999 mls/hr IV .Q31M STA Stop: 07/15/24 15:37 Last Infusion: 07/15/24 16:00 Dose: Infused Documented By: Admin: 07/15/24 15:29 Dose: 999 mls/hr Documented By: DEANNA Acetaminophen (Ofirmev) 1,000 mg in 100 mls @ 400 mls/hr IV NOW STA Stop: 07/15/24 15:21 Last Infusion: 07/15/24 16:01 Dose: Infused Documented By: MARIA TERESA Admin: 07/15/24 15:31 Dose: 400 mls/hr Documented By: DEANNA Ibuprofen (Ibuprofen 600 Mg Tab) 600 mg PO Q8H KAITLYNN Stop: 08/14/24 21:44 Last Admin: 07/15/24 22:01 Dose: Not Given Documented By: [id number] Ioversol (Optiray 320 125ml) 116 ml IV ONCE ONE Stop: 07/15/24 15:29 Last Admin: 07/15/24 15:28 Dose: 116 ml Documented By: [id number] Imaging Data Radiologist's Impression: Chest CTA 07/15/24 15:07 CT angio chest PE protocol HISTORY: 59 years-old Female with Chest Pain, eval for PE. Acute chest pain with shortness of breath TECHNIQUE: Multiple CTA images of the chest were obtained after the intravenous administration of 116 ml Optiray. Coronal and sagittal MIPS were obtained from the axial data set and were submitted for review. All measurements were obtained according to NASCET criteria. A dose lowering technique was utilized adhering to the principles of ALARA. COMPARISON: None. FINDINGS: CTA: Mild cardiomegaly. Trace pericardial effusion. There are several epicardial lymph nodes measuring up to 10 x 8 mm on image 78 series 6 and 1.2 x 0.9 cm on image 78. There is thickening throughout the majority of the left ventricular myocardium with decreased subendocardial enhancement within the apical and superolateral sewell. Mild adjacent inflammatory stranding is also noted. No thoracic aortic aneurysm or dissection. No pulmonary emboli. CT CHEST: No dominant thyroid nodule is seen. No pathologically adenopathy by CT size criteria. Mild bilateral groundglass densities, likely atelectatic. Mild bronchial wall thickening. There is no pneumothorax, pleural effusion or focal airspace consolidation. The imaged upper abdominal structures are unremarkable. Spleen is upper limits of normal in size. The osseous structures appear intact. IMPRESSION: 1. No pulmonary emboli identified. 2. There is abnormal appearance of the left ventricular myocardium as above. Differential considerations include an acute or subacute myocardial infarction versus myocarditis. Correlation with serum troponin's, EKG findings and echocardiogram recommended. 3. Trace pericardial effusion with borderline enlarged epicardial lymph nodes. 4. Findings suggestive of bronchitis versus reactive airway disease with mild atelectasis. Findings were discussed with Dr. Hector Cardenas on 07/15/2024 at 4:10 PM. ACT 112: Negative or not required by law. The above report was generated using voice recognition software. It may contain grammatical, syntax or spelling errors. Electronically signed by: Anatoly Calderón M.D. 07/15/2024 4:[address] 07/15/24 15:08 CT SCAN OF THE BRAIN WITHOUT IV CONTRAST CLINICAL HISTORY: Syncope COMPARISON STUDY: No priors. TECHNIQUE: Unenhanced axial CT scan of the brain is performed from the vertex to the skull base. A dose lowering technique was utilized adhering to the principles of ALARA. CT DOSE: 990.3 mGy.cm FINDINGS: Brain parenchyma: The brain parenchyma is normal in appearance. There is no hemorrhage, mass effect, or evidence of acute territorial ischemia by CT criteria. Calloway-white matter differentiation is preserved. No extra-axial fluid collection is seen. Ventricles, sulci, cisterns: Normal in configuration. Intracranial vasculature: The visualized intracranial vasculature at the skull base is normal in appearance. Calvarium: Unremarkable. Sinuses and mastoids: There is trace mucosal thickening in the left maxillary antrum. The remaining visualized paranasal sinuses are clear. The mastoid air cells are well pneumatized. Orbits: The bony orbits are grossly intact. IMPRESSION: There is no hemorrhage, mass effect, or evidence of acute territorial ischemia by CT criteria. ACT 112: Negative or not required by law. Electronically signed by: Bassem Ramos M.D. 07/15/2024 3:34 PM Discharge Plan Visit Data Chief Complaint: Chest Pain Stated Complaint: CHEST PAIN ED Provider: Hector Cardenas Discharge Problem: Myocarditis, Chest pain Patient Disposition: Admitted As Inpatient Discharge Instructions Interventions: ED Discharge Assessment Last Done: 07/15/24 18:34 Discharge Problem: Myocarditis Qualifiers: Myocarditis type: unspecified Chronicity: acute Qualified Code(s): I40.9 - Acute myocarditis, unspecified Chest pain Qualifiers: Chest pain type: chest pain on breathing Qualified Code(s): R07.1 - Chest pain on breathing
[2024-07-15 15:26] LABS: Basophils # (auto) 0.02 K/uL (0.00-0.20); Basophils % (auto) 0.3 %; Eosinophils # (auto) 0.01 K/uL (0.00-0.50); Eosinophils % (auto) 0.1 %; Hematocrit (blood only) 34.5 % (37.0-47.0); Immature Granulocytes # (auto) 0.03 K/uL (0.01-0.20); Immature Granulocytes % (auto) 0.4 %; Lymphocytes # (auto) 0.97 K/uL (1.20-3.40); Lymphocytes % (auto) 13.8 %; Mean Corpuscular Hemoglobin 26.4 pg (25.0-34.0); Mean Corpuscular Hgb Conc 31.9 g/dL (32.0-36.0); Mean Corpuscular Volume 82.9 fL (80.0-100.0); Mean Platelet Volume 10.6 fL (9.4-12.4); Monocytes # (auto) 0.56 K/uL (0.11-0.59); Neutrophils # (auto) 5.44 K/uL (1.40-6.50); Neutrophils % (auto) 77.4 %; Platelet Count 194 K/uL (130-400); RDW Coefficient of Variation 13.9 % (11.5-14.5); RDW Standard Deviation 41.8 fL (36.4-46.3); Red Blood Count 4.16 M/uL (4.20-5.40); White Blood Count 7.03 K/ul (4.8-10.8)
[2024-07-15] MEDS: OPTIRAY 320 125ml IV ONE (15:28)
[2024-07-15] MEDS: SODIUM CHLORIDE 0.9% 500 ML IV STA (15:29)
[2024-07-15] MEDS: ACETAMINOPHEN 1,000 MG/100 ML VIAL IV STA (15:31)
--- NOTE | 2024-07-15 15:35 | CT Scan Report ---
CT SCAN OF THE BRAIN WITHOUT IV CONTRAST CLINICAL HISTORY: Syncope COMPARISON STUDY: No priors. TECHNIQUE: Unenhanced axial CT scan of the brain is performed from the vertex to the skull base. A d ose lowering technique was utilized adhering to the principles of ALARA. CT DOSE: 990.3 mGy.cm FINDINGS: Brain parenchyma: The brain parenchyma is normal in appearance. There is no hemorrhage, mass effect, or evidence of acute territorial ischemia by CT criteria. Calloway-white matter differentiation is preser amy. No extra-axial fluid collection is seen. Ventricles, sulci, cisterns: Normal in configuration. Intracranial vasculature: The visualized intracranial vasculature at the skull base is normal in appe arance. Calvarium: Unremarkable. Sinuses and mastoids: There is trace mucosal thickening in the left maxillary antrum. The remaining v isualized paranasal sinuses are clear. The mastoid air cells are well pneumatized. Orbits: The bony orbits are grossly intact. IMPRESSION: There is no hemorrhage, mass effect, or evidence of acute territorial ischemia by CT yara childers. ACT 112: Negative or not required by law. Electronically signed by: Bassem Ramos M.D. 07/15/2024 3:34 PM
[2024-07-15 15:48] LABS: Albumin Level 4.3 gm/dl (3.4-5.0); BUN Creatinine Ratio 15.5 (10-20); Bilirubin,Total 0.8 mg/dl (0.2-1.0); Calcium 9.8 mg/dl (8.6-10.3); Creatinine Clr Calc Pharmacy 52.3 ml/min; Globulin 4.3 gm/dl (2.5-4.0); Potassium 4.5 mmol/L (3.5-5.1); Total Protein 8.6 gm/dl (6.0-8.3)
[2024-07-15 15:53] LABS: Troponin I High Sensitivity 32.7 pg/ml (0-14)
[2024-07-15 15:55] LABS: Partial Thromboplastin Ratio 0.9; Partial Thromboplastin Time 25 Seconds (21-31); Prothrombin Time 10.4 Seconds (9.0-12.0)
--- NOTE | 2024-07-15 16:15 | CT Scan Report ---
CT angio chest PE protocol HISTORY: 59 years-old Female with Chest Pain, eval for PE. Acute chest pain with shortness of breat h TECHNIQUE: Multiple CTA images of the chest were obtained after the intravenous administration of 116 ml Optiray. Coronal and sagittal MIPS were obtained from the axial data set and were submitted for review. All measurements were obtained according to NASCET criteria. A dose lowering technique was u tilized adhering to the principles of ALARA. COMPARISON: None. FINDINGS: CTA: Mild cardiomegaly. Trace pericardial effusion. There are several epicardial lymph nodes measuring up to 10 x 8 mm on image 78 series 6 and 1.2 x 0.9 cm on image 78. There is thickening throughout the ma jority of the left ventricular myocardium with decreased subendocardial enhancement within the apical and superolateral sewell. Mild adjacent inflammatory stranding is also noted. No thoracic aortic aneurysm or dissection. No pulmonary emboli. CT CHEST: No dominant thyroid nodule is seen. No pathologically adenopathy by CT size criteria. Mild bilateral groundglass densities, likely atelectatic. Mild bronchial wall thickening. There is no pneumothorax, pleural effusion or focal airspace consolidation. The imaged upper abdominal structures are unremarkable. Spleen is upper limits of normal in size. Th e osseous structures appear intact. IMPRESSION: 1. No pulmonary emboli identified. 2. There is abnormal appearance of the left ventricular myocardium as above. Differential considerati ons include an acute or subacute myocardial infarction versus myocarditis. Correlation with serum tro ponin's, EKG findings and echocardiogram recommended. 3. Trace pericardial effusion with borderline enlarged epicardial lymph nodes. 4. Findings suggestive of bronchitis versus reactive airway disease with mild atelectasis. Findings were discussed with Dr. Hector Cardenas on 07/15/2024 at 4:10 PM. ACT 112: Negative or not required by law. The above report was generated using voice recognition software. It may contain grammatical, syntax o r spelling errors. Electronically signed by: Anatoly Calderón M.D. 07/15/2024 4:14 PM
--- NOTE | 2024-07-15 16:27 | History & Physical Report ---
Date of Service July 15, 2024 Assessment & Plan (1) Myocarditis: Plan: Pleuritic chest pain with radiation to the jaw on 07/15 ASA 324mg p.o. given en route Febrile at 37.9 degrees Celsius on arrival BioFire negative on arrival Troponin 32.7-->11.4 on arrival Patient reports she is chest pain free when she does not take deep breaths Deep breaths cause sharp, stabbing pain Chest CT on arrival revealed abnormal left ventricular myocardium which could illustrate acute CO versus myocarditis No evidence of pulmonary emboli Abnormal EKG on arrival; may exhibit ST elevation in V2 ED discussed case with cardiology, who recommended holding heparin at time of admission Clinically, given pleuritic nature of chest pain + fever, suspect this is more in alignment with pericarditis/myocarditis Stat echocardiogram ordered, pending Lyme ordered, pending Supportive care; avoid NSAIDs Cardiology consult appreciated Continuous telemetry monitoring EKG as needed with recurrence / worsening of chest pain A.m. CBC, BMP, CRP, Troponin (2) SLE (systemic lupus erythematosus related syndrome): Plan: Continue mycophenolate (3) Aortoiliac occlusive disease: Plan: S/p left external iliac stent placed in June 2022 Continue aspirin daily (4) Peripheral arterial disease: (5) Chest pain: Plan [facility] Full code Heart healthy diet VTE PPx: Lovenox 40 mg SQ q24h History of Present Illness Chief Complaint: Chest pain Primary Care Provider: Matthew Murrieta is a 59-year-old female with PMH of SLE, peripheral artery disease, and aortoiliac occlusive disease. She presented via EMS on 07/15 from her PCPs office for chest pain with radiation to the jaw and numbness in her left arm. Patient reports she felt fine when she went to bed last night. She has had a sinus infection x 3 weeks, and was feeling excessively fatigued last night so she went to bed around 5 PM. She then woke up around 4 AM to go to the bathroom, and is unsure if she tripped or passed out. She woke up 1 hour later, and noted that she had a bout of urinary incontinence. She was also having trouble breathing when she woke up, as well as pleuritic CP. Her PCP office sent her over out of concern for CO. Patient was given aspirin 325 mg en route via EMS. Patient characterizes her chest pain as "being stabbed in the heart" whenever she lies on her left side; she is fine when she lays on her right side. She is unsure if it is exertional, but does get chest pain at rest whenever she takes deep breaths in. The pain radiates to her jaw bilaterally. Earlier, there was radiation down her left arm, but she is not currently experiencing this now. No PMH of CO or stroke, but patient does have history of femoral artery stent in 2021 secondary to blood clot/PAD (per patient). She has not noticed any rashes, tick bites, or bruises. She denies history of recent alcohol use or IV drug use. She is a former tobacco cigarette smoker but quit in 2021; she does endorse vaping. Patient is hypertensive at 106/94, tachycardic around 100 bpm, tachypneic at 28 RPM, and febrile at 37.9 C at time of admission. ED course: Acetaminophen 1000 mg IV NSS 500 mL IV ROS: Patient endorses fever, chills, night-sweats, dizziness/lightheadedness, URBINA, brain fog, chest pain with radiation to the jaw bilaterally, pleuritic CP, and numbness/tingling in the left arm. Patient denies chest pain (at present) when sitting still, SOB, cough, abdominal pain, N/V/D, burning with urination, dysuria, blood in the urine/stool, and saddle anesthesia. Allergies Allergy/AdvReac Type Severity Reaction Status Date / Time morphine Allergy Intermediate Swelling Verified 06/24/22 16:25 of Lip/Tongue/Throat aspirin Allergy Unknown NOSE BLEEDS Verified 02/11/17 13:41 Bactrim Allergy Unknown HIVES Verified 02/11/17 13:41 sulfamethoxazole [Bactrim] Allergy Unknown HIVES Verified 06/24/22 16:25 trimethoprim [Bactrim] Allergy Unknown HIVES Verified 06/24/22 16:25 Home Medications Medication Instructions Recorded Confirmed Type duloxetine 60 mg capsule,delayed 60 mg PO HS ##0 12/08/16 07/15/24 History release sprinkle melatonin 10 mg PO HS ##0 12/08/16 07/15/24 History mycophenolate mofetil 500 mg tablet 500 mg PO BID ##0 12/08/16 07/15/24 History omeprazole 20 mg capsule,delayed 20 mg PO HS ##0 12/08/16 07/15/24 History release Vitamin D3 1,000 unit PO QAM ##0 02/01/17 07/15/24 History cetirizine 10 mg tablet 10 mg PO QAM ##0 02/01/17 07/15/24 History duloxetine 30 mg capsule,delayed 30 mg PO HS #0 caps 11/29/17 07/15/24 History release lisinopril 10 mg tablet 10 mg PO UD 06/25/22 07/15/24 History albuterol sulfate 90 mcg/actuation 2 puff inhalation .Q4-6H PRN 07/15/24 07/15/24 History aerosol inhaler cough/sob/wheezing aspirin 81 mg tablet,delayed 81 mg PO DAILY 07/15/24 07/15/24 History release diclofenac potassium 50 mg tablet 50 mg PO BID 07/15/24 07/15/24 History fluticasone propionate 50 1 spray intranasal BID 07/15/24 07/15/24 History mcg/actuation nasal spray,suspension Past Med/Surg History Problem List (Updated 07/15/24 @ 17:22 by DAVON CoelloC) Myocarditis Chest pain Aortoiliac occlusive disease Arterial insufficiency of lower extremity (Acute) Chronic anemia (Acute) Leukopenia (Acute) H/O: hysterectomy w oopherectomy for endometriosis Peripheral arterial disease Stenosis of artery of left lower extremity (Acute) SLE (systemic lupus erythematosus related syndrome) Rheumatoid arthritis Left arm cellulitis Left upper extremity swelling Social History Smoking Status: Former smoker Tobacco Type: Cigarettes Smoking End Date: September 2022; Hx Alcohol Use: No Hx Substance Use: No Preferred Language: Samoan Communication Ability: Effective Flight Operations Coordinator Required: No Beliefs That Will Affect Care: None Current Living Situation: Family Current Living Situation Comment: with mother and son Other Information That Helps Us Care for You: No Feels Safe at Home: Yes Safety Concerns: Feels Safe At This Time Assistive Devices: Glasses Review of Systems Review of Systems: See HPI above Physical Exam Physical Exam: General: no acute distress at rest; acute chest pain with deep breathes; pleasant affect; non-toxic appearing; cooperative; SpO2 97% on RA HEENT: normocephalic, atraumatic; no scleral icterus; PERRLA; vision and hearing grossly intact Neck: supple; no lymphadenopathy; trachea midline Skin: Erythematous skin and mildly diaphoretic; no cyanosis; no rashes, br uising, or lesions noted CV: chest wall is tender to palpation substernally; taking deep breaths causes the patient to jump; sitting the patient upright does not change her chest pain; RRR; S1/S2 normal; no murmurs/rubs/gallops; pulses intact and symmetric at radial, DP, and PT Lungs: no acute respiratory distress; symmetrical chest wall expansion; clear breath sounds across all lung heredia w/o adventitious sounds; no wheezing ABD: Soft, NTP; BS present; no rebound/guarding; no distention MSK: no tics or fasciculations; no edema noted in the LEs b/l, nonerythematous Neuro: A&Ox3; normal mood and affect; fluent speech; no focal deficits; sensation grossly intact in the LEs b/l Results & Data Results & Data Vital Signs (Past 12 Hours) Vital Signs Temp Pulse Pulse Resp BP BP Pulse Ox 07/15/24 15:35 99 H 28 H 95 07/15/24 15:35 96 H 20 166/94 H 98 07/15/24 15:13 112 H 07/15/24 15:01 37.9 C H 107 H 18 145/88 H 97 07/15/24 15:01 97 07/15/24 15:01 37.9 C H 107 H 18 145/88 H 97 O2 Del Method 07/15/24 15:35 Room Air 07/15/24 15:35 Room Air 07/15/24 15:13 07/15/24 15:01 Room Air 07/15/24 15:01 Room Air 07/15/24 15:01 Room Air Laboratory Results Abnormal lab results 07/15/24 Range/Units 15:02 RBC 4.16 L (4.20-5.40) M/uL Hgb 11.0 L (12.0-16.0) g/dl Hct 34.5 L (37.0-47.0) % MCHC 31.9 L (32.0-36.0) g/dL Lymph # (Auto) 0.97 L (1.20-3.40) K/uL Sodium 133 L (136-145) mmol/L Glucose 100 H (70-99(Fasting)) mg/dl Troponin I High Sens 32.7 H (0-14) pg/ml Total Protein 8.6 H (6.0-8.3) gm/dl Globulin 4.3 H (2.5-4.0) gm/dl Diagnostic Findings Chest CTA 07/15/24 15:07 CT angio chest PE protocol HISTORY: 59 years-old Female with Chest Pain, eval for PE. Acute chest pain with shortness of breath TECHNIQUE: Multiple CTA images of the chest were obtained after the intravenous administration of 116 ml Optiray. Coronal and sagittal MIPS were obtained from the axial data set and were submitted for review. All measurements were obtained according to NASCET criteria. A dose lowering technique was utilized adhering to the principles of ALARA. COMPARISON: None. FINDINGS: CTA: Mild cardiomegaly. Trace pericardial effusion. There are several epicardial lymph nodes measuring up to 10 x 8 mm on image 78 series 6 and 1.2 x 0.9 cm on image 78. There is thickening throughout the majority of the left ventricular myocardium with decreased subendocardial enhancement within the apical and superolateral sewell. Mild adjacent inflammatory stranding is also noted. No thoracic aortic aneurysm or dissection. No pulmonary emboli. CT CHEST: No dominant thyroid nodule is seen. No pathologically adenopathy by CT size criteria. Mild bilateral groundglass densities, likely atelectatic. Mild bronchial wall thickening. There is no pneumothorax, pleural effusion or focal airspace consolidation. The imaged upper abdominal structures are unremarkable. Spleen is upper limits of normal in size. The osseous structures appear intact. IMPRESSION: 1. No pulmonary emboli identified. 2. There is abnormal appearance of the left ventricular myocardium as above. Differential considerations include an acute or subacute myocardial infarction versus myocarditis. Correlation with serum troponin's, EKG findings and echocardiogram recommended. 3. Trace pericardial effusion with borderline enlarged epicardial lymph nodes. 4. Findings suggestive of bronchitis versus reactive airway disease with mild atelectasis. Findings were discussed with Dr. Hector Cardenas on 07/15/2024 at 4:10 PM. ACT 112: Negative or not required by law. The above report was generated using voice recognition software. It may contain grammatical, syntax or spelling errors. Electronically signed by: Anatoly Calderón M.D. 07/15/2024 4:[address] 07/15/24 15:08 CT SCAN OF THE BRAIN WITHOUT IV CONTRAST CLINICAL HISTORY: Syncope COMPARISON STUDY: No priors. TECHNIQUE: Unenhanced axial CT scan of the brain is performed from the vertex to the skull base. A dose lowering technique was utilized adhering to the principles of ALARA. CT DOSE: 990.3 mGy.cm FINDINGS: Brain parenchyma: The brain parenchyma is normal in appearance. There is no hemorrhage, mass effect, or evidence of acute territorial ischemia by CT criteria. Calloway-white matter differentiation is preserved. No extra-axial fluid collection is seen. Ventricles, sulci, cisterns: Normal in configuration. Intracranial vasculature: The visualized intracranial vasculature at the skull base is normal in appearance. Calvarium: Unremarkable. Sinuses and mastoids: There is trace mucosal thickening in the left maxillary antrum. The remaining visualized paranasal sinuses are clear. The mastoid air cells are well pneumatized. Orbits: The bony orbits are grossly intact. IMPRESSION: There is no hemorrhage, mass effect, or evidence of acute territorial ischemia by CT criteria. ACT 112: Negative or not required by law. Electronically signed by: Bassem Ramos M.D. 07/15/2024 3:34 PM ECG Additional Comments: ECG revealed NSR at 96 BPM; QTc 548; abnormal EKG (possible anterior infarct, age-indeterminate) Code Status & VTE Plan Code Status Full code VTE Prophylaxis Plan VTE Prophylaxis will be ordered: Yes Supervising Physician Co-Signing Physician Notes Glenny is a 59-year-old female with a past medical history of of SLE, PAD, left lower extremity arterial stenosis, rheumatoid arthritis, aortic iliac disease on mycophenolate for SLE who presented to the ER on referral from PCP for chest pain with radiation to the jaw and numbness of the left arm. Patient had not had any preceding anginal symptoms/equivalents, has had sinus congestion/infection with fatigue in the last few weeks. Patient has no chest pain at rest but when lying on her right side or taking a deep breath does have severe stabbing pain. This radiates into her jaw. Due to chest pain with radiation to the jaw, elevated troponin on admission, and EKG with ST changes in V2 without territorial change or reciprocal change Case was reviewed with cardiology. Heparin was not recommended at this time, myocarditis was suspected, stat echo was ordered. CTAchest showed abnormal appearance of the left ventricular myocardium suspicious for CO versus myocarditis with trace pericardial effusion and borderline enlarged epicardial lymph nodes. No PEs were seen. CThead was without acute findings. High sensitive troponin 32.7, trended. Bio fire is negative Lyme is ordered, pending History of lupus with treatment on mycophenolate at baseline, has a 8/25% risk of myocarditis development due to this. Given high risk of complication, couple levels/JUSTIN with reflex panel including dsDNA has been sent down. Patient reports she did have a lesion on the tip of her tongue during the illness. No obvious lesions on the hands or feet, with oral lesion? Viral carditis from coxsackie virus, and absence of true skin findings and no oral lesions seen on exam suspect less likely. Repeat troponin has normalized, low suspicion for ischemic disease Echo ordered. Patient does have a soft systolic murmur which is new compared to prior. Otherwise nondistressed. No lesions seen on hands or feet. Lungs are clear. Agree with treatment for suspected viral myocarditis and supportive care at this time. Discussed with cardiology. Would recommend deferring steroids at this point unless there was a clear indication from a noncardiac standpoint; agree with starting colchicine/NSAIDs at this time. Colchicine started. Given underlying vascular disease and aspirin requirement, will use aspirin BID full dose rather than ibuprofen. Agree with above. PG Care Time/CCT Total # of Minutes Spent Total Time Spent with Patient: Total time spent is greater than 50% in coordination of care (as documented) at patient's floor/unit and/or counseling patient: C[place] [address] INT INP/OBS CARE 3/75MIN Patient Type Established Medical Decision Making High Complexity Diagnoses Myocarditis I51.4 SLE (systemic lupus erythematosus related syndrome) M32.9 Aortoiliac occlusive disease I74.09 Peripheral arterial disease I73.9 Chest pain R07.9
[2024-07-15 17:14] LABS: Adenovirus PCR Not Detected (NotDetected); Bordetella parapertussis PCR Not Detected (NotDetected); Bordetella pertussis PCR Not Detected (NotDetected); Chlamydia pneumoniae PCR Not Detected (NotDetected); Coronavirus 229E PCR Not Detected (NotDetected); Coronavirus CoV-2 (COVID19)PCR Not Detected (NotDetected); Coronavirus HKU1 PCR Not Detected (NotDetected); Coronavirus NL63 PCR Not Detected (NotDetected); Coronavirus OC43PCR Not Detected (NotDetected); Human Metapneumovirus PCR Not Detected (NotDetected); Influenza A PCR Not Detected (NotDetected); Influenza B PCR Not Detected (NotDetected); Mycoplasma pneumoniae PCR Not Detected (NotDetected); Parainfluenza Virus 1 PCR Not Detected (NotDetected); Parainfluenza Virus 2 PCR Not Detected (NotDetected); Parainfluenza Virus 3 PCR Not Detected (NotDetected); Parainfluenza Virus 4 PCR Not Detected (NotDetected); Respiratory Syncytial VirusPCR Not Detected (NotDetected); Rhinovirus/Enterovirus PCR Not Detected (NotDetected)
[2024-07-15 18:12] LABS: Troponin I High Sensitivity 11.4 pg/ml (0-14)
[2024-07-15 18:34] LABS: C Reactive Protein 5.63 mg/dl (0-0.5)
[2024-07-15 18:45] LABS: Appearance Urine Clear (Clear); Bilirubin Urine Negative (Negative); Blood Urine Negative (Negative); Color Urine Yellow; Glucose Urine UA Negative (Negative); Ketones Urine Negative (Negative); Leukocyte Esterase Urine Negative (Negative); Nitrite Urine Negative (Negative); Protein Urine Negative (Negative); Specific Gravity Urine 1.033 (1.000-1.030); Urobilinogen Urine Negative (Negative); pH Urine 5.5 (4.5-7.5)
[2024-07-15] MEDS ORDERED: ALBUTEROL HFA 8 GM INHALER INH PRN (19:09)
[2024-07-15] MEDS: MYCOPHENOLATE MOFETIL 250 MG CAP PO SCH (21:12)
[2024-07-15] MEDS: PANTOprazole 40 MG TAB PO SCH (21:12)
[2024-07-15] MEDS: ENOXAPARIN INJ 40 MG/0.4 ML SYR SQ SCH (21:14)
[2024-07-15] MEDS: DICLOFENAC SODIUM 25 MG TABDR PO SCH (21:15)
[2024-07-15] MEDS: FLUTICASONE PROPIONATE NA SPR 16 GM BTL SCH (21:15)
[2024-07-15] MEDS: MELATONIN 3 MG TAB PO SCH (21:15)
[2024-07-15] MEDS: DULoxetine HCL 30 MG CAP PO SCH (21:15)
[2024-07-15] MEDS: DULoxetine HCL 60 MG CAP PO SCH (21:15)
[2024-07-15] MEDS: IBUPROFEN 600 MG TAB PO SCH (22:01)
[2024-07-15 22:06] LABS: RBC Morphology Unremarkable
[2024-07-15] MEDS: COLCHICINE 0.6 MG TAB PO SCH (22:34)
[2024-07-15] MEDS: ACETAMINOPHEN 325 MG TAB PO PRN (23:21)
[2024-07-16] MEDS: LACTATED RINGER'S 500 ML IV ONE (00:45)
[2024-07-16] MEDS: HYDROmorphone INJ 0.5 MG/0.5 ML SYR IV STA (02:00)
[2024-07-16 02:27] LABS: BUN Creatinine Ratio 18.8 (10-20); Calcium 9.2 mg/dl (8.6-10.3); Creatinine Clr Calc Pharmacy 67.9 ml/min; Magnesium 1.8 mg/dl (1.7-2.4); Potassium 4.1 mmol/L (3.5-5.1)
[2024-07-16 02:42] LABS: Troponin I High Sensitivity 22.1 pg/ml (0-14)
[2024-07-16] MEDS: ONDANSETRON INJ 2 MG/ML 2 ML VIAL IV STA (02:55)
[2024-07-16 06:58] LABS: Basophils # (auto) 0.02 K/uL (0.00-0.20); Basophils % (auto) 0.3 %; Eosinophils # (auto) 0.01 K/uL (0.00-0.50); Eosinophils % (auto) 0.2 %; Hematocrit (blood only) 30.2 % (37.0-47.0); Hemoglobin 9.7 g/dl (12.0-16.0); Immature Granulocytes # (auto) 0.03 K/uL (0.01-0.20); Immature Granulocytes % (auto) 0.5 %; Lymphocytes % (auto) 20.1 %; Mean Corpuscular Hemoglobin 26.8 pg (25.0-34.0); Mean Corpuscular Hgb Conc 32.1 g/dL (32.0-36.0); Mean Corpuscular Volume 83.4 fL (80.0-100.0); Mean Platelet Volume 10.9 fL (9.4-12.4); Monocytes # (auto) 0.68 K/uL (0.11-0.59); Monocytes % (auto) 10.5 %; Neutrophils # (auto) 4.44 K/uL (1.40-6.50); Neutrophils % (auto) 68.4 %; Platelet Count 171 K/uL (130-400); RDW Coefficient of Variation 14.1 % (11.5-14.5); RDW Standard Deviation 43.3 fL (36.4-46.3); Red Blood Count 3.62 M/uL (4.20-5.40); White Blood Count 6.48 K/ul (4.8-10.8)
[2024-07-16 07:12] LABS: BUN Creatinine Ratio 19.2 (10-20); C Reactive Protein 11.85 mg/dl (0-0.5); Calcium 9.4 mg/dl (8.6-10.3); Creatinine Clr Calc Pharmacy 64.2 ml/min; Potassium 4.1 mmol/L (3.5-5.1)
[2024-07-16 07:19] LABS: Troponin I High Sensitivity 35.4 pg/ml (0-14)
[2024-07-16] MEDS: ASPIRIN/ALUM/MAGNES/CAL CARB 325 MG TAB PO SCH (08:03)
[2024-07-16] MEDS: lisinopril 10 MG TAB PO SCH (08:03)
[2024-07-16] MEDS: CETIRIZINE HCL 10 MG TABLET PO SCH (08:03)
[2024-07-16] MEDS ORDERED: ASPIRIN 81 MG ECTAB PO SCH (09:00)
--- NOTE | 2024-07-16 09:58 | XCELERA ---
[id number]
[2024-07-16 10:16] LABS: Uric Acid 4.1 mg/dl (2.6-7.2)
--- NOTE | 2024-07-16 11:08 | Electrocardiogram Report ---
Test Reason : Blood Pressure : */* mmHG Vent. Rate : 112 BPM Atrial Rate : 112 BPM P-R Int : 122 ms QRS Dur : 90 ms QT Int : 338 ms P-R-T Axes : 58 10 41 degrees QTcB Int : 461 ms Sinus tachycardia RSR' or QR pattern in V1 suggests right ventricular conduction delay Nonspecific ST abnormality Abnormal ECG When compared with ECG of 25-Jun-2022 12:04, Vent. rate has increased by 44 bpm RSR' pattern in V1 is now Present Confirmed by Jason Cruz ([id number]) on 07/16/2024 11:08:29 AM Referred By: REFERRED SELF Confirmed By: Jason Cruz
--- NOTE | 2024-07-16 11:15 | Electrocardiogram Report ---
Test Reason : Blood Pressure : */* mmHG Vent. Rate : 96 BPM Atrial Rate : 96 BPM P-R Int : 138 ms QRS Dur : 90 ms QT Int : 434 ms P-R-T Axes : 53 -2 23 degrees QTcB Int : 548 ms Normal sinus rhythm Poor R wave progression, consider anterior KS vs. lead placement vs. LVH Nonspecific ST abnormality Prolonged QT Abnormal ECG When compared with ECG of 25-Jun-2022 12:04, T wave inversion no longer evident in Lateral leads QT has lengthened Confirmed by Jason Cruz ([id number]) on 07/16/2024 11:14:55 AM Referred By: REFERRED SELF Confirmed By: Jason Cruz
--- NOTE | 2024-07-16 11:25 | Electrocardiogram Report ---
Test Reason : Blood Pressure : */* mmHG Vent. Rate : 108 BPM Atrial Rate : 108 BPM P-R Int : 130 ms QRS Dur : 88 ms QT Int : 402 ms P-R-T Axes : 55 7 36 degrees QTcB Int : 538 ms Sinus tachycardia Possible Left atrial enlargement Nonspecific ST and T wave abnormality Prolonged QT Abnormal ECG When compared with ECG of 15-Jul-2024 15:42, (unconfirmed) No significant change was found Confirmed by Jason Cruz ([id number]) on 07/16/2024 11:25:28 AM Referred By: REFERRED SELF Confirmed By: Jason Cruz
--- NOTE | 2024-07-16 15:37 | Hospitalist Progress Note ---
Date of Service July 16, 2024 Assessment & Plan (1) Myocarditis: Plan: Myocarditis, suspect viral versus SLE associated Initially presented with pleuritic chest pain with radiation to the jaw on 07/15. ASA 324mg p.o. given en route for concerns of ischemic cardiac pain. sinus congestion for around 2 weeks prior which had actually been improving - Febrile at 37.9 degrees Celsius on arrival.BioFire negative on arrival. Troponin mildly elevated without continuous increase on trend. Chest pain-free at rest, had pain on inspiration - CTA without evidence of PE, some concern for abnormal left myocardium guest relations representative of myocarditis versus [place] - Echo: LVEF hyperdynamic, no wall motion abnormalities. Mild concentric LVH more than expected given age and comorbidities, recommended for outpatient follow-up with consideration of a cardiac MRI. No LVOT obstruction. Trivial pericardial effusion Lyme, mono, bio fire negative negative Babesia, coxsackie, Anaplasma PCR remain pending/ No evidence of tickborne illness on dmrst - Initially called [facility] Rheumatology and left , pending callback reviewed w/ [facility] rheumatology. In absence of clear infectious etiology, and with extended viral panel which all remains negative at this time although with tests as above pending reasonable to treat with steroids to cover for potential autoimmune/SLE associated myocarditis. Recommend starting methylprednisolone 250 mg twice daily at this time and following clinical response/progression. If CRP downtrends and patient is doing well they can follow-up with a taper to her security operations center operator. Additionally would recommend follow-up with rheumatology regarding her CellCept dosing which ideally would be increased to 1000 mg twice daily, with adjunct hydroxychloroquine. Subsequently received callback from [facility] outpt security operations center operator Dr. Ahmadi with additional recommendations as noted below. (2) SLE (systemic lupus erythematosus related syndrome): Plan: Mycophenolate continue current dose Did review with patient's security operations center operator Dr. Kecia Ahmadi evening of 07/16. Patient did have a elevated double-stranded DNA of 58.2 which was above goal of 25 in November and patient had not followed up since that time. Is at high risk for poorly controlled SLE with cardiac involvement Initially steroids were deferred due to fever and concern for potential underlying infectious source however she does not have leukocytosis, broad viral panel as remains negative, and she does not have any localizing symptoms outside of her chest discomfort on reassessment. Lyme is negative and while definitive DNA tests for tickborne pathogen are pending peripheral smear is negative and she does not have a transaminitis. Steroid induction is recommended. Confirmed with rheumatology that dosing is 250 mg of methylprednisolone for total of 500 mg daily which may be converted to prednisone 250mg BID on discharge and then tapered by 10mg/week. Given steroid induction would not recommend an increase in her mycophenolate at this time. Also note that she had been on methotrexate and hydroxychloroquine in the past although she was not tolerant of these treatments. Patient will be coordinated for a follow-up appointment with steroid dose review and further management for discharge with again would continue this dosing regimen at this time especially with likelihood of cardiac involvement. Appreciate recommendations. - DS-DNA and JUSTIN-Reflex panal remain pending Aspirin switched back to daily and colchicine held while on high-dose steroid treatment (3) Aortoiliac occlusive disease: Plan: S/p left external iliac stent placed in June 2022 Continue aspirin daily (4) Peripheral arterial disease: (5) Chest pain: Plan Disposition: Admit to [facility] telemetry Full code Heart healthy diet VTE PPx: Lovenox 40 mg SQ q24h Admission and Anticipated Discharge Date Admission Date: July 15, 2024 Subjective Patient was seen at the bedside. She reports she actually feels better this morning, on afternoon reassessment she feels while improved from yesterday continues to be uncomfortable throughout the day worsened with deep breathing or rolling onto her left side. Did have some fever and chills last night but has had no fevers today and otherwise feels well. Denies sinus congestion. Denies shortness of breath, difficulty breathing. Denies abdominal pain. Denies nausea/vomiting. No diarrhea. No dysuria/polyuria Physical Exam Physical Exam: General: A&Ox3. NAD. Cooperative. HEENT: Atraumatic, normocephalic. Vision and hearing grossly intact Pulm: CTAB A&P. -wheezes, -rales, -rhonchi. Symmetrical chest rise. No increased work of breathing. No respiratory distress. Cardiac: RRR, -mrg. Radial pulses intact and symmetrical. Abdominal: Nontender, nondistended, soft. BS present. Results & Data Results & Data Vital Signs (Past 12 Hours) Vital Signs Temp Pulse Pulse Resp BP Pulse Ox O2 Del Method 07/16/24 15:11 64 07/16/24 12:39 Room Air 07/16/24 11:11 36.3 C L 61 18 107/64 97 Room Air 07/16/24 08:52 36.5 C 64 20 108/68 96 Room Air 07/16/24 07:03 75 07/16/24 04:50 37.0 C 95 H 18 123/66 94 Room Air PG Care Time/CCT Total # of Minutes Spent Total Time Spent with Patient: Total time spent is greater than 50% in coordination of care (as documented) at patient's floor/unit and/or counseling patient: Coding Level of Care Code 74623 SUB INP/OBS CARE 3/50MIN Diagnoses Myocarditis I40.9 Chronicity: acute Myocarditis type: unspecified SLE (systemic lupus erythematosus related syndrome) M32.9 Aortoiliac occlusive disease I74.09 Peripheral arterial disease I73.9 Chest pain R07.1 Chest pain type: chest pain on breathing (1) Myocarditis Chronicity: acute Myocarditis type: unspecified Qualified Code(s): I40.9 - Acute myocarditis, unspecified (5) Chest pain Chest pain type: chest pain on breathing Qualified Code(s): R07.1 - Chest pain on breathing
--- NOTE | 2024-07-16 16:57 | Cardiology Consultation ---
Date of Consultation July 16, 2024 Assessment & Plan (1) Chest pain: 2. Suspected pericarditis 3. LVH? out of proportion to normal hypertension 4. SLE, rheumatoid arthritis 5. PADpost left EIA stent 06/2022 6. Chronic anemia New pleuritic chest pain in the setting of new ST elevation/NE depression, trace pericardial effusion and elevated CRP most consistent with acute pericarditis. Potentially viral versus autoimmune associated. ECG/minimal troponin changes not secondary to ACS. Minimal evidence of myocarditis. CT findings nonspecific versus artifact. Presently mild residual chest discomfort on NSAIDs, colchicine. Recommendations: Agree with NSAIDs, colchicine. No need for additional steroids unless needed otherwise for SLE flare Continue to follow inflammatory markers No need for additional ischemic testing, beta-zuri or anticoagulation at this time Continue home statin, FITO Recommend considering cardiac MRI as an outpatient for further evaluation of possible myocarditis and rule out HCM in the setting of LVH which seems out of proportion to HTN. History of Present Illness Attending Physician: Alexander Earl MD History of Present Illness Ms. Silva is a very pleasant 59-year-old woman with a history of lupus, rheumatoid arthritis seen today due to chest pain and concern for myopericarditis. Past medical history also includes PAD post EIA stenting (8 x 39 Viabahn 06/2022 Simoni), chronic anemia. Denies hypertension but has been on lisinopril since PAD diagnosis. The admission patient woke up at approximately 4 AM with chest pain. She then had a questionable fall versus presyncopal event while walking to the bathroom. Seen by her PCP later in the day and referred to ED. Continued to have primarily pleuritic left-sided pain also worse if lies on left side. Has never had similar pain in the past. The preceding weeks did have sinusitis but no fevers or chills at home. No change to home CellCept. In ED hypertensive to 170s, febrile to 102. ECG showed sinus rhythm with borderline ST lesion in V1, V2 and borderline NE depression most notable in I, II. HS TropI initially 3 to211 and is trended back up to 35. Hemoglobin initially 11 down to 9.7. CRP 5.6 up to 11.8. Chest CTA negative for PE, findings suggestive of bronchitis. Cardiomegaly also noted with "decrease subendocardial enhancement within apical, superolateral sewell." Started on aspirin 325 twice daily, colchicine and continued on home diclofenac, CellCept. Today comfortable, chest pain improved still with pleuritic symptoms. Echo today shows hyperdynamic function, no wall motion abnormalities, LVH with borderline ALEJANDRO and trivial pericardial effusion. Family history: No premature CAD, SCD, cardiomyopathy. Social history: Prior long-term smoker, quit in 2021. Works managing grocery store Allergies Allergy/AdvReac Type Severity Reaction Status Date / Time morphine Allergy Intermediate Swelling Verified 06/24/22 16:25 of Lip/Tongue/Throat aspirin Allergy Unknown NOSE BLEEDS Verified 02/11/17 13:41 Bactrim Allergy Unknown HIVES Verified 02/11/17 13:41 sulfamethoxazole [Bactrim] Allergy Unknown HIVES Verified 06/24/22 16:25 trimethoprim [Bactrim] Allergy Unknown HIVES Verified 06/24/22 16:25 Home Medications Medication Instructions Recorded Confirmed Type duloxetine 60 mg capsule,delayed 60 mg PO HS ##0 12/08/16 07/15/24 History release sprinkle melatonin 10 mg PO HS ##0 12/08/16 07/15/24 History mycophenolate mofetil 500 mg tablet 500 mg PO BID ##0 12/08/16 07/15/24 History omeprazole 20 mg capsule,delayed 20 mg PO HS ##0 12/08/16 07/15/24 History release Vitamin D3 1,000 unit PO QAM ##0 02/01/17 07/15/24 History cetirizine 10 mg tablet 10 mg PO QAM ##0 02/01/17 07/15/24 History duloxetine 30 mg capsule,delayed 30 mg PO HS #0 caps 11/29/17 07/15/24 History release lisinopril 10 mg tablet 10 mg PO UD 06/25/22 07/15/24 History albuterol sulfate 90 mcg/actuation 2 puff inhalation .Q4-6H PRN 07/15/24 07/15/24 History aerosol inhaler cough/sob/wheezing aspirin 81 mg tablet,delayed 81 mg PO DAILY 07/15/24 07/15/24 History release diclofenac potassium 50 mg tablet 50 mg PO BID 07/15/24 07/15/24 History fluticasone propionate 50 1 spray intranasal BID 07/15/24 07/15/24 History mcg/actuation nasal spray,suspension Patient History Social History Smoking Status: Former smoker Tobacco Type: Cigarettes Smoking End Date: September 2022; Hx Alcohol Use: No Hx Substance Use: No Preferred Language: Filipino Communication Ability: Effective Price Checker Required: No Beliefs That Will Affect Care: None Current Living Situation: Family Current Living Situation Comment: with mother and son Other Information That Helps Us Care for You: No Feels Safe at Home: Yes Safety Concerns: Feels Safe At This Time Assistive Devices: Glasses Review of Systems Review of Systems: All systems reviewed & are unremarkable except as noted in HPI & below Physical Exam Physical Exam: General: Comfortable HEENT: Sclerae anicteric Lungs: Clear to auscultation bilaterally, no crackles or wheezes Cardiac: Regular rate and rhythm, no murmurs. No rubs Vascular: 2+ radial Abdomen: Soft, nontender Extremities: Well perfused, no peripheral edema. No rashes Neuro: Nonfocal Psych: Alert orient x3, normal affect and mood Results & Data Vital Signs (Past 12 Hours) Vital Signs Temp Pulse Pulse Resp BP Pulse Ox O2 Del Method 07/16/24 15:34 97.5 F L 61 18 119/69 96 Room Air 07/16/24 15:11 64 07/16/24 12:39 Room Air 07/16/24 11:11 97.3 F L 61 18 107/64 97 Room Air 07/16/24 08:52 97.7 F 64 20 108/68 96 Room Air 07/16/24 07:03 75 PG Care Time/CCT Total # of Minutes Spent Total Time Spent with Patient: Total time spent is greater than 50% in coordination of care (as documented) at patient's floor/unit and/or counseling patient: Coding Level of Care Code 81996 INT INP/OBS CARE 2/55MIN Diagnoses Chest pain R07.1 Chest pain type: chest pain on breathing (1) Chest pain Chest pain type: chest pain on breathing Qualified Code(s): R07.1 - Chest pain on breathing
[2024-07-16] MEDS ORDERED: methylPREDNISolone 125 MG/2 ML VIAL IV SCH (21:00)
[2024-07-16] MEDS: methylPREDNISolone 250 MG in DEXTROSE 5% 100 ML IV SCH (21:27)
[2024-07-16] MEDS: FAMOTIDINE 20 MG TAB PO PRN (21:35)
[2024-07-17 08:39] LABS: Hematocrit (blood only) 31.7 % (37.0-47.0); Immature Granulocytes # (auto) 0.01 K/uL (0.01-0.20); Immature Granulocytes % (auto) 0.2 %; Lymphocytes # (auto) 0.67 K/uL (1.20-3.40); Lymphocytes % (auto) 15.4 %; Mean Corpuscular Hemoglobin 26.3 pg (25.0-34.0); Mean Corpuscular Hgb Conc 31.5 g/dL (32.0-36.0); Mean Corpuscular Volume 83.4 fL (80.0-100.0); Mean Platelet Volume 10.5 fL (9.4-12.4); Monocytes # (auto) 0.08 K/uL (0.11-0.59); Monocytes % (auto) 1.8 %; Neutrophils % (auto) 82.6 %; Platelet Count 179 K/uL (130-400); RDW Coefficient of Variation 13.9 % (11.5-14.5); RDW Standard Deviation 42.4 fL (36.4-46.3); White Blood Count 4.36 K/ul (4.8-10.8)
[2024-07-17 08:51] LABS: C Reactive Protein 11.91 mg/dl (0-0.5); Calcium 9.5 mg/dl (8.6-10.3); Creatinine Clr Calc Pharmacy 57.1 ml/min; Potassium 4.7 mmol/L (3.5-5.1)
[2024-07-17] MEDS: ASPIRIN 81 MG ECTAB PO SCH (09:53)
[2024-07-17 13:47] LABS: Complement C3 135 mg/dL (83-193)
--- NOTE | 2024-07-17 16:11 | Hospitalist Progress Note ---
Date of Service July 17, 2024 Assessment & Plan (1) Myocarditis: Plan: Myocarditis, suspect viral versus SLE associated Initially presented with pleuritic chest pain with radiation to the jaw on 07/15. ASA 324mg p.o. given en route for concerns of ischemic cardiac pain. sinus congestion for around 2 weeks prior which had actually been improving - Febrile at 37.9 degrees Celsius on arrival.BioFire negative on arrival. Troponin mildly elevated without continuous increase on trend. Chest pain-free at rest, had pain on inspiration - CTA without evidence of PE, some concern for abnormal left myocardium medical claims representative of myocarditis versus [place] - Echo: LVEF hyperdynamic, no wall motion abnormalities. Mild concentric LVH more than expected given age and comorbidities, recommended for outpatient follow-up with consideration of a cardiac MRI. No LVOT obstruction. Trivial pericardial effusion Lyme, mono, bio fire negative negative Babesia, coxsackie, Anaplasma PCR remain pending/ No evidence of tickborne illness on dmrst. 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 Treatment as noted below - Initially called [facility] Rheumatology and left VM, pending callback reviewed w/ [facility] rheumatology. In absence of clear infectious etiology, and with extended viral panel which all remains negative at this time although with tests as above pending reasonable to treat with steroids to cover for potential autoimmune/SLE associated myocarditis. Recommend starting methylprednisolone 250 mg twice daily at this time and following clinical response/progression. If CRP downtrends and patient is doing well they can follow-up with a taper to her eumatologist. Additionally would recommend follow-up with rheumatology regarding her CellCept dosing which ideally would be increased to 1000 mg twice daily, with adjunct hydroxychloroquine. Subsequently received callback from [facility] outpt quality audit representative Dr. Ahmadi with additional recommendations as noted below. (2) SLE (systemic lupus erythematosus related syndrome): Plan: Mycophenolate current dose continue Did review with patient's quality audit representative Dr. Kecia Ahmadi evening of 07/16. Patient did have a elevated double-stranded DNA of 58.2 which was above goal of 25 in November and patient had not followed up since that time. Is at high risk for poorly controlled SLE with cardiac involvement. Case was initially reviewed with in-house otology who also agreed with steroid treatment prior to callback from patient's [facility] quality audit representative Initially steroids were deferred due to fever and concern for potential unde rlying infectious source however she does not have leukocytosis, broad viral panel as remains negative, and she does not have any localizing symptoms outside of her chest discomfort on reassessment. Lyme is negative and while definitive DNA tests for tickborne pathogen are pending peripheral smear is negative and she does not have a transaminitis. Steroid induction is recommended. Confirmed with rheumatology that dosing is 250 mg of methylprednisolone for total of 500 mg daily which may be converted to prednisone 250mg BID on discharge and then tapered by 10mg/week. Given steroid induction would not recommend an increase in her mycophenolate at this time. Also note that she had been on methotrexate and hydroxychloroquine in the past although she was not tolerant of these treatments. Patient will be coordinated for a follow-up appointment with steroid dose review and further management for discharge with again would continue this dosing regimen at this time especially with likelihood of cardiac involvement. Appreciate recommendations. - DS-DNA and JUSTIN-Reflex panel remain pending. C4 is low consistent with SLE Aspirin switched back to daily and colchicine. Discontinued High dose methylprednisolone 250 mg twice daily continued. - Significant clinical improvement 07/17, CRP does not appear to have peaked but is with a minimal rate of rise. Suspect this will begin to downtrend 07/18. Would watch 1 additional day due to high risk of complications from SLE carditis, recommend monitoring until symptoms are either resolved or CRP peaks. Extensive discussion with [facility] case management and [facility] rheumatology for coordination of care. Patient has been scheduled for an outpatient follow-up appointment with Dr. Ahmadi on 07/21/24 a 9:00am. Unfortunately due to insuran ce this is out of network and patient would have to pay [id number] for this at this time. Potential to switch to [facility] providers, medical assistance programs and other services in house were offered to patient and reviewed with both patient and case management however given that she has followed with [facility] rheumatology for many years greatly prefers to follow with their services if possible and would rather pay [id number] even if necessary to maintain her continuity of care. D/w crime prevention police officer for [facility] Rheumatology directly to confirm appointment, pt is scheduled for follow-up of their at 07/21/2024 at 9 AM. Can convert methylprednisolone 250 mg BID to prednisone 250 mg p.o. twice daily likely tomorrow if doing well for dc. Will plan for down titration by 10 mg/week; this will be adjusted as needed at her follow-up appointment Follow-up for cardiac MRI as outpatient Continue PPI 40mg daily for gastric protection given very high doses of steroids and prior NSAID use (3) Aortoiliac occlusive disease: Plan: S/p left external iliac stent placed in June 2022 Continue aspirin daily (4) Peripheral arterial disease: Plan Disposition: Admit to [facility] telemetry Full code Heart healthy diet VTE PPx: Lovenox 40 mg SQ q24h Admission and Anticipated Discharge Date Admission Date: July 15, 2024 Estefani Murrieta is seen at the bedside this morning. She got a good nights rest and actually feels vastly improved today. Still has some pain with deep inspiration but this is almost completely resolved. No shortness of breath or difficulty breathing. She has not had any recurrent fever. No chills or night sweats. CRP continues to uptrend however appears to be rapidly slowing/peaking. Extensive discussion with case management and [facility] rheumatology office regarding follow-up care, see plan Physical Exam Physical Exam: General: A&Ox3. NAD. Cooperative. HEENT: Atraumatic, normocephalic. Vision and hearing grossly intact Pulm: CTAB A&P. -wheezes, -rales, -rhonchi. Symmetrical chest rise. No increased work of breathing. No respiratory distress. Cardiac: RRR, -mrg. Radial pulses intact and symmetrical. Abdominal: Nontender, nondistended, soft. BS present. Results & Data Results & Data Vital Signs (Past 12 Hours) Vital Signs Temp Pulse Pulse Resp BP Pulse Ox O2 Del Method 07/17/24 15:46 36.4 C L 68 16 145/65 H 94 Room Air 07/17/24 14:22 69 07/17/24 12:05 64 07/17/24 11:38 36.4 C L 64 18 133/70 97 Room Air 07/17/24 07:46 36.4 C L 67 18 149/66 H 99 Room Air PG Care Time/CCT Total # of Minutes Spent Total Time Spent with Patient: Total time spent is greater than 50% in coordination of care (as documented) at patient's floor/unit and/or counseling patient: Coding Level of Care Code 72800 SUB INP/OBS CARE 3/50MIN Diagnoses Myocarditis I40.9 Chronicity: acute Myocarditis type: unspecified SLE (systemic lupus erythematosus related syndrome) M32.9 Aortoiliac occlusive disease I74.09 Peripheral arterial disease I73.9 (1) Myocarditis Chronicity: acute Myocarditis type: unspecified Qualified Code(s): I40.9 - Acute myocarditis, unspecified
[2024-07-17 23:56] VITALS: TEMP 97.9
[2024-07-18 06:59] LABS: Hematocrit (blood only) 30.2 % (37.0-47.0); Hemoglobin 9.9 g/dl (12.0-16.0); Immature Granulocytes # (auto) 0.03 K/uL (0.01-0.20); Immature Granulocytes % (auto) 0.3 %; Lymphocytes # (auto) 1.07 K/uL (1.20-3.40); Lymphocytes % (auto) 11.7 %; Mean Corpuscular Hemoglobin 26.5 pg (25.0-34.0); Mean Corpuscular Hgb Conc 32.8 g/dL (32.0-36.0); Mean Platelet Volume 11.5 fL (9.4-12.4); Monocytes # (auto) 0.25 K/uL (0.11-0.59); Monocytes % (auto) 2.7 %; Neutrophils # (auto) 7.81 K/uL (1.40-6.50); Neutrophils % (auto) 85.3 %; Platelet Count 199 K/uL (130-400); RDW Coefficient of Variation 13.5 % (11.5-14.5); RDW Standard Deviation 39.8 fL (36.4-46.3); Red Blood Count 3.73 M/uL (4.20-5.40); White Blood Count 9.16 K/ul (4.8-10.8)
[2024-07-18] MEDS ORDERED: bisacodyL 5 MG TABEC PO PRN (07:19)
[2024-07-18] MEDS ORDERED: MAGNESIUM HYDROXIDE SUSP 30 ML UDC PO PRN (07:19)
[2024-07-18 07:25] LABS: C Reactive Protein 3.25 mg/dl (0-0.5); Calcium 9.2 mg/dl (8.6-10.3); Creatinine Clr Calc Pharmacy 57.1 ml/min; Potassium 4.6 mmol/L (3.5-5.1)
[2024-07-18 07:33] VITALS: BP 168/67; RESP 16; O2SAT 97
--- NOTE | 2024-07-18 08:03 | Discharge Summary ---
Date of Service July 18, 2024 Admission HPI Per Admitting Provider Glenny is a 59-year-old female with PMH of SLE, peripheral artery disease, and aortoiliac occlusive disease. She presented via EMS on 07/15 from her PCPs office for chest pain with radiation to the jaw and numbness in her left arm. Patient reports she felt fine when she went to bed last night. She has had a sinus infection x 3 weeks, and was feeling excessively fatigued last night so she went to bed around 5 PM. She then woke up around 4 AM to go to the bathroom, and is unsure if she tripped or passed out. She woke up 1 hour later, and noted that she had a bout of urinary incontinence. She was also having trouble breathing when she woke up, as well as pleuritic CP. Her PCP office sent her over out of concern for NV. Patient was given aspirin 325 mg en route via EMS. Patient characterizes her chest pain as "being stabbed in the heart" whenever she lies on her left side; she is fine when she lays on her right side. She is unsure if it is exertional, but does get chest pain at rest whenever she takes deep breaths in. The pain radiates to her jaw bilaterally. Earlier, there was radiation down her left arm, but she is not currently experiencing this now. No PMH of NV or stroke, but patient does have history of femoral artery stent in 2021 secondary to blood clot/PAD (per patient). She has not noticed any rashes, tick bites, or bruises. She denies history of recent alcohol use or IV drug use. She is a former tobacco cigarette smoker but quit in 2021; she does endorse vaping. Patient is hypertensive at 106/94, tachycardic around 100 bpm, tachypneic at 28 RPM, and febrile at 37.9 C at time of admission. ED course: Acetaminophen 1000 mg IV NSS 500 mL IV ROS: Patient endorses fever, chills, night-sweats, dizziness/lightheadedness, URBINA, brain fog, chest pain with radiation to the jaw bilaterally, pleuritic CP, and numbness/tingling in the left arm. Patient denies chest pain (at present) when sitting still, SOB, cough, abdominal pain, N/V/D, burning with urination, dysuria, blood in the urine/stool, and saddle anesthesia. [facility] reports copied below: [place], [place] [phone] CT Scan Report Patient: GLENNY VEGA Admit Date: 07/15/24 MR#: [id number] Address1: [address] [facility] [facility] Acct ID:[id number] Address2: [address] Date: 1965 [facility] Zip: [place] [address] Age: 59 Location: ED Sex: F Room/Bed: Att Phy: Diagnosis: CHEST PAIN Lesley Phy: Matthew Dudley PA-C Service Date: 07/15/24 Fam Phy: Interpreting Phy: Anatoly Tavarez Phy: Ordering Phy: Hector Cardenas MD cc: ~ CT angio chest PE protocol HISTORY: 59 years-old Female with Chest Pain, eval for PE. Acute chest pain with shortness of breath TECHNIQUE: Multiple CTA images of the chest were obtained after the intravenous administration of 116 ml Optiray. Coronal and sagittal MIPS were obtained from the axial data set and were submitted for review. All measurements were obtained according to NASCET criteria. A dose lowering technique was utilized adhering to the principles of ALARA. COMPARISON: None. FINDINGS: CTA: Mild cardiomegaly. Trace pericardial effusion. There are several epicardial lymph nodes measuring up to 10 x 8 mm on image 78 series 6 and 1.2 x 0.9 cm on image 78. There is thickening throughout the majority of the left ventricular myocardium with decreased subendocardial enhancement within the apical and superolateral sewell. Mild adjacent inflammatory stranding is also noted. No thoracic aortic aneurysm or dissection. No pulmonary emboli. CT CHEST: No dominant thyroid nodule is seen. No pathologically adenopathy by CT size criteria. Mild bilateral groundglass densities, likely atelectatic. Mild bronchial wall thickening. There is no pneumothorax, pleural effusion or focal airspace consolidation. The imaged upper abdominal structures are unremarkable. Spleen is upper limits of normal in size. The osseous structures appear intact. IMPRESSION: 1. No pulmonary emboli identified. 2. There is abnormal appearance of the left ventricular myocardium as above. Differential considerations include an acute or subacute myocardial infarction versus myocarditis. Correlation with serum troponin's, EKG findings and echocardiogram recommended. 3. Trace pericardial effusion with borderline enlarged epicardial lymph nodes. 4. Findings suggestive of bronchitis versus reactive airway disease with mild atelectasis. Findings were discussed with Dr. Hector Cardenas on 07/15/2024 at 4:10 PM. ACT 112: Negative or not required by law. The above report was generated using voice recognition software. It may contain grammatical, syntax or spelling errors. Electronically signed by: Anatoly Calderón M.D. 07/15/2024 4:14 PM Dictated: 07/15/24 1605 Transcribed: 07/15/[address] SCAN OF THE BRAIN WITHOUT IV CONTRAST CLINICAL HISTORY: Syncope COMPARISON STUDY: No priors. TECHNIQUE: Unenhanced axial CT scan of the brain is performed from the vertex to the skull base. A dose lowering technique was utilized adhering to the principles of ALARA. CT DOSE: 990.3 mGy.cm FINDINGS: Brain parenchyma: The brain parenchyma is normal in appearance. There is no hemorrhage, mass effect, or evidence of acute territorial ischemia by CT criteria. Calloway-white matter differentiation is preserved. No extra-axial fluid collection is seen. Ventricles, sulci, cisterns: Normal in configuration. Intracranial vasculature: The visualized intracranial vasculature at the skull base is normal in appearance. Calvarium: Unremarkable. Sinuses and mastoids: There is trace mucosal thickening in the left maxillary antrum. The remaining visualized paranasal sinuses are clear. The mastoid air cells are well pneumatized. Orbits: The bony orbits are grossly intact. IMPRESSION: There is no hemorrhage, mass effect, or evidence of acute territorial ischemia by CT criteria. ACT 112: Negative or not required by law. 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 Differential does include viral however all viral testing available was negative at time of diagnosis and patient was with elevated inflammatory markers and history of persistently elevated dsDNA To do as outpatient: Continue high dose prednisone 250 milligrams twice daily dosing. Taper as recommended by rheumatology, anticipate approximately 10 mg/week Follow-up on remaining viral labs; coxsackie send out, Babesia PCR, Anaplasma PCR remain pending at time of discharge Trend CBC, CRP, ESR as outpatient Follow-up with rheumatology on 07/21/2024 at 9 AM Routine follow-up to PCP Follow-up as outpatient for cardiac MRI Follow-up on send out JUSTIN and double-stranded DNA titers. C3 levels were normal, C4 levels were low during admission Continue PPI, increased to omeprazole 40 mg daily for gastric protection while on high-dose steroids. Patient was instructed continue aspirin 81 mg daily otherwise avoid all NSAIDs Myocarditis, suspect viral versus SLE associated Initially presented with pleuritic chest pain with radiation to the jaw on 07/15. ASA 324mg p.o. given en route for concerns of ischemic cardiac pain. sinus congestion for around 2 weeks prior which had actually been improving EKG with a single V2 ST change without reciprocal changes or territorial change - Febrile at 37.9 degrees Celsius on arrival.BioFire negative on arrival. Troponin 32/11 on admission. Mild troponin leak at 22/35 on trend. chest pain- free at rest, had pain on inspiration and positionally - CTA without evidence of PE, some concern for abnormal left myocardium advertising sales representative of myocarditis versus NV - Echo: LVEF hyperdynamic, no wall motion abnormalities. Mild concentric LVH more than expected given age and comorbidities, recommended for outpatient follow-up with consideration of a cardiac MRI. No LVOT obstruction. Trivial pericardial effusion Lyme, mono, bio fire negative negative Babesia, coxsackie, Anaplasma PCR remain pending, No evidence of tickborne illness on smear. 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 Treatment as noted below Cardiology was consulted and reviewed case. Case was not felt to reflect ischemic disease. Did recommend follow-up for cardiac MRI given slightly dispro portionate LVH given degree of hypertension, and initially recommended NSAIDs/colchicine for pericarditis/myocarditis which were started and continued for 1 day until steroids were initiated as noted below - Initially called [facility] Rheumatology; pending review did discuss with in-house [facility] rheumatology. In absence of clear infectious etiology, and with extended viral panel which all remains negative at this time although with tests as above pending reasonable to treat with steroids to cover for potential autoimmune/SLE associated myocarditis. Recommend starting methylprednisolone 250 mg twice daily at this time and following clinical response/progression. If CRP downtrends and patient is doing well they can follow-up with a taper to her airplane rental clerk. Additionally would recommend follow-up with rheumatology regarding her CellCept dosing which ideally would be increased to 1000 mg twice daily, with adjunct hydroxychloroquine if not already tried in the past. Subsequently received callback from [facility] outpt airplane rental clerk Dr. Ahmadi with additional recommendations as noted below. Did review with patient's airplane rental clerk Dr. Kecia Ahmadi evening of 07/16. Patient did have a elevated double-stranded DNA of 58.2 which was above goal of 25 in November and patient had not followed up since that time. Is at high risk for poorly controlled SLE with cardiac involvement. Case was initially reviewed with in-house otology who also agreed with steroid treatment prior to callback from patient's [facility] airplane rental clerk Initially steroids were deferred due to fever and concern for potential underlying infectious source however she does not have leukocytosis, broad viral panel as remains negative, and she does not have any localizing symptoms outside of her chest discomfort on reassessment. Lyme is negative and while definitive DNA tests for tickborne pathogen are pending peripheral smear is negative and she does not have a transaminitis. Steroid induction is recommended. Confirmed with rheumatology that dosing is 250 mg of methylprednisolone for total of 500 mg daily which may be converted to prednisone 250mg BID on discharge and then tapered by 10mg/week. Given steroid induction would not recommend an increase in her mycophenolate at this time. Also note that she had been on methotrexate and hydroxychloroquine in the past although she was not tolerant of these tr eatments. Patient will be coordinated for a follow-up appointment with steroid dose review and further management for discharge with again would continue this dosing regimen at this time especially with likelihood of cardiac involvement. Appreciate recommendations. - DS-DNA and JUSTIN-Reflex panel remain pending. C4 is low consistent with SLE Aspirin switched back to daily and colchicine. Discontinued after steroids initiated and patient was continued on methylprednisolone to 50 mg twice daily while inpatient - Significant clinical improvement 07/17, CRP does not appear to have peaked but is with a minimal rate of rise. This was rapidly downtrending by 07/18. Extensive discussion with [facility] case management and [facility] rheumatology for coordination of care. Patient has been scheduled for an outpatient follow-up appointment with Dr. Ahmadi on 07/21/24 at 9:00am. Unfortunately due to insurance this is out of network and patient would have to pay [id number] for this at this time. Potential to switch to [facility] providers, medical assistance programs and other services in house were offered to patient and reviewed with both patient and case management however given that she has followed with [facility] rheumatology for many years greatly prefers to follow with their services if possible and would rather pay [id number] even if necessary to maintain her continuity of care. D/w office machines sales representative for [facility] Rheumatology directly to confirm appointment, pt is scheduled for follow-up of their at 07/21/2024 at 9 AM. Continue PPI 40mg daily for gastric protection given very high doses of steroids and prior NSAID use Patient had complete pain resolution on 07/18/2024, felt clinically well, and is with a rapidly downtrending CRP. She is discharged to transition to prednisone 250 mg by mouth twice daily with close follow-up for tapering and further adjustments by her outpatient providers (2) SLE (systemic lupus erythematosus related syndrome): See myocarditis discussion above. (3) Aortoiliac occlusive disease: S/p left external iliac stent placed in June 2022 Continue aspirin daily (4) Peripheral arterial disease: Coding Level of Care Code 84506 INP/OBS DISCH >30 MIN Diagnoses Myocarditis I40.9 Chronicity: acute Myocarditis type: unspecified SLE (systemic lupus erythematosus related syndrome) M32.9 Aortoiliac occlusive disease I74.09 Peripheral arterial disease I73.9
[2024-07-18] MEDS: POLYETHYLENE (MIRALAX) 17 GM PACK PO SCH (08:08)
[2024-07-18 10:48] VITALS: PULSE 111
[2024-07-19 15:33] LABS: Anti Nuclear Antibody Screen POSITIVE (NEGATIVE); Babesia microti DNA Not Detected (Not Detected)
[2024-07-20 08:20] LABS: ANA Pattern Nuclear, Speckled; ANA Titer > OR = 1:1280 titer
[2024-07-20 13:18] LABS: Anti-dsDNA Recombinant 13 IU/mL
== END 2024-07-18 12:31 | disposition home or self-care (01) | DRG 545 ==
LOC: ED 14:46 → 2N 17:34